=== PATIENT | female | born 1990 | race Caucasian/White ===

== ENCOUNTER 2021-12-26 12:16 | Outpatient (CLI) | payer BC, MEDICAID, SELFPAY ==
[2021-12-26] VITALS (13 sets, daily range): BP systolic 99–108; BP diastolic 59–65; PULSE 81–92; RESP 16–18; TEMP 36.8; O2SAT 97–98
[2021-12-26 13:27] LABS: Hematocrit 34.8 % (33.0-51.0); Hemoglobin* 11.2 gm/dL (12.0-16.0); Mean Corpuscular HGB Conc 32 gm/dL (32-36); Mean Corpuscular Hemoglobin 29 pg (26-34); Mean Corpuscular Volume 90 fL (80-100); Platelet Count* 263 K/uL (140-440); Red Blood Count 3.88 m/uL (4.00-5.20); Slide Review Reflex No; White Blood Count* 7.14 K/uL (4.50-11.00)
[2021-12-26 13:58] LABS: Alanine Aminotransferase* 14 U/L (4-35); Aspartate Amino Transferase* 17 U/L (12-35); Blood Urea Nitrogen* 6 mg/dL (5-24); Creatinine* 0.4 mg/dL (0.5-1.5); Estimated Glomerular Filt Rate 135.62
[2021-12-26 13:58] LABS: Total Protein Urine 12 mg/dL
[2021-12-26 13:59] LABS: Creatinine Urine 67.1 mg/dL
[2021-12-26 14:01] LABS: Clue Cells >20% Clue Cells Seen (None Seen); Trichomonas No Trichomonas Seen (None Seen); Yeast No Yeast Seen (None Seen)
[2021-12-26 14:19] LABS: Appearance Urine Cloudy (Clear); Bilirubin Urine Negative (Negative); Blood Urine Negative (Negative); Color Urine Yellow (Yellow); Glucose Urine Negative (Negative); Ketones Urine Negative (Negative); Leukocyte Esterase Urine Trace (Negative); Nitrite Urine Negative (Negative); Protein Urine Negative (Negative); Urobilinogen Urine 0.2 (0.2-1.0); pH Urine 7.5 (5.0-8.5)
[2021-12-26 14:27] LABS: RBC Urine 0-2 (0-2)
[2021-12-26 14:28] LABS: Amorphous Sediment Urine Few; Bacteria Urine Few
[2021-12-26 15:19] LABS: Fetal Fibronectin* Negative (Negative)
--- NOTE | 2021-12-26 15:28 | P.OBO_ITS ---
OB Outpatient HPI History of Present Illness Time Seen by Provider: 14:30 Date Seen: 12/26/21 History of Present Illness: Earnestine is a 31 year old at weeks gestation by LMP, STALIN 03/21/2022, presents with headache, visual changes, and abdominal cramping. Patient reports she always has some baseline cramping. She has noticed more in the last few days. She denies any recent intercourse. She did go swimming in their home pool with her kids recently and noted some changes in her discharge after. Patient also reports some intermittent dizziness and heart palpitations. Patient has known prolonged QT syndrome. Baby moving naturally: Yes Bleeding: No Contractions: Yes (Cramping) Leaking fluid: No Discharge: Yes Heartburn: No Back pain: No Meds Home Medications and Allergies Home Medications Medication Instructions Recorded Confirmed Type albuterol 90 mcg/actuation aerosol mcg INHALATION PRN 12/26/21 History inhaler shapcbskec-xivyonvvebsuw-mhzpenvs cap PRN 12/26/21 History 50 mg-325 mg-40 mg capsule lamotrigine 100 mg tablet mg PO DAILY 12/26/21 History lorazepam 0.5 mg tablet (Ativan) mg 12/26/21 History prenat.vits,kingsley,iru-yruc-qrlqw 1 tab PO DAILY 12/26/21 12/26/21 History Allergies Allergy/AdvReac Type Severity Reaction Status Date / Time latex Allergy Unknown Verified 12/13/21 14:31 omeprazole Allergy Unknown Verified 12/13/21 14:31 ranitidine Allergy Unknown Verified 12/13/21 14:31 seafood Allergy Unknown Uncoded 12/13/21 14:31 [facility] Medical History (Updated 12/26/21 @ 16:07 by Damari Orta CNM) History of depression Social History (Updated 12/19/21 @ 08:15 by Kelly Tellez) 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 ? Constitutional Constitutional: no acute distress Routine HEENT Exam Head: Present atraumatic Routine Respiratory Exam Comments: Regular Routine Cardiovascular Exam Cardiovascular: RRR Comments: EKG results: Normal rate with occasional PVC. Prolonged QT. Routine Exam External: Present normal external exam and discharge Detailed Labor and Delivery Exam Patient Gravid: yes Dilation (cm): 1 Effacement (%): 10 Cervix position: anterior Consistency: firm Tachysystole: No Contraction intensity: Mild (when palpable, not all palpate) Fetus (Single) Station: -4 Heart Rate Baseline: 135 Monitor Accelerations: Present (10x10) Monitor Decelerations: None Family Manager Variability: Moderate (11-25) (6-25 ) Routine Skin Exam Present intact Routine Neurological Exam Present alert and oriented X3 Routine Psychiatric Exam Present normal affect, cooperative and anxious Detailed Psychiatric Exam Mood and affect: Present flat Labs Labs Laboratory Tests 12/26/21 12/26/21 12/26/21 Range/Units Unknown 13:20 13:20 WBC 7.14 (4.50-11.00) K/uL RBC 3.88 L (4.00-5.20) m/uL Hgb 11.2 L (12.0-16.0) gm/dL Hct 34.8 (33.0-51.0) % MCV 90 (80-100) fL MCH 29 (26-34) pg MCHC 32 (32-36) gm/dL Plt Count 263 (140-440) K/uL BUN 6 (5-24) mg/dL Creatinine 0.4 L (0.5-1.5) mg/dL AST 17 (12-35) U/L ALT 14 (4-35) U/L Urine Color (Yellow) Urine Appearance (Clear) Urine pH (5.0-8.5) Ur Specific [place] (1.000-1.030) Urine Protein (Negative) Urine Glucose (UA) (Negative) Urine Ketones (Negative) Urine Blood (Negative) Urine Nitrite (Negative) Urine Bilirubin (Negative) Urine Urobilinogen (0.2-1.0) Ur Leukocyte Esterase (Negative) Urine RBC (0-2) Urine WBC (0-5) Ur Squamous Epith Cells (None-Few) Amorphous Sediment (None) Urine Bacteria (None) Urine Creatinine mg/dL Protein/Creatinin Ratio (0-0.19) Urine Total Protein mg/dL Vaginal Trichomonas (None Seen) Vaginal Yeast (None Seen) Vaginal Clue Cells (None Seen) Fibronectin Negative (Negative) 12/26/21 12/26/21 12/26/21 Range/Units 13:05 13:05 12:47 WBC (4.50-11.00) K/uL RBC (4.00-5.20) m/uL Hgb (12.0-16.0) gm/dL Hct (33.0-51.0) % MCV (80-100) fL MCH (26-34) pg MCHC (32-36) gm/dL Plt Count (140-440) K/uL BUN (5-24) mg/dL Creatinine (0.5-1.5) mg/dL AST (12-35) U/L ALT (4-35) U/L Urine Color Yellow (Yellow) Urine Appearance Cloudy A (Clear) Urine pH 7.5 (5.0-8.5) Ur Specific [place] 1.020 (1.000-1.030) Urine Protein Negative (Negative) Urine Glucose (UA) Negative (Negative) Urine Ketones Negative (Negative) Urine Blood Negative (Negative) Urine Nitrite Negative (Negative) Urine Bilirubin Negative (Negative) Urine Urobilinogen 0.2 (0.2-1.0) Ur Leukocyte Esterase Trace A (Negative) Urine RBC 0-2 (0-2) Urine WBC 2-5 (0-5) Ur Squamous Epith Cells None (None-Few) Amorphous Sediment Few A (None) Urine Bacteria Few A (None) Urine Creatinine 67.1 mg/dL Protein/Creatinin Ratio 0.10 (0-0.19) Urine Total Protein 12 mg/dL Vaginal Trichomonas No Trichomonas Seen (None Seen) Vaginal Yeast No Yeast Seen (None Seen) Vaginal Clue Cells >20% Clue Cells Seen (None Seen) Fibronectin (Negative) Assessment and Plan Assessment and plan (1) Bacterial vaginosis in : Status: Acute Assessment and Plan: Initially worked up for labor. Wet prep collected, >20% clue cells consi stent with BV. FFN collected, negative. UA/UC sent. CBC w/ pre-e labs Rx for Clindamycin 300 mg BID x 7 days Follow-up in clinic in 1 week, has appointment already with Dr. Terrell Reviewed warning s/sx of labor and when to return. (2) Visual changes: Status: Acute Assessment and Plan: CBC w/ pre-e labs, labs WNL. Visual changes resolved w/ rest. Declined Tylenol. Reviewed warning s/sx of pre-eclampsia. (3) Heart palpitations: Status: Acute Assessment and Plan: EKG, consistent with previous notation Has a referral to see a Clinical Cytogeneticist, has not been able to get in yet Reviewed common discomforts of the 2nd trimester. Long QT syndrome known, reviewed warning s/sx of when to seek emergency care. Plan for follow-up with symptoms at next visit and with cardiology. Plan Discharge home.
--- NOTE | 2021-12-26 16:31 | PC.OBNST ---
NST Note NST Note Start: 12/26/21 12:23 Freq: ONCE Status: Discharge Protocol: Document 12/26/21 14:30 WK (Rec: 12/26/21 16:04 WK [id number]) NST Note 5 Para (# of births) 3 EDC 03/21/22 Patient Presented with Complaint(s) of Contractions/cramping, Decreased movement, Nausea and vomiting,Headache Other Complaints Pt sent in from [facility] triage nurse for evaluation of decreased FM and r/o preeclampsia. Pt report feeling swollen and sore on wrists and ankles. States I feel like my face is more swollen. C/o headache, visual disturbances, and nausea, feeing decreased FM Only 4 times over the past 2 days. Also, C/O feeling cramping through out the day that comes and goes I don't know how often. Appropriate for Gestational Age Yes WILNER Muniz RNC Date 12/26/21 Appropriate for Gestational Age Yes RN Hannah RN Date 12/26/21 OB NST charge Yes Provider Evaluation of EFM Strip: Reactive: [] Appropriate for Gestational Age: [] Comments:
== END 2021-12-26 15:20 | disposition home or self-care (01) ==
LOC: OB OUT 12:16 → OB 12:21
PROVIDERS: Advanced Practice Midwife; Visit Provider Obstetrics & Gynecology
DX: O23.599 Infection of other part of genital tract in pregnancy, unspecified trimester (principal); O23.592 Infection of other part of genital tract in pregnancy, second trimester; B96.89 Other specified bacterial agents as the cause of diseases classified elsewhere; R00.2 Palpitations; R42 Dizziness and giddiness; R51.9 Headache, unspecified; H53.9 Unspecified visual disturbance; I45.81 Long QT syndrome; Z3A.28 28 weeks gestation of pregnancy
CPT/HCPCS: 36415; 59025; 81003; 81015; 82565; 84112; 84156; 84450; 84460; 84520; 85027; 87086; 87210; 93005; 99211; 99213

== ENCOUNTER 2021-12-28 11:17 | Outpatient (CLI) | payer BC, MEDICAID, SELFPAY ==
[2021-12-28 11:19] VITALS: PULSE 99; O2SAT 97
[2021-12-28 11:24] VITALS: BP 98/56; PULSE 103; PULSE 95; O2SAT 95
[2021-12-28 11:27] VITALS: RESP 16; TEMP 36.9
[2021-12-28 12:04] LABS: Appearance Urine Clear (Clear); Bilirubin Urine Negative (Negative); Blood Urine Negative (Negative); Color Urine Yellow (Yellow); Glucose Urine Negative (Negative); Ketones Urine 1+ (Negative); Leukocyte Esterase Urine Negative (Negative); Nitrite Urine Negative (Negative); Protein Urine 1+ (Negative); Specific Gravity Urine >= 1.030 (1.000-1.030); Urobilinogen Urine 0.2 (0.2-1.0)
[2021-12-28 12:16] LABS: Amorphous Sediment Urine Few; RBC Urine 0-2 (0-2); Squamous Epithelial Cell Urine Few (None-Few)
[2021-12-28] MEDS: LACTATED RINGERS 1000 ML IV (12:40)
[2021-12-28 13:26] VITALS: BP 109/66; PULSE 84
[2021-12-28] MEDS: NIFEdipine 10 MG CAPSULE 20 MG PO (13:39)
[2021-12-28 13:53] LABS: Fetal Fibronectin* Negative (Negative)
--- NOTE | 2021-12-28 14:15 | W.PM.OBO ---
OB Outpatient HPI History of Present Illness History of Present Illness: 31 year old woman at 28 1/7 weeks gestation by LMP consistent with 1st trimester ultrasound, STALIN 03/21/2022, presents with chief complaint of right lower quadrant pain. It is occasionally sharp and shooting. Comes and goes. Pain radiates into her right inner thigh. She was feeling no contractions upon presentation, but does report that she has had contractions in previous . No bleeding, no loss of fluid. Her is complicated by/notable for: 1. Episode of right lower quadrant pain in September. She ultimately underwent an MRI without contrast that was normal aside from a possible 6 cm fibroid. Follow-up ultrasound scheduled for next week. 2. Round ligament pain. She is followed by physical therapy. 3. Likely long QT syndrome. In the process of evaluation with [facility]. Her OB history is otherwise as documented in her problem list. She has never had a . Bleeding: No Contractions: No Meds Home Medications and Allergies Home Medications Medication Instructions Recorded Confirmed Type albuterol 90 mcg/actuation aerosol mcg INHALATION PRN 12/26/21 History inhaler ydnnehrtgx-qxkjrphwwdsgk-jouedcus cap PRN 12/26/21 History 50 mg-325 mg-40 mg capsule lamotrigine 100 mg tablet 100 mg PO DAILY 12/26/21 12/28/21 History lorazepam 0.5 mg tablet (Ativan) mg 12/26/21 History prenat.vits,kingsley,klu-ekzm-kinzx 1 tab PO DAILY 12/26/21 12/28/21 History Allergies Allergy/AdvReac Type Severity Reaction Status Date / Time latex Allergy Unknown Verified 12/13/21 14:31 omeprazole Allergy Unknown Verified 12/13/21 14:31 ranitidine Allergy Unknown Verified 12/13/21 14:31 seafood Allergy Unknown Uncoded 12/13/21 14:31 [facility] Medical History (Updated 12/28/21 @ 14:24 by Nicol Terrell MD) History of depression Social History (Updated 12/19/21 @ 08:15 by Kelly Tellez) 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: , 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, 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 Smoking Status: Never smoker Reproductive Health History : 5 Para: 3 History of multiple gestations: No History of ectopic pregnancies: No OB - H&P: Exam Physical Exam Vital signs: Temp Pulse Resp BP Pulse Ox 98.5 F 84 16 109/66 95 12/28/21 11:27 12/28/21 13:26 12/28/21 11:27 12/28/21 13:26 12/28/21 11:24 Narrative: EXAM: Vital Signs: as above Abdomen: Soft, mildly tender to deep palpation in right lower quadrant, no contractions palpated Fundal Height: Consistent with dates SVE: Per Pilar Horner RN, fingertip at internal os, long, high Nonstress test: Baseline 135, accelerations present, no decelerations, moderate variability. For short time, regular contractions are noted. These dissipate over prolonged monitoring. Labs Labs Laboratory Tests 12/28/21 12/28/21 Range/Units 12:40 11:56 Urine Color Yellow (Yellow) Urine Appearance Clear (Clear) Urine pH 6.0 (5.0-8.5) Ur Specific [place] >= 1.030 (1.000-1.030) Urine Protein 1+ A (Negative) Urine Glucose (UA) Negative (Negative) Urine Ketones 1+ A (Negative) Urine Blood Negative (Negative) Urine Nitrite Negative (Negative) Urine Bilirubin Negative (Negative) Urine Urobilinogen 0.2 (0.2-1.0) Ur Leukocyte Esterase Negative (Negative) Urine RBC 0-2 (0-2) Urine WBC 2-5 (0-5) Ur Squamous Epith Cells Few (None-Few) Amorphous Sediment Few A (None) Urine Bacteria None (None) Fibronectin Negative (Negative) Assessment and Plan Assessment and plan (1) contractions: Status: Acute Assessment and Plan: I am uncertain if this is the cause of her pain or not. She does not seem to be in labor. She was given a single dose of nifedipine 20 mg, and discomfort resolved. She will be asked to return with any recurrence of symptoms. Otherwise, she is to follow up on Friday next week. (2) Right lower quadrant abdominal pain affecting : Status: Acute Assessment and Plan: I actually suspect that the pain that she is describing is related to the psoas muscle given the location and radiation. I will send her a prescription for Flexeril to be used at home on a p.r.n. basis.
[2021-12-28 14:36] VITALS: BP 110/65; PULSE 93
--- NOTE | 2021-12-28 18:30 | PC.OBNST ---
NST Note NST Note Start: 12/28/21 11:10 Freq: ONCE Status: Active Protocol: Document 12/28/21 15:00 MMB (Rec: 12/28/21 16:18 MMB [id number]) NST Note 5 Para (# of births) 3 EDC 03/21/22 Patient Presented with Complaint(s) of Contractions/cramping Other Complaints Actively being treated for BV, pain radiating down right leg , abdominal pain after eating. Reactive No Appropriate for Gestational Age Yes WILNER Horner RN Date 12/28/21 Reactive No Appropriate for Gestational Age Yes WILNER Bronson RN Date 12/28/21 OB NST charge Yes Provider Evaluation of EFM Strip: Reactive: [] Appropriate for Gestational Age: [] Comments:
== END 2021-12-28 15:10 | disposition home or self-care (01) ==
LOC: OB OUT 11:18 → OB 14:27
PROVIDERS: Visit Provider Obstetrics & Gynecology
DX: O47.03 False labor before 37 completed weeks of gestation, third trimester (principal); Z3A.28 28 weeks gestation of pregnancy; R10.31 Right lower quadrant pain
CPT/HCPCS: 59025; 81003; 81015; 84112; 96360; 96361; 99213; A9270; J7120

== ENCOUNTER 2022-01-02 10:54 | Outpatient (RCR) | payer BC, MEDICAID, SELFPAY | END 2022-04-15 14:47 | disposition home or self-care (01) | PROVIDERS: Visit Provider Obstetrics & Gynecology | DX: R10.30 Lower abdominal pain, unspecified (principal); R27.8 Other lack of coordination; N39.3 Stress incontinence (female) (male); Z51.89 Encounter for other specified aftercare | CPT/HCPCS: 97110; 97112 ==

== ENCOUNTER 2022-01-02 12:01 | Outpatient (CLI) | payer BC, MEDICAID, SELFPAY ==
--- NOTE | 2022-01-02 12:15 | CRLHL7_ITS ---
For Patients: As a result of the Century Cures Act, medical imaging exams and procedure reports are released immediately into your electronic medical record. You may view this report before your referring provider. If you have questions, please contact your health care provider. INDICATION: Third trimester scan, evaluate growth. COMPARISON: 08/10/2021, 07/25/2021 TECHNIQUE: Real time holm scale imaging of the fetus was performed. FINDINGS: Sonographic imaging demonstrates a single living intrauterine gestation. Fetus demonstrates a regular cardiac rate of 147 beats per minute. Fetus has a vertex position. The placenta lies anteriorly. Amniotic fluid volume appears normal and there is a single deepest vertical pocket: 7.1 cm. The estimated weight is 1596gm which lies at the 92nd %. BPD 92nd percentile. HC 96th percentile. AC 86th percentile. FL 74th percentile. The HC/AC ratio measures 1.11 range (0.96-1.17). Possible fibroid located posteriorly versus uterine contraction measuring 6.3 x 6.9 x 2.5 cm. IMPRESSION: Sonographic gestational age 31 weeks 0 days and sonographic due date 03/06/2022. Sonographic age 15 days ahead of the clinical age. Estimated weight 92nd percentile. Abdominal circumference 86th percentile. Posterior fibroid versus uterine contraction. Anterior placenta. Dictated by Benji Guzmán MD @ 01/02/2022 12:51:08 PM (Electronically Signed)
== END 2022-01-02 12:02 | disposition home or self-care (01) ==
LOC: US 12:02
PROVIDERS: Visit Provider Obstetrics & Gynecology
DX: Z34.93 Encounter for supervision of normal pregnancy, unspecified, third trimester (principal); Z3A.31 31 weeks gestation of pregnancy
CPT/HCPCS: 76816

== ENCOUNTER 2022-01-06 10:32 | Emergency (ER) | payer BC, MEDICAID, SELFPAY ==
--- NOTE | 2022-01-06 11:17 | ED.NURSE ---
was told by her OB in [place] to present to [place] ED for antibodies. confirmed with Dr. Browning that the ED does not have capacity to do this
== END 2022-01-06 11:43 | disposition left against medical advice (07) ==
LOC: ED 11:28
PROVIDERS: Emergency Provider Emergency Medicine Emergency Medical Services
DX: Z53.21 Procedure and treatment not carried out due to patient leaving prior to being seen by health care provider (principal)

== ENCOUNTER 2022-01-09 13:14 | Outpatient (CLI) | payer BC, MEDICAID, SELFPAY ==
[2022-01-09 13:19] VITALS: PULSE 79; O2SAT 97
[2022-01-09 13:23] VITALS: BP 113/74; PULSE 93
[2022-01-09 13:34] VITALS: RESP 16; TEMP 37.1
--- NOTE | 2022-01-28 16:40 | PC.OBNST ---
NST Note NST Note Start: 01/09/22 13:25 Freq: ONCE Status: Discharge Protocol: Document 01/09/22 14:30 CUDDYH (Rec: 01/09/22 14:43 CUSOPHIEY [id number]) NST Note 5 Para (# of births) 3 EDC 03/21/22 Patient Presented with Complaint(s) of Decreased movement Reactive Yes Appropriate for Gestational Age Yes WILNER Corbett RN Date 01/09/22 Reactive Yes Appropriate for Gestational Age Yes WILNER Horner RNC Date 01/09/22 OB NST charge Yes The provider's electronic signature indicates the NST is reactive/appropriate for gestational age. *Note to provider: If an addendum is required, open the patient's chart and click on the note under the Nurse/Allied Health tab.
== END 2022-01-09 14:30 | disposition home or self-care (01) ==
LOC: OB OUT 13:14 → OB 13:16
PROVIDERS: Visit Provider Advanced Practice Midwife
DX: O47.03 False labor before 37 completed weeks of gestation, third trimester (principal); Z3A.29 29 weeks gestation of pregnancy
CPT/HCPCS: 59025; 99211; 99213

== ENCOUNTER 2022-01-30 17:18 | Outpatient (CLI) | payer BC, MEDICAID, SELFPAY ==
[2022-01-30 17:30] VITALS: PULSE 104; O2SAT 97
[2022-01-30 17:32] VITALS: TEMP 36.8
[2022-01-30 17:34] VITALS: BP 114/75; PULSE 102; PULSE 109; O2SAT 94
[2022-01-30 18:10] LABS: Appearance Urine Cloudy (Clear); Bilirubin Urine Negative (Negative); Blood Urine Trace-lysed (Negative); Color Urine Yellow (Yellow); Glucose Urine Negative (Negative); Ketones Urine 1+ (Negative); Leukocyte Esterase Urine 1+ (Negative); Nitrite Urine Negative (Negative); Protein Urine Negative (Negative); Specific Gravity Urine 1.015 (1.000-1.030); Urobilinogen Urine 0.2 (0.2-1.0)
[2022-01-30 18:44] LABS: Clue Cells No Clue Cells Seen (None Seen); Trichomonas No Trichomonas Seen (None Seen); Yeast No Yeast Seen (None Seen)
[2022-01-30 18:44] LABS: RBC Urine 0-2 (0-2); Squamous Epithelial Cell Urine Few (None-Few)
--- NOTE | 2022-01-30 19:13 | PC.OBNST ---
NST Note NST Note Start: 01/30/22 17:23 Freq: ONCE Status: Active Protocol: Document 01/30/22 19:05 GNOSTICIST (Rec: 01/30/22 19:12 GNOSTICIST [id number]) NST Note 5 Para (# of births) 3 EDC 03/21/22 Patient Presented with Complaint(s) of Vaginal bleeding,Decreased movement,Pain If Pain, describe location lower back, constant, achy Reactive Yes Appropriate for Gestational Age Yes WILNER Caballero Date 01/30/22 Reactive Yes Appropriate for Gestational Age Yes WILNER Horner Date 01/30/22 OB NST charge Yes Complete NST Note via Write Note Yes The provider's electronic signature indicates the NST is reactive/appropriate for gestational age. *Note to provider: If an addendum is required, open the patient's chart and click on the note under the Nurse/Allied Health tab.
== END 2022-01-30 19:00 | disposition home or self-care (01) ==
LOC: OB OUT 17:18 → OB 18:54
PROVIDERS: Visit Provider Advanced Practice Midwife
DX: Z34.93 Encounter for supervision of normal pregnancy, unspecified, third trimester (principal); Z3A.33 33 weeks gestation of pregnancy
CPT/HCPCS: 59025; 81003; 81015; 87086; 87210; 99213

== ENCOUNTER 2022-02-22 09:07 | Outpatient (CLI) | payer BC, MEDICAID, SELFPAY ==
--- NOTE | 2022-02-22 09:15 | CRLHL7_ITS ---
For Patients: As a result of the Century Cures Act, medical imaging exams and procedure reports are released immediately into your electronic medical record. You may view this report before your referring provider. If you have questions, please contact your health care provider. INDICATION: Size greater than dates, 36 week 1 day. TECHNIQUE: Ultrasound OB pelvis transabdominal. Real-time holm-scale imaging of the fetus was performed. COMPARISON: Ob ultrasound 01/02/2022. FINDINGS: Sonographic imaging demonstrates a single living intrauterine gestation. Fetus demonstrates a regular cardiac rate of 130 beats per minute. Fetus has a cephalic orientation. Amniotic fluid volume appears normal. Single deepest pocket measures 6 cm. Placenta position is anterior left wall. The following biometric measurements were obtained: Biparietal diameter: 9.7 cm, 39 week 4 day, greater than 97th percentile. Head circumference: 35.4 cm, 41 week 3 day, greater than 97th percentile. Abdominal circumference: 37.4 cm, 41 weeks 3 day, greater than 97th percentile. Femur length: 7.1 cm, 36 week 3 day, 56th percentile. FL/AC ratio 19%. HC/AC ratio 1.0. The composite ultrasound gestational age is calculated at 39 weeks 5 days with an estimated sonographic due date of 02/24/2022. The weight is estimated at 4029 grams, the greater than 97th percentile. IMPRESSION.: 1. Sonographic gestational age 39 week 5 day with sonographic due date of 02/24/2022. Sonographic age is 3 weeks 4 days ahead of clinical age. 2. Estimated weight greater than 97th percentile. Head circumference, biparietal diameter, and abdominal circumference are all greater than the 97th percentile. Dictated by Colton Warren MD @ 02/22/2022 10:12:57 AM (Electronically Signed)
== END 2022-02-22 09:08 | disposition home or self-care (01) ==
LOC: US 09:07
PROVIDERS: Visit Provider Registered Nurse
DX: O36.63X0 Maternal care for excessive fetal growth, third trimester, not applicable or unspecified (principal); Z3A.39 39 weeks gestation of pregnancy
CPT/HCPCS: 76816

== ENCOUNTER 2022-02-22 10:19 | Outpatient (CLI) | payer BC, MEDICAID, SELFPAY ==
[2022-02-23 11:58] LABS: Strep B DNA Probe NEGATIVE (Negative)
== END 2022-02-22 10:20 | disposition home or self-care (01) ==
LOC: NFLDREF 10:20
PROVIDERS: Visit Provider Obstetrics & Gynecology
DX: Z34.90 Encounter for supervision of normal pregnancy, unspecified, unspecified trimester (principal)
CPT/HCPCS: 76816; 87081; 87653

== ENCOUNTER 2022-02-25 11:35 | Outpatient (CLI) | payer BC, MEDICAID, SELFPAY ==
[2022-02-25 12:52] VITALS: BP 102/72; PULSE 104; RESP 16; TEMP 36.9
[2022-02-25 13:12] VITALS: PULSE 110; O2SAT 96
--- NOTE | 2022-02-25 17:42 | PC.OBNST ---
NST Note NST Note Start: 02/25/22 13:02 Freq: ONCE Status: Discharge Protocol: Document 02/25/22 13:25 WK (Rec: 02/25/22 14:05 WK [id number]) NST Note 5 Para (# of births) 3 EDC 03/21/22 Gestational Age In Weeks & Days 36 Weeks & 4 Days Patient Presented with Complaint(s) of Decreased movement Reactive Yes RN Cristy RNC Date 02/25/22 Reactive Yes RN Margarette RN Date 02/25/22 OB NST charge Yes Complete NST Note via Write Note Yes The provider's electronic signature indicates the NST is reactive/appropriate for gestational age. *Note to provider: If an addendum is required, open the patient's chart and click on the note under the Nurse/Allied Health tab.
== END 2022-02-25 13:50 | disposition home or self-care (01) ==
LOC: OB OUT 11:37 → OB 11:38
PROVIDERS: Visit Provider Obstetrics & Gynecology
DX: Z34.93 Encounter for supervision of normal pregnancy, unspecified, third trimester (principal); Z3A.36 36 weeks gestation of pregnancy
CPT/HCPCS: 59025; 99213

== ENCOUNTER 2022-03-06 11:56 | Outpatient (CLI) | payer BC, MEDICAID, SELFPAY ==
[2022-03-06 12:36] VITALS: BP 112/75; PULSE 107
[2022-03-06 12:39] VITALS: RESP 16; TEMP 36.6
[2022-03-06 12:57] LABS: Amnisure Rom* Negative
[2022-03-06 14:22] LABS: SARS PCR* Negative SARS-CoV-2 (Negative)
--- NOTE | 2022-03-06 15:38 | PC.OBNST ---
NST Note NST Note Start: 03/06/22 12:35 Freq: ONCE Status: Active Protocol: Document 03/06/22 14:50 WK (Rec: 03/06/22 15:36 WK [id number]) NST Note 5 Para (# of births) 3 EDC 03/21/22 Gestational Age In Weeks & Days 37 Weeks & 6 Days Patient Presented with Complaint(s) of Contractions/cramping,Leaking fluid,Other Reactive Yes RN Cristy RNC Date 03/06/22 Reactive Yes RN Catherine RN Date 03/06/22 OB NST charge Yes Complete NST Note via Write Note Yes The provider's electronic signature indicates the NST is reactive/appropriate for gestational age. *Note to provider: If an addendum is required, open the patient's chart and click on the note under the Nurse/Allied Health tab.
== END 2022-03-06 15:10 | disposition home or self-care (01) ==
LOC: OB OUT 12:01 → OB 12:03
PROVIDERS: Visit Provider Advanced Practice Midwife
DX: O47.03 False labor before 37 completed weeks of gestation, third trimester (principal); Z3A.37 37 weeks gestation of pregnancy
CPT/HCPCS: 59025; 84112; 87635; 99213

== ENCOUNTER 2022-03-11 08:10 | Inpatient (IN) | payer BC, MEDICAID, SELFPAY ==
[2022-03-11] VITALS (98 sets, daily range): BP systolic 79–135; BP diastolic 38–74; PULSE 71–130; RESP 16; TEMP 36.8–37.4; O2SAT 92–98; BMI 36.9
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
[2022-03-11] MEDS: LACTATED RINGERS 1000 ML 1,000 ML 125 ML IV (09:10)
[2022-03-11 09:16] LABS: Basophils Percent Auto 0.2 % (0.0-3.0); Eosinophils Percent Auto 0.5 % (0.0-7.0); Hemoglobin* 12.1 gm/dL (12.0-16.0); Immature Granulocytes Abs Auto 0.09 K/uL (0.00-0.30); Lymphocytes Percent Auto 10.4 % (20-44); Mean Corpuscular HGB Conc 34 gm/dL (32-36); Mean Corpuscular Hemoglobin 31 pg (26-34); Mean Corpuscular Volume 91 fL (80-100); Monocytes Percent Auto 7.2 % (0.0-11.0); Platelet Count* 209 K/uL (140-440); RDW Coefficient of Variation % 13.6 % (11.5-15.5); Red Blood Count 3.96 m/uL (4.00-5.20); White Blood Count* 12.56 K/uL (4.50-11.00)
[2022-03-11 09:21] LABS: Slide Review Reflex No
[2022-03-11 09:37] LABS: SARS PCR* Negative SARS-CoV-2 (Negative)
[2022-03-11] MEDS: LIDOCAINE 2% (PF) 5 ML VIAL EPIDURAL (10:19)
[2022-03-11] MEDS: ROPIVACAINE 0.2% 100 ml 100 ML 12 MG EPIDURAL (10:19)
--- NOTE | 2022-03-11 10:33 | PM.ANBPRC ---
[facility] Medical History (Updated 03/07/22 @ 13:14 by Nicol Terrell MD) Endometriosis History of depression IBS (irritable bowel syndrome) Mood disorder Nondependent cannabis abuse in remission Posttraumatic stress disorder Vaginal delivery Surgical History (Updated 03/07/22 @ 13:14 by Nicol Terrell MD) Abnormal colonoscopy H/O dilation and curettage H/O esophagogastroduodenoscopy S/P sinus surgery Status post laparoscopy Family History (Updated 03/07/22 @ 13:14 by Nicol Terrell MD) Uncle Long QT syndrome Other Asthma Bipolar 1 disorder Depression Generalized anxiety disorder Social History (Updated 03/05/22 @ 11:09 by Nicol Terrell MD) Narrative: Lives in [place]. 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 , 3 kids No tobacco No ETOH during No drug use. Smoking Status: Never smoker Meds Home Medications and Allergies Home Medications Medication Instructions Recorded Confirmed Type albuterol 90 mcg/actuation aerosol 1 mcg inhalation PRN PRN 12/26/21 03/06/22 History inhaler lamotrigine 100 mg tablet 100 mg PO DAILY 12/26/21 03/06/22 History docusate sodium 100 mg capsule 200 mg PO DAILY 03/06/22 03/06/22 History (Colace) Allergies Allergy/AdvReac Type Severity Reaction Status Date / Time latex Allergy Unknown Verified 03/05/22 10:15 omeprazole Allergy Unknown Verified 03/05/22 10:15 ranitidine Allergy Unknown Verified 03/05/22 10:15 seafood Allergy Unknown Uncoded 03/05/22 10:15 Results Labs Labs: Laboratory Results - last 24 hr 03/11/22 03/11/22 03/11/22 08:14 09:10 09:10 WBC 12.56 H RBC 3.96 L Hgb 12.1 Hct 36.0 MCV 91 MCH 31 MCHC 34 RDW Coeff of Keith 13.6 Plt Count 209 Neut % (Auto) 81.0 H Lymph % (Auto) 10.4 L [place] % (Auto) 7.2 Eos % (Auto) 0.5 Baso % (Auto) 0.2 Neut # (Auto) 10.20 H Lymph # (Auto) 1.30 Dare # (Auto) 0.90 Eos # (Auto) 0.10 Baso # (Auto) 0.00 Abs Immat Gran (auto) 0.09 SARS-CoV-2 (PCR) Negative SARS-CoV-2 Blood Type O Positive Antibody Screen NEGATIVE Vital Signs Vital Signs: Last Vital Signs Temp 98.2 F 03/11/22 08:29 Pulse 99 03/11/22 10:32 Resp 16 03/11/22 08:29 BP 94/53 L 03/11/22 10:32 Pulse Ox 96 03/11/22 10:28 Weight: 103.873 kg Height: 167.64 cm Anesthesia Procedures Epidural Insertion Patient Location: OB Reason for Block: primary anesthetic Patient Position: sitting Performed By: Khanh Pantoja Preanesthetic Checklist: IV checked, risks and benefits discussed, surgical consent, monitors and equipment checked, pre-op evaluation, timeout performed and anesthesia consent Prep: chlorhexidine gluconate Monitoring: blood pressure monitoring, director of cardiac rehabilitation, continuous pulse oximetry and heart rate Approach: midline Vertebral Space: lumbar (1-5) Needle Type: Tuohy needle Injection Technique: continuous catheter Needle gauge: 17 Needle Length (cm): 10 cm Needle Insertion Depth (cm): 6 Catheter Gauge: 19 Catheter Type: multi-orifice Catheter at skin depth (cm): 12 Test Dose Result: negative and lidocaine 1.5% with epinephrine 1 to 200,000 Events: other Intrathecal Patient Location: OB Start Time: : Stop Time: :30 Start Date: 03/11/22 Stop Date: 03/11/22
[2022-03-11] MEDS: LACTATED RINGERS 1000 ML 1,000 ML 925 ML IV (11:04)
[2022-03-11] MEDS: ONDANSETRON 2 MG/ML inj 4 MG IV (12:01)
[2022-03-11] MEDS: OXYTOCIN 30 unit/500 ML in NS 30 UNIT/500 ML BAG IVPB (13:44)
[2022-03-11] MEDS: fentaNYL 250 MCG/5 ML inj 100 MCG EPIDURAL (14:32)
--- NOTE | 2022-03-11 15:07 | PM.OBPNL ---
Pain Control Time Seen by Provider: 12:35 Date Seen: 03/11/22 Comments: Late entry: Subjective: Patient is comfortable w/ epidural/uncomfortable with contractions. Verbal consent obtained for AROM. Vital signs: Per electronic medical record. EFM: Baseline 130s, positive accelerations, sporadic decelerations after epidural due to hypotension, moderate variability, reactive. Category 2. [place]: Contractions every 5 minutes. SVE: 4 cm/90 %/-2. AROM: Copious amount of clear amniotic fluid. Assessment: 31-year-old 5 para 3013 at 38 weeks 4 days gestation early labor, may require augmentation. Suspected macrosomia. Plan: 1. Start Pitocin if contractions continue to be 5 or more minutes apart. 2. continue epidural 3. Copious amount amniotic fluid? Polyhydramnios. Suspected macrosomia
--- NOTE | 2022-03-11 16:55 | PM.OBPRCVD ---
Procedure Delivery date: 03/11/22 Procedure Done: Global Procedure Details: HPI: Earnestine is a 31 year-old G 5 P 3013 now 4 admitted on 03/11/2022 at approximately 9:00 a.m. at 38 Weeks, for Days gestation for spontaneous onset of labor.. AROM occurred at 12:41pm on 03/11/2022 with clear fluid. Labor Analgesia: Nitrous gas and epidural Pitocin: Yes. Labor onset: 03/11/2022 at 3:00 a.m. Complete: 03/11/2022 at 4:18 p.m.. Pushin03/11/2022 at 4:20 p.m.. heart tones during second stage were: Category 2: 130s with moderate variability. Small variable decelerations with a few contractions during pushing. At 4:29 p.m. a viable male infant delivered in vertex direct OA presentation over second-degree perineal laceration via spontaneous vaginal delivery.. The infant was placed on maternal abdomen. Cord was clamped and cut after a 60 second delay. Nose and mouth were bulb suctioned. Infant weight pending. 9 at 1 minute and 9 at 5 minutes. Shoulder dystocia: No. Nuchal cord: No Placenta delivered spontaneously and complete at 4:33 p.m. with a 3 vessel cord. Laceration(s): Second-degree perineal laceration. Repaired using 3-0 Vicryl suture in a/the usual manner. Blood loss: 297 mL. Blood loss measurement type: Quantitative Sponge and needles counts are correct. Specimen: None Mother and infant were stable after delivery. Infant's name: Sadiq The patient is planning on breast feeding. Events: Labor Augmentation and Covid Infection in Intrapartal Events: Labor Augmentation Delivery augmentation: rupture of membranes and pitocin Delivery monitor: external FHT and external uterine Route of delivery: Laceration description: Perineal - 2nd Degree Delivery repair: Vicryl Estimated blood loss (mL): 297 Anesthesia type: Local Disposition: floor Infant Gender: Male presentation: vertex Placental Delivery Description: Spontaneous Cord Description: 3 Vessels
[2022-03-11] MEDS: IBUPROFEN 600 MG TABLET PO (18:56)
[2022-03-11] MEDS: lamoTRIgine 100 MG TABLET PO (20:13)
[2022-03-11] MEDS: DOCUSATE SODIUM 100 MG CAPSULE 500 MG PO (20:52)
[2022-03-11] MEDS: ACETAMINOPHEN 500 MG TABLET 1000 MG PO (21:50)
[2022-03-12] VITALS (23 sets, daily range): BP systolic 80–116; BP diastolic 34–79; PULSE 72–97; RESP 12–20; TEMP 36.4–37.1; O2SAT 94–99
[2022-03-12] MEDS: IBUPROFEN 600 MG TABLET PO ×3 (00:37→20:59)
[2022-03-12] MEDS: CALCIUM CARBONATE 500 MG CHEW PO (00:53)
[2022-03-12] MEDS: ACETAMINOPHEN 500 MG TABLET 1000 MG PO ×3 (04:00→16:44)
[2022-03-12] MEDS: 5 % DEXTROSE/0.45% SOD CHLOR 1,000 ML 125 ML IV ×2 (04:00→12:28)
[2022-03-12 06:28] LABS: Hemoglobin* 10.5 gm/dL (12.0-16.0)
[2022-03-12] MEDS: ONDANSETRON 2 MG/ML inj 4 MG IV (07:42)
--- NOTE | 2022-03-12 09:21 | P.OBPN_ITS ---
OB - PN:Subj Subjective Time Seen by Provider: : Date Seen: 03/12/22 Interval history: Earnestine is a 31 year old G 5 P 4 at 38 4/7 weeks gestation that was admitted to the Center on 03/11/22 for active labor. She had an uncomplicated vaginal delivery. She delivered a viable male . She is breast feeding. Lochia is light with no clots per pt. Pt complaining of pain and swelling at epidural insertion location. Reports seeing stars and tightness in chest she thinks is r/t lower blood pressures. Dr. Núñez in the room to consent for tubal ligation made aware of pt's concerns which she assessed and discussed with pt. Otherwise Earnestine is doing well. Patient comments OB post-: pain well controlled status: feeding status: exclusively OB - PN: Obj Exam Physical Exam: Vital signs: Temp Pulse Resp BP Pulse Ox O2 Del Method 97.9 F 85 16 97/64 97 03/12/22 07:45 03/12/22 07:45 03/12/22 07:45 03/12/22 07:45 03/12/22 07:45 03/12/22 07:45 Constitutional: Constitutional: no acute distress Routine HEENT Exam: Head: Present normocephalic Eye: Present normal appearance Routine Neck Exam: Neck: Present full ROM Routine Respiratory Exam: Respiratory: Present CTA bilaterally Routine Cardiovascular Exam: Cardiovascular: Present RRR Routine Abdominal Exam: Abdominal: Present normal bowel sounds, soft and tenderness Routine Exam: External: Present normal external exam Comments: Deferred - pt reports no concerns only tenderness Routine Extremities Exam: Extremities: Present full ROM Routine Back/Spine/Pelvis Exam: Back/Spine: Present full ROM Routine Skin Exam: Skin: Present dry, intact, normal color and warm; Absent rash Routine Neurological Exam: Neurological: Present alert and oriented X3 Detailed Neurological Exam: Coma Scale: Eye Opening: Spontaneous (4) Verbal Response: Orientated (5) Routine Psychiatric Exam: Psychiatric: Present normal affect, normal thought process, cooperative, good insight and good judgment OB - PN: Obj Data Labs Labs: Laboratory Results - last 24 hr 03/11/22 03/11/22 03/11/22 08:14 09:10 09:10 WBC 12.56 H RBC 3.96 L Hgb 12.1 Hct 36.0 MCV 91 MCH 31 MCHC 34 RDW Coeff of Keith 13.6 Plt Count 209 Neut % (Auto) 81.0 H Lymph % (Auto) 10.4 L [place] % (Auto) 7.2 Eos % (Auto) 0.5 Baso % (Auto) 0.2 Neut # (Auto) 10.20 H Lymph # (Auto) 1.30 [place] # (Auto) 0.90 Eos # (Auto) 0.10 Baso # (Auto) 0.00 Abs Immat Gran (auto) 0.09 SARS-CoV-2 (PCR) Negative SARS-CoV-2 Blood Type O Positive Antibody Screen NEGATIVE 03/12/22 06:19 WBC RBC Hgb 10.5 L Hct MCV MCH MCHC RDW Coeff of Keith Plt Count Neut % (Auto) Lymph % (Auto) [place] % (Auto) Eos % (Auto) Baso % (Auto) Neut # (Auto) Lymph # (Auto) [place] # (Auto) Eos # (Auto) Baso # (Auto) Abs Immat Gran (auto) SARS-CoV-2 (PCR) Blood Type Antibody Screen OB - PN: A/P Vaginal Delivery Assessment and Plan (1) state: Status: Acute (2) Lactating mother: Status: Acute (3) Second degree perineal laceration during delivery: Status: Acute Plan 31 yo G5 now P4 post- day 1 Tubal Ligation planned for today Routine Care Plan to discharge home tomorrow Plan day: 1 Plan: routine care
--- NOTE | 2022-03-12 13:12 | P.PCN_ITS ---
Procedure Note Time Seen by Provider: 14:48 Date Seen: 03/12/22 Will [facility] bill your pro fee for this procedure?: Yes Procedure Description: Preoperative diagnosis: 31 year-old 5 para 4014 with undesired fertility. Postoperative diagnosis: Same Procedure: bilateral salpingectomy. Anesthesia: Spinal, local and MAC Surgeon: Diana Núñez MD Debug Technician: Elaina Ren MD IV fluid: 400 mL Estimated blood loss: 10 mL Urine output: 50 mL clear urine at the end of procedure Specimen: Bilateral fallopian tubes sent to pathology Findings: On exam under anesthesia the fundus was noted to be approximately 2 cm below the umbilicus. The uterus fallopian tubes and ovaries all appeared normal. Other findings: No abnormalities Procedure: Earnestine was taken was taken to the operating room where spinal and MAC anesthesia were found to be adequate. Mendoza catheter was then placed. She was placed in the dorsal supine position and prepped and draped in a normal sterile manner. 0.5% Marcaine was instilled in a horizontal manner, inferior to the umbilicus, 5 mL was used. The skin was then incised in a horizontal manner and the inferior aspect of the umbilicus. Approximately [] cm length incision was made. This incision was carried sharply to the underlying layer of fascia. The fascia was grasped with 2 Allis clamps and incised in the midline with a scalpel. This incision was carried laterally with Justin scissors. The peritoneum was identified and entered bluntly. No evidence of adhesions was identified. A small Kaleb-O self-retaining retractor was then placed. The left fallopian tube was brought to the incision, grasped with a Asmita clamp, and followed to the fimbriated end of the fallopian tube. The hand-held LigaSure dissecting instrument was used to perform serial pedicles putting at the fimbriated end of the tube. The tube was then removed from the cornea. The pedicles were inspected and bipolar cautery used to obtain hemostasis. The right fallopian tube was then brought to the incision and removed in a similar manner. Again excellent hemostasis noted. The Kaleb-O retractor was then removed. The fascia was reapproximated using 0 Vicryl in a running manner. The subcutaneous tissue was irrigated with a small amount of saline. The skin was reapproximated using 4 0 Monocryl in a running subcuticular manner. The patient tolerated this procedure well. Sponge, lap and instrument counts were correct x2 at the end of the procedure and the patient was taken to the recovery area in stable condition. The patient received 30 mg IV Toradol at the end of the procedure. Surgeon: Diana Núñez MD
[2022-03-12] MEDS: BUPIVACAINE 0.5% 30 ML INJECTION (14:40)
--- NOTE | 2022-03-12 14:56 | W.ANESCHARGE ---
Anesthesia Charges Start Date/Time Anesthesia Start Date: 03/12/22 Anesthesia Start Time: 13:50 Stop Date/Time Anesthesia Stop Date: 03/12/22 Anesthesia Stop Time: 14:55 Summary Emergency: No
--- NOTE | 2022-03-12 15:02 | W.ANESCHARGE ---
Anesthesia Charges Start Date/Time Anesthesia Start Date: 03/12/22 Anesthesia Start Time: 13:50 Stop Date/Time Anesthesia Stop Date: 03/12/22 Anesthesia Stop Time: 14:55 Summary Emergency: No
[2022-03-12] MEDS: ONDANSETRON 2 MG/ML inj 4 MG IVP (15:10)
[2022-03-12] MEDS: fentaNYL 100 MCG/2 ML inj 50 MCG IVP ×2 (15:22→15:30)
[2022-03-12] MEDS: LACTATED RINGERS 1000 ML 1,000 ML 35 ML IV (16:00)
[2022-03-12] MEDS: OXYCODONE 5 MG TABLET PO (16:44)
[2022-03-12] MEDS: DOCUSATE SODIUM 100 MG CAPSULE 500 MG PO (20:59)
[2022-03-12] MEDS: lamoTRIgine 100 MG TABLET PO (21:00)
[2022-03-13] MEDS: ACETAMINOPHEN 500 MG TABLET 1000 MG PO ×2 (04:46→10:41)
[2022-03-13 04:50] VITALS: BP 103/65; PULSE 81; RESP 16; TEMP 36.5; O2SAT 99
[2022-03-13] MEDS: IBUPROFEN 600 MG TABLET PO (06:19)
--- NOTE | 2022-03-13 08:11 | P.DS_ITS ---
DS: Providers Provider Date Seen: 03/13/22 Date of admission: 03/11/22 08:10 Primary care physician: Not a Local Provider Admitting Clinician: June Bunch CNM Attending Physician on discharge: Damari Orta CNM DS: Diagnosis Discharge Diagnosis (1) state: Status: Acute (2) Status post tubal ligation: Status: Acute (3) Lactating mother: Status: Acute (4) (normal spontaneous vaginal delivery): Status: Acute (5) Bipolar disorder: Status: Acute (6) Moderate anxiety: Status: Acute Exam Const: Vital Signs, click to edit/add: Vital Signs - 24 hr 03/12/22 12:00 03/12/22 15:47 03/12/22 14:51 Temperature 98.7 F 97.5 F L 97.9 F Pulse Rate 96 Pulse Rate [Pulse Oximeter] 85 74 Respiratory Rate 16 14 14 Blood Pressure 80/34 L Blood Pressure [Le ft Arm] 114/79 Blood Pressure [Ri ght Arm] 116/73 Pulse Oximetry 97 97 95 Oxygen Delivery Me thod Room Air 03/12/22 14:53 03/12/22 14:55 03/12/22 15:00 Temperature 97.9 F 97.9 F 97.9 F Pulse Rate 90 90 92 Pulse Rate [Pulse Oximeter] Respiratory Rate 13 15 14 Blood Pressure 87/45 L 94/56 L 96/57 L Blood Pressure [Le ft Arm] Blood Pressure [Ri ght Arm] Pulse Oximetry 97 96 96 Oxygen Delivery Me thod 03/12/22 15:05 03/12/22 15:10 03/12/22 15:15 Temperature 97.9 F 97.9 F 97.9 F Pulse Rate 89 84 72 Pulse Rate [Pulse Oximeter] Respiratory Rate 16 13 14 Blood Pressure 98/66 100/69 100/69 Blood Pressure [Le ft Arm] Blood Pressure [Ri ght Arm] Pulse Oximetry 97 97 97 Oxygen Delivery Me thod 03/12/22 15:20 03/12/22 15:35 03/12/22 15:25 Temperature 98.1 F Pulse Rate 97 74 76 Pulse Rate [Pulse Oximeter] Respiratory Rate 14 12 12 Blood Pressure 113/77 107/71 97/56 L Blood Pressure [Le ft Arm] Blood Pressure [Ri ght Arm] Pulse Oximetry 98 98 98 Oxygen Delivery Me thod Room Air Room Air Room Air 03/12/22 15:30 03/12/22 16:02 03/12/22 16:17 Temperature Pulse Rate 78 Pulse Rate [Pulse Oximeter] 76 84 Respiratory Rate 12 14 16 Blood Pressure 96/66 Blood Pressure [Le ft Arm] 111/72 Blood Pressure [Ri ght Arm] 103/70 Pulse Oximetry 99 94 95 Oxygen Delivery Me thod Room Air 03/12/22 16:32 03/12/22 17:02 03/12/22 17:32 Temperature 98 F Pulse Rate Pulse Rate [Pulse Oximeter] 84 89 88 Respiratory Rate 14 16 14 Blood Pressure Blood Pressure [Le ft Arm] 105/72 Blood Pressure [Ri ght Arm] 113/69 110/66 Pulse Oximetry 94 96 95 Oxygen Delivery Me thod 03/12/22 21:15 03/12/22 23:20 03/13/22 04:50 Temperature 97.9 F 98.3 F 97.7 F Pulse Rate Pulse Rate [Pulse Oximeter] 80 79 81 Respiratory Rate 16 16 16 Blood Pressure Blood Pressure [Le ft Arm] Blood Pressure [Ri ght Arm] 106/69 98/65 103/65 Pulse Oximetry 97 97 99 Oxygen Delivery Me thod Room Air Room Air Documenting provider has reviewed patient's vital signs: yes Common normals: no apparent distress, oriented x3, healthy appearing and alert HENMT: Common normals: normocephalic Head and scalp: normocephalic Eye: Common normals: PERRL Pupil: PERRL Neck & C-Spine: Common normals: full ROM and supple Chest: Common normals: inspection of chest normal Resp: Common normals: normal respiratory effort and clear to auscultation bilaterally Auscultation: clear to auscultation bilaterally Cardio: Common normals: regular rate and regular rhythm Rate: regular rate Rhythm: regular rhythm GI: Common normals: soft to palpation Inspection: incision (clean, dry, well approximated. Glue intact. At umbilicus) Palpation: soft : OB/external & speculum: Yes external exam normal and Yes perineal/vaginal laceration Laceration: 2nd (well approximated) Uterus: U/1 Lochia: scant Back & Pelvis: Common normals: thoracic and lumbar spine normal to inspection Extremity: Common normals: normal to inspection and full ROM Neuro: Common normals: oriented x3 Sensorium/orientation: alert Speech: speech normal Psych: Common normals: mental status grossly normal, thought process normal, speech normal and activity/motor behavior normal Speech: normal speech Thought process: normal thought process Skin: Common normals: no rashes or lesions noted Narrative: Umbilical incision. General skin exam: no rashes or lesions noted OB - DS: Summary Hospital Course Hospital Course: The patient is a 31 year old G [] P [] at [] weeks gestation that was admitted to the Center on 03/11/22 for []. She had an [uncomplicate d/complicated] [vaginal/] delivery. She delivered a viable [male/female] infant. She is [breast/bottle] feeding. the patient has done well. Peripartum Data delivery method: Vaginal Laceration description: Perineal - 2nd Degree Procedures: Procedures Operation Date: 03/12/22 12:25 Actual Procedure Side Surgeon p Post Tubal Ligation Diana Núñez MD Procedures: tubal ligation/salpingectomy complications: none Infant Gender: Male Discharge Plan: Home Status at Discharge Functional status at discharge: independent ambulation Overall status at discharge: patient is progressing back to baseline Time Spent with Patient Time attestation: Total time spent providing and/or coordinating discharge services: Discharge Plan Discharge Disposition: Home, Self-Care Date of Admission: 03/11/22 08:10 Attending Provider on Discharge: Damari Orta Primary Care Provider: Provider,Not a Local Condition: Stable Anticipated Discharge Date/Time: 03/13/22 12:00 Discharge Medications: New docusate sodium 100 mg Capsule 100 mg PO BID PRN (Reason: constipation) 30 Days Qty: 100 0RF ibuprofen 600 mg Tablet 600 mg PO Q6H PRNQty: 30 0RF oxycodone 5 mg Tablet 5 mg PO 3XD PRN7 Days Qty: 20 0RF Continued cyclobenzaprine 5 mg tablet 5 mg PO TID PRN (Reason: muscle spasm) Qty: 20 0RF albuterol 90 mcg/actuation aerosol 1 mcg INHALATION PRN PRN lamotrigine 100 mg tablet 100 mg PO DAILY docusate sodium [Colace] 100 mg capsule 200 mg PO DAILY Discharge Orders: Discharge Order (Routine); Ordered 03/13/22 Ordered By: Damari Orta Patient Education: Salpingectomy (DC), OB Vaginal/Breast Feeding Activity Restrictions/Additional Instructions: Discharge instructions were reviewed with the patient including signs and symptoms of infection and home going medications. Lifting Restrictions: 20 pounds for [address] while taking narcotic pain medication: Approximately 1 week. Off Work or School for 6 weeks. Nothing vaginally for 6 weeks Symptoms to report to doctor: -Bleeding that saturates more than one pad per hour ?-Passing clots larger than the size of a golf ball ?-Pain not relieved by prescribed medication ?-Fever above 100.4 degrees Fahrenheit ?-A foul vaginal odor ?-Difficulty in emotions, mood and functions ?-Thoughts of hurting yourself and/or ?-Painful, reddened area in your breast ?-Any drainage, redness or tenderness in your IV/epidural site ?-Severe headache that doesn't improve after taking medications ?-Changes in vision, including temporary loss of vision, blurred vision, and/or light sensitivity ?-Upper abdominal pain (usually under ribs on the right side) ?-Decrease in urination or painful, frequent urinating ?-Chest pain ?-Shortness of breath ?-Tenderness or pain with redness and/swelling in the calf(s) of your leg Follow [facility] a [facility]: * 1 week with mental health provider * 2 week visit: Answer concerns for care, screen for anxiety/depression. * 6 week visit: Annual exam. consultation services are available to all mothers and babies for the first year after delivery.? To make an appointment, please call [phone]. Activity Level: Activity as Tolerated Discharge Diet: Regular Follow Up Appointments: [facility] [Provider Group] Kathie Mcelroy APRN, FRESH WORK INSPECTOR [Nurse Practitioner] - (1 week) Forms: [employer] Info Instructions
[2022-03-13 09:09] VITALS: BP 109/72; PULSE 84; RESP 16; TEMP 36.6; O2SAT 99
[2022-03-13] MEDS: SIMETHICONE 80 MG TAB.CHEW PO (10:05)
[2022-03-13] MEDS: OXYCODONE 5 MG TABLET PO (10:41)
== END 2022-03-13 12:00 | disposition home or self-care (01) | DRG 541 ==
LOC: OB 08:10 → OB OUT 10:05 → OB 10:05
PROVIDERS: Obstetrics & Gynecology; Admitting Provider Advanced Practice Midwife; Visit Provider Advanced Practice Midwife
PROC: 0UT70ZZ Resection of Bilateral Fallopian Tubes, Open Approach (ICD-10-PCS; CPT 58605; principal; 2022-03-12 12:10)
DX: O99.344 Other mental disorders complicating childbirth (principal); O70.1 Second degree perineal laceration during delivery; F41.9 Anxiety disorder, unspecified; F31.9 Bipolar disorder, unspecified; O99.02 Anemia complicating childbirth; D64.9 Anemia, unspecified; Z30.2 Encounter for sterilization; Z86.16 Personal history of COVID-19; Z3A.38 38 weeks gestation of pregnancy; Z37.0 Single live birth
CPT/HCPCS: 00851; 01967; 36415; 85018; 85025; 86850; 86900; 86901; 87635; 88302; A9270; J1100; J2250; J2400; J2405; J2704; J2795; J3010; J3490; J7120; S5010

== ENCOUNTER 2023-05-09 11:21 | Outpatient (CLI) | payer BC, MEDICAID, SELFPAY ==
[2023-05-09 21:05] LABS: Chlamydia DNA Amplified* NOT DETECTED (No Detected); GC DNA Amplified* NOT DETECTED (No Detected)
== END 2023-05-09 11:22 | disposition home or self-care (01) ==
PROVIDERS: Visit Provider Obstetrics & Gynecology
DX: R10.2 Pelvic and perineal pain (principal); N92.0 Excessive and frequent menstruation with regular cycle; R68.82 Decreased libido; N80.9 Endometriosis, unspecified; D25.9 Leiomyoma of uterus, unspecified
CPT/HCPCS: 83001; 84443; 87491; 87591

== ENCOUNTER 2023-05-26 12:11 | Outpatient (CLI) | payer BC, MEDICAID, SELFPAY ==
--- NOTE | 2023-05-26 12:15 | CRLHL7_ITS ---
For Patients: As a result of the Century Cures Act, medical imaging exams and procedure reports are released immediately into your electronic medical record. You may view this report before your referring provider. If you have questions, please contact your health care provider. CLINICAL HISTORY: pelvic and perineal pain TECHNIQUE: 2D holm scale ultrasound. In addition color Doppler and spectral Doppler analysis was performed of the pelvis using a transabdominal and transvaginal approach. FINDINGS: The uterus measures 8.2 x 5.3 x 7.6 cm. No uterine fibroid. The endometrial lining measures 2.1 cm in thickness and is heterogeneous in echotexture. The right ovary measures 3.1 x 2.1 x 2.5 cm in size and the left ovary measures 3.0 x 2.2 x 1.6 cm. Left ovarian cyst is present measuring 1.6 x 1.3 x 0.9 cm. Right ovarian cyst is present measuring 9 x 11 x 14 millimeters. The ovaries demonstrate normal arterial and venous blood flow on color Doppler and spectral Doppler analysis. There are no suspicious fluid collections within the cul-de-sac. IMPRESSION: Small bilateral ovarian cysts. No ovarian torsion or excess pelvic free fluid. No adnexal mass. Heterogeneous endometrium measuring 2.1 cm. Dictated by Benji Guzmán MD @ 05/29/2023 12:06:29 PM (Electronically Signed)
== END 2023-05-26 12:12 | disposition home or self-care (01) ==
LOC: US 12:11
PROVIDERS: Visit Provider Obstetrics & Gynecology
DX: R10.2 Pelvic and perineal pain (principal); N83.201 Unspecified ovarian cyst, right side; N83.202 Unspecified ovarian cyst, left side; R93.89 Abnormal findings on diagnostic imaging of other specified body structures
CPT/HCPCS: 76830; 76856; 93976

== ENCOUNTER 2023-06-03 11:58 | Outpatient (CLI) | payer BC, OTHER, SELFPAY | END 2023-06-03 11:59 | disposition home or self-care (01) | LOC: NFLDREF 11:59 | PROVIDERS: Visit Provider Obstetrics & Gynecology | DX: N92.0 Excessive and frequent menstruation with regular cycle (principal) | CPT/HCPCS: 81513; 87481; 87661 ==

== ENCOUNTER 2023-07-10 09:18 | Day surgery (SDC) | payer BC, OTHER, SELFPAY ==
--- OUTSIDE RECORDS SUMMARY | 2023-07-10 09:26 | XMS_ITS | Clinical Summary ---
Author Name Unknown Organization [facility] Address [address] [place] [address] Care Team Providers Care Video Game Designer Name Role Phone Seema Reina P.A.-C. Primary Care Provider [phone] Source Comments Patient records contain information from all sites at [facility]. For routine questions regarding patient records, call [phone] during business hours, M-F 8:00 AM - 5:00 PM Central Time. Record requests for emergency care only can be directed to [phone] at any time.[facility] Allergies Active Allergy Reactions Criticality Noted Date Comments Magnesium Sulfate (Bulk) Other (see comments) 07/31/2020 Numb/weak feeling, couldn't walk Iodinated Contrast Media Palpitations 11/24/2017 Latex Itching 04/28/2017 Omeprazole Itching 04/28/2017 Shellfish Derived Anaphylaxis 04/28/2017 Ranitidine Hcl Itching 04/28/2017 Medications Medication Sig Dispensed Refills Start Date End Date Status docusate sodium (DOK) 100 mg capsule Take 1 capsule (100 mg total) by mouth 2 (two) times a day. 180 capsule 3 09/09/2017 Active Additional Information Patient taking differently: 250 mgoralDaily, 2 tablets daily, Informant: Self, Reported on 06/25/2023 albuterol (ACCUNEB) 2.5 mg /3 mL nebulizer solution Take 3 mL (2.5 mg total) by nebulization 4 (four) times a day as needed for wheezing or shortness of breath. 120 mL 1 05/08/2019 5 Active UNABLE TO FIND Take by mouth 2 (two) times a day. Med Name: Orilissa 200 mg 0 Active phentermine (ADIPEX-P) 37.5 mg tabletIndication s:Body Mass Index 32.0 To 32.9 Adult Take 1 tablet (37.5 mg total) by mouth every morning before breakfast. 30 tablet 0 02/27/2023 4 Discontinue d(Therapy completed) Active Problems Problem Noted Date Diagnosed Date Anemia 11/14/2021 Anemia Posthemorrhagic Acute (Blood Loss Anemia) 08/09/2020 Body Mass Index 32.0 To 32.9 Adult 07/31/2020 Anxiety 05/24/2019 Myalgia 08/01/2018 Stone Kidney Personal History 07/28/2018 Overview: 06/2018 Depression Anxiety 11/03/2017 Anemia Microcytic 04/03/2017 Irritable Bowel Syndrome Without Diarrhea 2016 Keratosis Pilaris 08/20/2016 Acne Cystic 02/21/2016 Migraine Headache 01/11/2016 Pain Back Lumbar 01/01/2014 Asthma Mild Intermittent 12/10/2013 Bleeding Perimenopausal 06/12/2011 Pelvic And Perineal Pain 06/10/2011 Resolved Problems Problem Noted Date Diagnosed Date Resolved Date Overweight Body Mass Index 25-29.9 Adult 06/20/2017 07/31/2020 Hemorrhage Gastrointestinal 11/21/2016 07/31/2020 Encounters Date Type Department Care Team Description 06/25/2023 12:00 PM CODING CLERKS SUPERVISOR Office Visit Department of Family Medicine, [facility], in [place], [place] [address] [phone] Seema Reina, P.A.-C. Preoperative Exam (Primary Dx); Asthma Mild Intermittent (HCC) 06/12/2023 Nurse Triage Department of Family Medicine, [facility], in [place], [place] [address] [phone] Kellee Obrien, R.N. Testing For Upper Respiratory Virus Symptoms 05/16/2023 Nurse Triage Department of Family Medicine, [facility], in [place], [place] [address] [phone] Lynn Mckeon R.N. Abdominal Pain 04/21/2023 Clinical Communication Department of Family Medicine, [facility], in [place], [place] [address] [address] Seema Reina P.A.-C. from Last 3 Months Immunizations Name Administration Dates Next Due DTP 10/27/1995, 2,03/15/1991,1990,1990 H1N1 All Forms 04/28/2009 Influenza, Unspecified 03/28/2017,04/07/2015 MMR 12/27/1991 OPV 10/27/1995, 2,01/19/1991,1990 Tdap 02/01/2022, 5,06/25/2013,2009 influenza vaccine quad (FLUZONE/FLUARIX) (6 months and older)(PF) 04/28/2009 Family History Medical History Relation Name Comments ADD Daughter Avri Asthma Daughter Avri Asthma Father Garrett Psychiatric Maternal Grandmother Clemencia arroyo Parkinson disease Paternal Grandmother joyce Parkinsonism Paternal Grandmother joyce Anxiety disorder Sister Anna Marie Asthma Sister Anna Marie Depression Sister Anna Marie Psychiatric Sister Anna Marie Relation Name Status Comments Daughter Avri Father Garrett Maternal Grandmother Clemencia arroyo Paternal Grandmother joyce Sister Anna Marie Social History Tobacco Use Types Packs/Day Years Used Date Smoking Tobacco: Never Passive Smoke Exposure: Never Smokeless Tobacco: Never Tobacco Cessation:Counseling Given: Not Answered Alcohol Use Standard Drinks/Week Comments No 0 (1 standard drink = 0.6 oz pur e alcohol) Humiliation, Afraid, Rape, and Kick questionnair e Answer Date Recorded Within the last year, have y ou been afraid of your partner or ex-partner? Patient declined 01/01/2023 Within the last year, have y ou been humiliated or emotionally abused in other ways by your partner or ex-partner? Patient declined 01/01/2023 Within the last year, have y ou been kicked, hit, slapped, or otherwise physically hurt by your partner or ex-partner? Patient declined 01/01/2023 Within the last year, have y ou been raped or forced to have any kind of sexual activity by your partner or ex-partner? Patient declined 01/01/2023 Social Connection and Isolation Panel [NHANES] A nswer Date Recorded In a typical week, how many times do you talk on the phone with family, friends, or neighbors? Patient declined 09/11/2022 How often do you get togethe r with friends or relatives? Patient declined 09/11/2022 How often do you attend pentecostalism or sikh serv ices? Patient declined 09/11/2022 Do you belong to any clubs o r organizations such as pentecostalism groups, unions, fraternal or athletic groups, or school groups? Patient declined 09/11/2022 How often do you attend meet ings of the clubs or organizations you belong to? Patient declined 09/11/2022 Are you , , di vorced, , never , or living with a partner? 09/11/2022 AUDIT-C Answer Date Recorded Q1: How often do you have a drink containing alc ohol? Never 09/11/2022 Average Number of Drinks Not on file 023 Frequency of Binge Drinking Not on file 08/22 Overall Financial Resource Strain (CARDIA) Answe r Date Recorded How hard is it for you to pa y for the very basics like food, housing, medical care, and heating? Patient declined 01/01/2023 PHQ-2 Answer Date Recorded PHQ-2 Score 0 06/25/2023 [facility] - Occupational Stress Questionnaire Answer Date Recorded Do you feel stress - tense, restless, nervous, or anxious, or unable to sleep at night because your mind is troubled all the time - these days? To some extent 09/11/2022 Exercise Vital Sign Answer Date Recorde d On average, how many days pe r week do you engage in moderate to strenuous exercise (like a brisk walk)? 0 days 09/11/2022 On average, how many minutes do you engage in exercise at this level? 0 min 09/11/2022 Hunger Vital Sign Answer Date Recorded Within the past 12 months, y ou worried that your food would run out before you got the money to buy more. Patient declined Within the past 12 months, t he food you bought just didn't last and you didn't have money to get more. Patient declined 05/2023 PRAPARE - Transportation Answer Date Re corded In the past 12 months, has l ack of transportation kept you from medical appointments or from getting medications? No 12/21 In the past 12 months, has l ack of transportation kept you from meetings, work, or from getting things needed for daily living? No 01/01/2023 Depression Answer Date Recor ded PHQ-9 Total Score (max 27) 7 08/20 Nutrition Answer Date Recorded Nutrition: EVOO Fat Source Unknown 08/11 Nutrition: Servings of Fruits/Vegetables per Day Not on file 08/11/2020 Dental Answer Date Recorded Dental: Regular Dentist Unknown 08/11/19 Employment Answer Date Recorded Employment status N/A 10/04/2021 Housing Stability Answer Date Recorded What is your living situation today? I have a [facility] place to live 01/01/2023 Education Answer Date Recorded What is the highest level of school you have completed or the highest degree you have received? Associate degree: occupational, technical, or vocational program 03/12/2019 Sex and Gender Information Value Date Recorded Sex Assigned at Female 09/11/2022 8:42 PM CDT Gender Identity Female 05/06/2017 10:05 AM CODING CLERKS SUPERVISOR Sexual Orientation Choose not to disclose 2022 8:42 PM CDT Last Filed Vital Signs Vital Sign Reading Time Taken Comments Blood Pressure 106/74 06/25/2023 11:52 AM CODING CLERKS SUPERVISOR Pulse 85 06/25/2023 11:52 AM CODING CLERKS SUPERVISOR Temperature 35.7 ??C (96.2 ??F) 10/09/2022 9:19 AM CD T Respiratory Rate 18 11/12/2021 6:00 PM CDT Oxygen Saturation 98% 09/16/2022 12:44 PM CDT Inhaled Oxygen Concentration - - Weight 92 kg (202 lb 13.2 oz) 06/25/2023 11:52 A M CODING CLERKS SUPERVISOR Height 172.8 cm (5' 8.03) 06/25/2023 11:[address] Body Mass Index 30.81 06/25/2023 11:52 AM CODING CLERKS SUPERVISOR Plan of Treatment Health Maintenance Due Date Last Done Comments CT Colonography 1990 Cologuard 1990 Hepatitis B Vaccines (1 of 3 - 3-dose series) 1990 Hepatitis C Screening 1990 COVID-19 Vaccine (#1) 03/11/1991 Pneumococcal vaccine (0-64 years) (1 of 2 - PCV) 1996 Asthma Action Plan 05/27/2017 Colonoscopy 08/29/2020 08/30/2015 Influenza Vaccine (#1) 2023 7, 04/07/2015, 04/28/2009 Asthma Control Test Questionnaire 10/03/2023 10/02/2022, 10/02/2022 Cervical Cancer Screening 08/10/20242021, 10/23/2017 (Performed elsewhere), 01/22/2013 DTaP,Tdap,and Td Vaccines (10 - Td or Tdap) 02/02/2032 02/01/2022, 01/30/2015, 06/25/2013, Additional history exists HIV Screening Completed 01/19/2013 Glucose Test for Med Monitoring Discontinued 11/12/2021, 11/06/2021, 10/23/2021, Additional history exists Depression Screening (Annual PHQ-2) Completed 06/25/2023, 06/25/2023 Colorectal Cancer Surveillance Discontinued HPV Vaccines Aged Out No longer eligi ble based on patient's age to complete this topic Care Teams Video Game Designer Relationship Specialty Start Date End Date Seema Reina P.A.-C. [address] [place] [phone] PCP - General 09/07/20
--- OUTSIDE RECORDS SUMMARY | 2023-07-10 09:26 | XMS_ITS | Encounter Summary ---
Author Name Unknown Organization [facility] Address [address] [place] [address] Care Team Providers Care Booky Name Role Phone Seema Reina P.A.-C. Primary Care Provider [phone]- [phone] Reason for Visit * Reason Onset Date Comments Testing For Upper Respiratory Virus Symptoms Encounter Details Date Type Department Care Team (Late st Contact Info) Description 06/12/2023 Nurse Triage Department of Family Medicine, [facility], in [place], [place] [address] [place] [address] Kellee Obrien, RRileyN. Testing For Upper Respiratory Virus Symptoms Social History Tobacco Use Types Packs/Day Years Used Date Smoking Tobacco: Never Passive Smoke Exposure: Never Smokeless Tobacco: Never Alcohol Use Standard Drinks/Week Comments No 0 [...] declined 09/11/2022 How often do you attend mandaen or cheondoism serv ices? Patient declined 09/11/2022 Do you belong to any clubs o r organizations such as mandaen groups, unions, fraternal or athletic groups, or [...] PHQ-2 Answer Date Recorded PHQ-2 Score 0 10/09/2022 [facility] - Occupational Stress Questionnaire Answer Date Recorded [...] your living situation today? [facility] 01/01/2023 Education Answer Date Recorded What is the highest level of school you have completed or the highest degree you have received? Associate degree: occupational, technical, or vocational program 03/12/2019 Sex and Gender Information Value Date Recorded Sex Assigned at Female 09/11/2022 8:42 PM CDT Gender Identity Female 05/06/2017 10:05 AM TREE PULLER Sexual Orientation Choose not to disclose 2022 8:42 PM CDT documented as of this encounter Miscellaneous Notes * Telephone Encounter - Soledad John L.PRileyN. - 06/13/2023 2:13 PM TREE PULLER Given to DOS staff to get scheduled PULLER * Telephone Encounter - Kellee Obrien R.N. - 06/12/2023 2:55 PM TREE PULLER Chief Complaint / Reason for Call Patient is a 32 y.o. female calling regarding Testing For Upper Respiratory Virus Symptoms. Assessment Concern: nausea, cold chills, light-headed, weakness, extreme fatigue, not able to measure her temperature. Her sister and their entire family have been diagnosed with influenza and caller has been in close contact with them. Present for: 2 days Home cares tried: rest Calling to request: Testing for influenza A so she knows if she has it or not. She does not want totake Tamiflu. Caller understands that testing for influenza A will not alter her course of treatment. The recommended disposition is Home Care. She requests a message be sent to her PCP asking for a laboratory test for influenza. She cannot currently access her portal account. Her phone number is [phone] and it is fine to leave a detailed message. Reason for Disposition [1] Probable influenza (fever) with no complications AND [2] NOT HIGH RISK Protocols used: Influenza (Flu) - Zizmoagg-KDMBN-RG Care Advice Patient/Caregiver understands and will follow care advice?: Yes, able to teach back REASSURANCE AND EDUCATION - INFLUENZA: * Influenza is commonly known as the 'flu'. * There are things that you can do to feel better and decrease your symptoms. * Here is some care advice that should help. INFLUENZA - GENERAL CARE ADVICE: * Cough: Use cough drops. * Feeling dehydrated: Drink extra liquids. If the air in your home is dry, use a humidifier. * Fever: For fever over 101 F (38.3 C), take acetaminophen every 4 to 6 hours (Adults 650 mg) OR ibuprofen every 6 to 8 hours (Adults 400 mg). * Muscle aches, headache, and other pains: Often this comes and goes with the fever. Take acetaminophen every 4 to 6 hours (Adults 650 mg) OR ibuprofen every 6 to 8 hours (Adults 400 mg). * Sore throat: Try throat lozenges, hard candy or warm chicken broth. INFLUENZA - ISOLATION IS NEEDED UNTIL AFTER FEVER IS GONE: * If you have flu-like symptoms, please stay home until the fever is gone for at least 24 hours offfever-reducing medicines. A temperature of 100 F (37.8C) or higher is a fever. * Do NOT go to work or school. * Do NOT go to mandaen, child life assistant centers, shopping, or other public places. * Do NOT shake hands. * Avoid close contact with others (hugging, kissing). FOR A RUNNY NOSE - BLOW YOUR NOSE: * Nasal mucus and discharge help wash viruses and bacteria out of the nose and sinuses. * Blowing your nose helps clean out your nose. Use a handkerchief or a paper tissue. * If the skin around your nostrils gets irritated, apply a tiny amount of petroleum ointment to thenasal openings once or twice a day. NASAL WASHES FOR A STUFFY NOSE: * Introduction: Saline (salt water) nasal irrigation (nasal wash) is an effective and simple home remedy for treating stuffy nose and sinus congestion. The nose can be irrigated by pouring, spraying,or squirting salt water into the nose and then letting it run back out. * How it Helps: The salt water rinses out excess mucus and washes out any irritants (dust, allergens) that might be present. It also moistens the nasal cavity. * You can use a saline nasal spray bottle (available mpcu-azr-dyyrbgz). NASAL WASHES - BUCK-HL-LQDG INSTRUCTIONS: * STEP 1: Lean over a sink. * STEP 2: Gently squirt or spray warm salt water into one of your nostrils. * STEP 3: Some of the water may run into the back of your throat. Spit this out. If you swallow thesalt water it will not hurt you. * STEP 4: Blow your nose to clean out the water and mucus. * STEP 5: Repeat steps 1 through 4 for the other nostril. You can do this a couple times a day if it seems to help you. MEDICINES FOR STUFFY OR RUNNY NOSE: * Most cold medicines that are available kgrt-eyq-ohekumn (OTC) are not helpful. NASAL DECONGESTANTS FOR A VERY STUFFY NOSE: * MOST PEOPLE DO NOT NEED TO USE THESE MEDICINES. * If your nose feels blocked, you should try using nasal washes first. NASAL DECONGESTANTS - EXTRA NOTES AND WARNINGS: * Do not use these medicines for more than 3 days. Reason: Rebound nasal congestion when you stop taking them. * Before using any medicine, read all the instructions on the package. COUGH DROPS FOR COUGH: * Cough drops can help a lot, especially for mild coughs. They reduce coughing by soothing your irritated throat and removing that tickle sensation in the back of the throat. * Cough drops also have the advantage of portability - you can carry them with you. * Cough drops are available qngh-vpa-mbxtwzb (OTC). * HOME REMEDY - HARD CANDY: Hard candy works just as well as a medicine-flavored OTC cough drops. COUGH MEDICINES: * COUGH DROPS: Pqjr-caq-qzqytde cough drops can help a lot, especially for mild coughs. They soothean irritated throat and remove the tickle sensation in the back of the throat. Cough drops are easyto carry with you. * HOME REMEDY - HARD CANDY: Hard candy works just as well as usoj-hlm-ycvpryr cough drops. People who have diabetes should use sugar-free candy. * HOME REMEDY - HONEY: This old home remedy has been shown to help decrease coughing at night. The adult dosage is 2 teaspoons (10 ml) at bedtime. AVOID TOBACCO SMOKE: * Avoid smoke from tobacco and e-cigarettes. * Smoking or being exposed to smoke makes coughs much worse. COUGHING SPELLS: * Drink warm fluids. Inhale warm mist. This can help relax the airway and also loosen up phlegm. * Suck on cough drops or hard candy to coat the irritated throat. PAIN AND FEVER MEDICINES: * For pain or fever relief, take either acetaminophen or ibuprofen. * They are zvxw-ank-aibvjlg (OTC) drugs that help treat both fever and pain. You can buy them at the drugstore. * Treat fevers above 101 F (38.3 C). PAIN AND FEVER MEDICINES - EXTRA NOTES AND WARNINGS: * Before taking any medicine, read all the instructions on the package. NO ASPIRIN: * Do not use aspirin for treatment of fever or pain. * Reason: there is an association between influenza and Jl' Syndrome. EXPECTED COURSE: * Fever 2 to 3 days * Nasal discharge 7 to 14 days * Cough 2 to 3 weeks CALL BACK IF: * Fever lasts over 3 days * Runny nose lasts over 10 days * Cough lasts over 3 weeks * Difficulty breathing occurs * You become worse PULLER documented in this encounter Plan of Treatment Not on file documented as of this encounter Visit Diagnoses Not on filedocumented in this encounter Additional Health Concerns Assessment Noted Time PHQ-9 Depression Total Score: 7 08/20/19 20 11:28 AM TREE PULLER documented as of this encounter Care Teams Booky Relationship Specialty Start Date End Date Seema Reina P.A.-C. [address] [place] [phone] PCP - General 09/07/20 documented as of this encounter
--- OUTSIDE RECORDS SUMMARY | 2023-07-10 09:26 | XMS_ITS | Referral Summary ---
Author Name Unknown Organization [facility] Address [address] [place] [address] Care Team Providers Care Avionics Technician Name Role Phone Seema Reina P.A.-C. Primary Care Provider [phone]- [phone] Source Comments Patient records contain information from all sites at [facility]. For routine questions regarding patient records, call [phone] during business hours, M-F 8:00 AM - 5:00 PM Central Time. Record requests for emergency care only can be directed to [phone] at any time.[facility] Encounters Date Type Department Care Team Description 06/25/2023 12:00 PM PERCH MACHINE INSPECTOR Office Visit Department of Family Medicine, [facility], in [place], [place] [address] [place] [address] Seema Reina P.ARiley-CRiley Preoperative Exam (Primary Dx); Asthma Mild Intermittent (HCC) 06/12/2023 Nurse Triage Department of Family Medicine, [facility], in [place], [place] [address], [place] [address] Kellee Obrien RYvette Testing For Upper Respiratory Virus Symptoms 05/16/2023 Nurse Triage Department of Family Medicine, [facility], in [place], [place] [address] [place] [address] Lynn Mckeon R.N. Abdominal Pain 04/21/2023 Clinical Communication Department of Family Medicine, [facility], in [place], [place] [address], [place] [address] Seema Reina P.A.-C. from Last 3 Months Allergies Active Allergy Reactions Criticality Noted Date [...] Adult 06/20/2017 07/31/2020 Hemorrhage Gastrointestinal 11/21/2016 07/31/2020 Immunizations Name Administration Dates Next Due DTP 10/27/1995, 2,03/15/1991,1990,1990 H1N1 All Forms 04/28/2009 Influenza, Unspecified 03/28/2017,04/07/2015 MMR 12/27/1991 OPV 10/27/1995, 2,01/19/1991,1990 Tdap 02/01/2022, 5,06/25/2013,2009 influenza vaccine quad (FLUZONE/FLUARIX) (6 months and older)(PF) 04/28/2009 Social History Tobacco Use Types Packs/Day Years [...] declined 09/11/2022 How often do you attend hindu or jew serv ices? Patient declined 09/11/2022 Do you belong to any clubs o r organizations such as hindu groups, unions, fraternal or athletic groups, or [...] Answer Date Recorded PHQ-2 Score 0 06/25/2023 [facility] Health - Occupational [...] your living situation today? I have a [facility] place to live 01/01/2023 Education Answer Date Recorded What is the highest level of school you have completed or the highest degree you have received? Associate degree: occupational, technical, or vocational program 03/12/2019 Sex and Gender Information Value Date Recorded Sex Assigned at Female 09/11/2022 8:42 PM CDT Gender Identity Female 05/06/2017 10:05 AM PERCH MACHINE INSPECTOR Sexual Orientation Choose not to disclose 2022 8:42 PM CDT Last Filed Vital Signs Vital Sign Reading Time Taken Comments Blood Pressure 106/74 06/25/2023 11:52 AM PERCH MACHINE INSPECTOR Pulse 85 06/25/2023 11:52 AM PERCH MACHINE INSPECTOR Temperature 35.7 ??C (96.2 ??F) 10/09/2022 9:19 AM CD T Respiratory Rate 18 11/12/2021 6:00 PM CDT Oxygen Saturation 98% 09/16/2022 12:44 PM CDT Inhaled Oxygen Concentration - - Weight 92 kg (202 lb 13.2 oz) 06/25/2023 11:52 A M PERCH MACHINE INSPECTOR Height 172.8 cm (5' 8.03) 06/25/2023 11:[address] Body Mass Index 30.81 06/25/2023 11:52 AM PERCH MACHINE INSPECTOR Plan of Treatment Not on file Care Teams Avionics Technician Relationship Specialty Start Date End Date Seema Reina P.A.-C. [address] [place] [phone] PCP - General 09/07/20
--- OUTSIDE RECORDS SUMMARY | 2023-07-10 09:26 | XMS_ITS | Encounter Summary ---
Author Name Unknown Organization [facility] Address [address] [place] [address] Care Team Providers Care Label Coder Name Role Phone Seema ReianARiley-Zelalem Primary Care Provider [phone]- [phone] Reason for Visit * Reason Comments Pre-op Exam Endometriosis with Roxy Terrell on 07/10/23 * Appointment Request (Routine) - Closed Specialty Diagnoses / Procedures Referred By Heriberto jewell Referred To Contact Family Medicine Referral ID Status Reason Start Date Expiration Date Visits Re quested Visits Authorized [id number] Closed 06/05/2023 06/04/2024 1 1 Encounter Details Date Type Department Care Team (Late st Contact Info) Description 06/25/2023 12:00 PM CHANGE ADVISOR Office Visit Department of Family Medicine, [facility], in [place], [place] [address] [place] [address] Seema Reina P.A.-Zelalem [address] [place] [address] Preoperative Exam (Primary Dx); Asthma Mild Intermittent (HCC) Social History Tobacco Use Types Packs/Day Years [...] declined 09/11/2022 How often do you attend baptism or anabaptism serv ices? Patient declined 09/11/2022 Do you belong to any clubs o r organizations such as baptism groups, unions, fraternal or athletic groups, or [...] Answer Date Recorded PHQ-2 Score 0 06/25/2023 [facility] Occupat ional Health - Occupational [...] your living situation today? I have a [facility] place to live 01/01/2023 Education Answer Date Recorded What is the highest level of school you have completed or the highest degree you have received? Associate degree: occupational, technical, or vocational program 03/12/2019 Sex and Gender Information Value Date Recorded Sex Assigned at Female 09/11/2022 8:42 PM CDT Gender Identity Female 05/06/2017 10:05 AM CHANGE ADVISOR Sexual Orientation Choose not to disclose 2022 8:42 PM CDT documented as of this encounter Last Filed Vital Signs Vital Sign Reading Time Taken Comments Blood Pressure 106/74 06/25/2023 11:52 AM CHANGE ADVISOR Pulse 85 06/25/2023 11:52 AM CHANGE ADVISOR Temperature - - Respiratory Rate - - Oxygen Saturation - - Inhaled Oxygen Concentration - - Weight 92 kg (202 lb 13.2 oz) 06/25/2023 11:52 A M CHANGE ADVISOR Height 172.8 cm (5' 8.03) 06/25/2023 11:52 AM Nichelle Body Mass Index 30.81 06/25/2023 11:52 AM CHANGE ADVISOR documented in this encounter Patient Instructions * Patient Instructions* Seema Reina P.A.-C. - 06/25/2023 12:00 PM CHANGE ADVISOR No aspirin-containing products or over the counter vitamins/ supplements 7 days prior to procedure or ibuprofen 24 hours before surgery. GE ADVISOR documented in this encounter Progress Notes * Seema Reina P.A.-C. - 06/25/2023 12:00 PM CST FAMILY MEDICINE PREOPERATIVE EXAM: PROPOSED SURGERY DATE: 07/10/2023. SURGEON: Dr. Terrell. PROPOSED SURGERY: Lap ovarian cystectomy, D&C and ablation. LOCATION: [facility] SUBJECTIVE HISTORY OF PRESENT ILLNESS Earnestine Ulloa is a pleasant 32 y.o. female who presents to the clinic today for preoperativeanesthetic medical exam for the above-mentioned procedure. She states she is feeling well and has no complaints at this time. REVIEW OF SYSTEMS Constitutional: - Negative for fever and night sweats. Eyes: - Negative for visual problems. ENT: - Negative for difficulty hearing. Respiratory: - Negative for shortness of breath and wheezing. Cardiovascular: - Negative for chest pain, pressure or tightness and rapid or fluttering heart beat. Gastrointestinal: - Negative for constipation, diarrhea and heartburn. Genitourinary: - Negative for difficulty urinating and pain with urination. Hematologic: - Negative for bruises or bleeds easily. Psychiatric/Behavioral: - Negative for loud snoring and stopping breathing, choking, or gasping while asleep. The following portions of the patient's history were reviewed and updated as appropriate: allergies, current medications, family history, medical history, social history, surgical history, and problem list. Allergies Allergen Reactions Epsom Salt [Magnesium Sulfate (Bulk)] Other (see comments) Numb/weak feeling, couldn't walk Iodinated Contrast Media Palpitations Latex Itching Prilosec [Omeprazole] Itching Shellfish Derived Anaphylaxis Zantac [Ranitidine Hcl] Itching Current Outpatient Medications: albuterol (ACCUNEB) 2.5 mg /3 mL nebulizer solution, Take 3 mL (2.5 mg total) by nebulization 4 (four) times a day as needed for wheezing or shortness of breath., Disp: 120 mL, Rfl: 1 docusate sodium (DOK) 100 mg capsule, Take 1 capsule (100 mg total) by mouth 2 (two) times a day. (Patient taking differently: Take 250 mg by mouth daily. 2 tablets daily), Disp: 180 capsule, Rfl: 3 UNABLE TO FIND, Take by mouth 2 (two) times a day. Med Name: Orilissa 200 mg, Disp: , Rfl: OBJECTIVE VITAL SIGNS BP 106/74 (BP Location: Right arm, Patient Position: Sitting, Cuff Size: Large) Pulse 85 Ht 172.8 cm Wt 92 kg LMP 06/09/2023 (Approximate) BMI 30.81 kg/m?? PHYSICAL EXAMINATION General: Well-nourished, well-developed 32 y.o. in no apparent distress. Awake, alert, age appropriate. HEENT: Head is normocephalic, atraumatic. Pupils round and reactive bilaterally. EOM's intact. Conjunctiva and sclera are clear. TM's are normal bilaterally. Oropharynx pink and moist without exudateor erythema. Mallampati I. Neck: Neck is supple without lymphadenopathy. Cardiovascular: Regular rate and rhythm without murmurs. Lungs: Clear to auscultation bilaterally with no adventitious sounds Abdomen: Bowel sounds present in all quadrants. Soft, non-tender with no palpable organomegaly. Skin: Warm, pink, and dry. No rashes or lesions Extremities: No peripheral edema. Neurologic: Alert and oriented x3. Bilateral patellar tendon DTRs 2+/4+. SURGICAL RISK FACTORS: 1. Cardiac: None. 2. Pulmonary: History of asthma come well-controlled not on inhaler therapy. 3. History Bacterial Endocarditis: None. 3. Diabetes: None. 4. Obstructive sleep apnea: None. Stop Bang Total Score: 1 5. Anesthesia reactions: None. 6. Bleeding or clotting disorders: None. 7.Anticoagulation: None. 8. Infection/Immunosuppression: None. 9. GERD: None. 10. History of MRSA skin infections: None. 11. Mallampati Class: I. 12. ASA Class: II. ASSESSMENT / PLAN IMPRESSION/REPORT/PLAN: #1 Preoperative Exam - This patient is medically optimized for the above-mentioned procedure. - She is capable of achieving greater than 4 METS without cardiopulmonary symptoms. - Advised no aspirin-containing products 7 days prior to procedure. - Medication instructions include: none. - No labs indicated at this time. - Follow-up as needed. #2 Asthma Mild Intermittent (HCC) -Symptoms are currently well controlled. Patient does not use any inhalers on a regular basis. All questions have been answered and those present are in agreement with this plan. Seema Reina P.A.-C. GE ADVISOR documented in this encounter Plan of Treatment Not on file documented as of this encounter Visit Diagnoses Diagnosis Preoperative Exam- Primary Asthma Mild Intermittent (HCC) documented in this encounter Additional Health Concerns Assessment Noted Time PHQ-9 Depression Total Score: 7 08/20/19 20 11:28 AM CHANGE ADVISOR documented as of this encounter Care Teams Label Coder Relationship Specialty Start Date End Date Seema Reina P.A.-C. [address] [phone] PCP - General 09/07/20 documented as of this encounter
--- OUTSIDE RECORDS SUMMARY | 2023-07-10 09:26 | XMS_ITS ---
Author Name Unknown Organization [facility] Address [address] [place] [address] Care Team Providers Care Other Sales Support Worker Name Role Phone Unavailable Unavailable Unavailable Surgery Details Not on file Complications Check Surgery Details section. Procedure Estimated Blood Loss Check Surgery Details section. Procedure Findings Check Surgery Details section. Procedure Specimens Taken Check Surgery Details section.
--- OUTSIDE RECORDS SUMMARY | 2023-07-10 09:27 | XMS_ITS | Encounter Summary ---
Author Name Unknown Organization [facility] Address [address] [place] [address] Care Team Providers Care Bus Mechanic Name Role Phone Seema Reina P.A.-C. Primary Care Provider +1- [phone] Reason for Visit * Reason Onset Date Comments Medical Information 12/03/2022 Encounter Details Date Type Department Care Team (Late st Contact Info) Description 12/03/2022 Nurse Triage Department of Family Medicine, [facility], in [place], [place] [address] [place] [address] Concha Wilkins RYvette [address] [place] [address] Medical Information Social History Tobacco Use Types Packs/Day Years Used Date Smoking Tobacco: Never Passive Smoke Exposure: Never Smokeless Tobacco: Never Alcohol Use Standard Drinks/Week Comments No 0 (1 standard drink = 0.6 oz pur e alcohol) Humiliation, Afraid, Rape, and Kick questionnair e Answer Date Recorded Within the last year, have y ou been afraid of your partner or ex-partner? No 09/11/2022 Within the last year, have y ou been humiliated or emotionally abused in other ways by your partner or ex-partner? No Within the last year, have y ou been kicked, hit, slapped, or otherwise physically hurt by your partner or ex-partner? No 09/11/2022 Within the last year, have y ou been raped or forced to have any kind of sexual activity by your partner or ex-partner? No 09/11/2022 Social Connection and Isolation Panel [NHANES] A nswer Date Recorded In a typical week, how many times do you talk on the phone with family, friends, or neighbors? Patient declined 09/11/2022 How often do you get togethe r with friends or relatives? Patient declined 09/11/2022 How often do you attend rastafarian or methodist serv ices? Patient declined 09/11/2022 Do you belong to any clubs o r organizations such as rastafarian groups, unions, fraternal or athletic groups, or [...] housing, medical care, and heating? Patient declined 09/11/2022 PHQ-2 Answer Date Recorded PHQ-2 Score 0 10/09/2022 [facility] - Occupational Stress Questionnaire Answer Date Recorded [...] have money to get more. Patient declined PRAPARE - Transportation Answer Date Re corded In the past 12 months, has l ack of transportation kept you from medical appointments or from getting medications? Patient declined 10/04/2021 In the past 12 months, has l ack of transportation kept you from meetings, work, or from getting things needed for daily living? Patient declined 10/04/2021 Housing Stability Vital Sign Answer Alonzo e Recorded In the last 12 months, was t here a time when you were not able to pay the mortgage or rent on time? Patient refused 09/12/19 23 Number of Places Lived in the Last Year Not on f ile 09/11/2022 In the last 12 months, was t here a time when you did not have a steady place to sleep or slept in a retirement (including now)? Patient refused 09/11/2022 Depression Answer Date Recor ded PHQ-9 Total Score (max 27) 7 08/20 Nutrition Answer Date Recorded Nutrition: EVOO Fat Source Unknown 08/11 Nutrition: Servings of Fruits/Vegetables per Day Not on file 08/11/2020 Dental Answer Date Recorded Dental: Regular Dentist Unknown 08/11/19 21 Employment Answer Date Recorded Employment status N/A 10/04/2021 Education Answer Date Recorded What is the highest level of school you have completed or the highest degree you have received? Associate degree: occupational, technical, or vocational program 03/12/2019 Sex and Gender Information Value Date Recorded Sex Assigned at Female 09/11/2022 8:42 PM CDT Gender Identity Female 05/06/2017 10:05 AM SOCIAL PROBLEMS SPECIALIST Sexual Orientation Choose not to disclose 2022 8:42 PM CDT documented as of this encounter Miscellaneous Notes * Telephone Encounter - Concha Wilkins R.N. - 12/03/2022 4:52 PM CDT Patient checking on prescription refill for Ozempic. Patient was warm transferred toElyssa Patient Appointment Inclusion Teacher at the clinic for further assistance. documented in this encounter Plan of Treatment Not on file documented as of this encounter Visit Diagnoses Not on filedocumented in this encounter Additional Health Concerns Assessment Noted Time PHQ-9 Depression Total Score: 7 08/20/19 20 11:28 AM SOCIAL PROBLEMS SPECIALIST documented as of this encounter Care Teams Bus Mechanic Relationship Specialty Start Date End Date Seema Reina P.A.-C. [address] [place] [address] PCP - General 09/07/20 documented as of this encounter
--- OUTSIDE RECORDS SUMMARY | 2023-07-10 09:27 | XMS_ITS | Encounter Summary ---
Author Name Unknown Organization [facility] Address [address] [place] [address] Care Team Providers Care Veterinary Manager Name Role Phone Seema Reina P.A.-C. Primary Care Provider +1- [phone] Reason for Visit * Reason Comments Blood Pressure Check Weight Check * Outpatient (Routine) - Authorized Specialty Diagnoses / Procedures Referred By Heriberto t Referred To Contact Seema Reina P.A.-C. [address] [place] [address] [facility] Region Referral ID Status Reason Start Date Expiration Date V isits Requested Visits Authorized [id number] Authorized 12/25/2022 12/24/2025 1 1 Encounter Details Date Type Department Care Team (Late st Contact Info) Description 01/24/2023 1:00 PM CDT Nurse Only Department of Family Medicine, [facility], in [place], [place] [address] [place] [address] Seema Reina P.A.-C. [address] [place] [address] Katherine Jones, L.P.N. Blood Pressure Check; Weight Check Social History Tobacco Use Types Packs/Day Years [...] declined 09/11/2022 How often do you attend mormonism or hinduism serv ices? Patient declined 09/11/2022 Do you belong to any clubs o r organizations such as mormonism groups, unions, fraternal or athletic groups, or [...] Answer Date Recorded PHQ-2 Score 0 10/09/2022 Citizen Of [place] - Occupational Stress Questionnaire Answer Date Recorded [...] your living situation today? I [facility] a [facility] place to live 01/01/2023 Education Answer Date Recorded What is the highest level of school you have completed or the highest degree you have received? Associate degree: occupational, technical, or vocational program 03/12/2019 Sex and Gender Information Value Date Recorded Sex Assigned at Female 09/11/2022 8:42 PM CDT Gender Identity Female 05/06/2017 10:05 AM EMPLOYMENT LAW ATTORNEY Sexual Orientation Choose not to disclose 2022 8:42 PM CDT documented as of this encounter Last Filed Vital Signs Vital Sign Reading Time Taken Comments Blood Pressure 104/73 01/24/2023 12:58 PM CDT Pulse 103 01/24/2023 12:58 PM CDT Temperature - - Respiratory Rate - - Oxygen Saturation - - Inhaled Oxygen Concentration - - Weight 88.2 kg (194 lb 7.1 oz) 01/24/2023 12:58 PM CDT Height - - Body Mass Index 29.99 10/09/2022 9:19 AM CDT documented in this encounter Progress Notes * Katherine Jones L.P.N. - 01/24/2023 1:00 PM CDT Earnestine is seen today for a blood pressure visit as ordered by Seema Reina. Visit was conducted in clinic. Today's blood pressure reading and prior two readings: BP Readings from Last 3 Encounters: 01/24/23 104/73 10/09/22 100/71 09/16/22 111/73 Wt Readings from Last 3 Encounters: 01/24/23 88.2 kg 10/09/22 96 kg 09/16/22 95 kg Patient has stopped taking Vraylar as she thought it was making her gain weight. Medication list was reconciled, and patient is not taking a medication to alter their blood pressure. The patient reports no acute symptoms of hypertension Based on today's readings: The provider will be notified of today's visit and the patient was dismissed documented in this encounter Plan of Treatment Not on file documented as of this encounter Visit Diagnoses Diagnosis Body Mass Index 32.0 To 32.9 Adult- Primary documented in this encounter Additional Health Concerns Assessment Noted Time PHQ-9 Depression Total Score: 7 08/20/19 20 11:28 AM EMPLOYMENT LAW ATTORNEY documented as of this encounter Care Teams Veterinary Manager Relationship Specialty Start Date End Date Seema Reina P.A.-C. [address] [place] [address] PCP - General 09/07/20 documented as of this encounter
--- OUTSIDE RECORDS SUMMARY | 2023-07-10 09:27 | XMS_ITS | Encounter Summary ---
Author Name Unknown Organization [facility] Address [address] [place] [address] Care Team Providers Care Patient Companion Name Role Phone Seema Reina P.A.-C. Primary Care Provider +1- [phone] Encounter Details Date Type Department Care Team (Late st Contact Info) Description 12/09/2022 Clinical Communication Department of Family Medicine, [facility], in [place], [place] [address] [place] [address] Seema Reina P.A.-C. [address] [place] [address] Social History Tobacco Use Types Packs/Day Years [...] How often do you attend baptism or sikhism serv ices? Patient declined 09/11/2022 Do you [...] Answer Date Recorded PHQ-2 Score 0 10/09/2022 [facility] - Occupational Stress [...] your living situation today? I have a [facility] place to live 01/01/2023 Education Answer Date Recorded What is the highest level of school you have completed or the highest degree you have received? Associate degree: occupational, technical, or vocational program 03/12/2019 Sex and Gender Information Value Date Recorded Sex Assigned at Female 09/11/2022 8:42 PM CDT Gender Identity Female 05/06/2017 10:05 AM STRINGED INSTRUMENT REPAIRER Sexual Orientation Choose not to disclose 2022 8:42 PM CDT documented as of this encounter Miscellaneous Notes * Telephone Encounter - Ida Jones, L.P.N. - 12/11/2022 1:35 PM CDT SUBJECTIVE CHIEF COMPLAINT / REASON FOR CALL No chief complaint on file. Information Discussed Spoke with patient and informed her that her insurance will not authorize Ozempic. She will have tocall them to see what they will cover for weight loss. PLAN Disposition/Recommendation: NA Information/Education: patient/caller able to teach back Caller agreeable to plan of care: yes The following references were used: provider Semea Reina PA-C * Telephone Encounter - Seema Reina P.A.-C. - 12/11/2022 10:22 AM CDT Unfortunately, Ozempic is only FDA approved for treatment of diabetes type 2 and is not FDA approved for weight loss. Company is requesting that this medication not be prescribed off-label which has led to insurance companies not covering medication when prescribed for weight loss. documented in this encounter Plan of Treatment Not on file documented as of this encounter Visit Diagnoses Not on filedocumented in this encounter Additional Health Concerns Assessment Noted Time PHQ-9 Depression Total Score: 7 08/20/19 20 11:28 AM STRINGED INSTRUMENT REPAIRER documented as of this encounter Care Teams Patient Companion Relationship Specialty Start Date End Date Seema Reina P.A.-C. [address] [place] [address] PCP - General 09/07/20 documented as of this encounter
--- OUTSIDE RECORDS SUMMARY | 2023-07-10 09:27 | XMS_ITS | Encounter Summary ---
Author Name Unknown Organization [facility] Address [address] [place] [address] Care Team Providers Care Audiometrist Name Role Phone Seema Reina P.A.-C. Primary Care Provider +1- [phone] Encounter Details Date Type Department Care Team (Late st Contact Info) Description 04/21/2023 Clinical Communication Department of Family Medicine, [facility], in [place], [place] [address] [address] Seema Reina P.A.-C. [address] [place] [address] Social History Tobacco Use Types [...] declined 09/11/2022 How often do you attend orthodoxy or islam serv ices? Patient declined 09/11/2022 Do you belong to any clubs o r organizations such as orthodoxy groups, unions, fraternal or athletic groups, or [...] Answer Date Recorded PHQ-2 Score 0 10/09/2022 [facility] - Occupational Stress [...] your living situation today? I have a [facility] place to live 01/01/2023 Education Answer Date Recorded What is the highest level of school you have completed or the highest degree you have received? Associate degree: occupational, technical, or vocational program 03/12/2019 Sex and Gender Information Value Date Recorded Sex Assigned at Female 09/11/2022 8:42 PM CDT Gender Identity Female 05/06/2017 10:05 AM SHANK INSPECTOR Sexual Orientation Choose not to disclose 2022 8:42 PM CDT documented as of this encounter Miscellaneous Notes * Telephone Encounter - Princess Manisha Jenkins - 04/24/2023 11:27 AM CDT Message sent to patients portal documented in this encounter Plan of Treatment Not on file documented as of this encounter Visit Diagnoses Not on filedocumented in this encounter Additional Health Concerns Assessment Noted Time PHQ-9 Depression Total Score: 7 08/20/19 20 11:28 AM SHANK INSPECTOR documented as of this encounter Care Teams Audiometrist Relationship Specialty Start Date End Date Seema Reina P.A.-C. [address] [facility] [place] [phone] PCP - General 09/07/20 documented as of this encounter
--- OUTSIDE RECORDS SUMMARY | 2023-07-10 09:27 | XMS_ITS | Encounter Summary ---
Author Name Unknown Organization [facility] Address [address] [place] [address] Care Team Providers Care Patrol Police Lieutenant Name Role Phone Seema Reina P.A.-C. Primary Care Provider +1- [phone] Encounter Details Date Type Department Care Team (Late st Contact Info) Description 11/27/2022 Clinical Communication Pharmacy Prior Auth [facility] [phone] Brett Magana Social History Tobacco Use Types Packs/Day Years [...] declined 09/11/2022 How often do you attend anabaptism or cheondoism serv ices? Patient declined 09/11/2022 Do you belong to any clubs o r organizations such as anabaptism groups, unions, fraternal or athletic groups, or [...] Answer Date Recorded PHQ-2 Score 0 10/09/2022 [facility] - [...] place to sleep or slept in a half-way (including now)? Patient refused 09/11/2022 Depression Answer [...] CDT Gender Identity Female 05/06/2017 10:05 AM DIE LAY OUT WORKER Sexual Orientation Choose not to disclose 2022 8:42 PM CDT documented as of this encounter Plan of Treatment Not on file documented as of this encounter Visit Diagnoses Not on filedocumented in this encounter Additional Health Concerns Assessment Noted Time PHQ-9 Depression Total Score: 7 08/20/19 20 11:28 AM DIE LAY OUT WORKER documented as of this encounter Care Teams Patrol Police Lieutenant Relationship Specialty Start Date End Date Seema Reina P.A.-C. [address] [place] [phone] PCP - General 09/07/20 documented as of this encounter
--- OUTSIDE RECORDS SUMMARY | 2023-07-10 09:27 | XMS_ITS | Encounter Summary ---
Author Name Unknown Organization [facility] Address [address] [place] [address] Care Team Providers Care Supply Chain Tech Name Role Phone Bishop Carrillo P.A.-C. Primary Care Provider +1- [phone] Reason for Referral * Outpatient (Routine) - Closed Specialty Diagnoses / Procedures Referred By Heriberto t Referred To Contact Family Medicine Bishop Carrillo P.A.-C. [address] [place] [address] [facility] Referral ID Status Reason Start Date Expiration Date Visits Re quested Visits Authorized [id number] Closed 10/09/2022 10/08/2025 1 1 Reason for Visit * Reason Comments Weight Loss * Appointment Request (Routine) - Closed Specialty Diagnoses / Procedures Referred By Heriberto jewell Referred To Contact Family Medicine Referral ID Status Reason Start Date Expiration Date Visits Re quested Visits Authorized [id number] Closed 09/26/2022 09/26/2023 1 1 Encounter Details Date Type Department Care Team (Late st Contact Info) Description 10/09/2022 9:30 AM CDT Office Visit Department of Family Medicine, [facility], in [place], [place] [address] [place] [address] Bishop Carrillo P.A.-C. [address] [place] [address] Counseling Diet (Primary Dx); Body Mass Index 32.0 To 32.9 Adult Social History Tobacco Use Types Packs/Day Years [...] declined 09/11/2022 How often do you attend restorationist or jew serv ices? Patient declined 09/11/2022 Do you belong to any clubs o r organizations such as restorationist groups, unions, fraternal or athletic groups, or [...] Answer Date Recorded PHQ-2 Score 0 10/09/2022 [facility] - Occupational Stress Questionnaire Answer Date [...] declined 10/04/2021 Housing Stability Vital Sign Answer Aolnzo e Recorded In the last 12 months, [...] place to sleep or slept in a skilled nursing (including now)? Patient refused 09/11/2022 Depression Answer [...] CDT Gender Identity Female 05/06/2017 10:05 AM RESPITE COORDINATOR Sexual Orientation Choose not to disclose 2022 8:42 PM CDT documented as of this encounter Last Filed Vital Signs Vital Sign Reading Time Taken Comments Blood Pressure 100/71 10/09/2022 9:19 AM CDT Pulse 90 10/09/2022 9:19 AM CDT Temperature 35.7 ??C (96.2 ??F) 10/09/2022 9 :19 AM CDT Respiratory Rate - - Oxygen Saturation - - Inhaled Oxygen Concentration - - Weight 96 kg (211 lb 10.3 oz) 9:19 AM CDT without shoes Height 171.5 cm (5' 7.52) 10/09/2022 9 :19 AM CDT per EMR Body Mass Index 32.64 10/09/2022 9:19 AM CDT documented in this encounter Patient Instructions * Patient Instructions* Bishop Carrillo P.A.-C. - 10/09/2022 9:30 AM CDT RUFINA1 (injectable medication for weight loss) Donovan Qiu documented in this encounter Progress Notes * Bishop Carrillo P.A.-C. - 10/09/2022 9:30 AM CDT SUBJECTIVE CHIEF COMPLAINT/REASON FOR VISIT Chief Complaint Patient presents with Weight Loss HISTORY OF PRESENT ILLNESS Cortez Mccann is a pleasant 32 y.o. female who presents to the clinic today to discuss weight loss medication. Patient reports difficulty losing weight after the of her last child. She is here today to discuss weight loss medication. Patient has been tracking her diet with My Fitness Pal. She has also met with our dietitian. Patient has been walking for 45 minutes 7 days weekly for exercise. Patient has been prescribed phentermine with Topamax in the past, however had worsening mood symptoms. Her does not want her to take this medication again. REVIEW OF SYSTEMS Pertinent positive ROS are listed above in HPI. Patient Active Problem List Diagnosis Acne Cystic Anemia Microcytic Keratosis Pilaris Migraine Headache Pelvic And Perineal Pain Bleeding Perimenopausal Irritable Bowel Syndrome Without Diarrhea Asthma Mild Intermittent (HCC) Pain Back Lumbar Depression Anxiety Stone Kidney Myalgia Anxiety Body Mass Index 32.0 To 32.9 Adult Anemia Posthemorrhagic Acute (Blood Loss Anemia) Anemia (HCC) ALLERGIES/CONTRAINDICATIONS Allergies Allergen Reactions Epsom Salt [Magnesium Sulfate (Bulk)] Other (see comments) Numb/weak feeling, couldn't walk Iodinated Contrast Media Palpitations Latex Itching Prilosec [Omeprazole] Itching Shellfish Derived Anaphylaxis Zantac [Ranitidine Hcl] Itching CURRENT MEDICATIONS Current Outpatient Medications: albuterol (ACCUNEB) 2.5 mg /3 mL nebulizer solution, Take 3 mL (2.5 mg total) by nebulization 4 (four) times a day as needed for wheezing or shortness of breath., Disp: 120 mL, Rfl: 1 cariprazine (VRAYLAR) 1.5 mg capsule, Take 1.5 mg by mouth daily., Disp: , Rfl: docusate sodium (DOK) 100 mg capsule, Take 1 capsule (100 mg total) by mouth 2 (two) times a day. (Patient taking differently: Take 100 mg by mouth daily.), Disp: 180 capsule, Rfl: 3 lamoTRIgine (LaMICtaL) 100 mg tablet, Take 50 mg by mouth daily. Patient currently on taper off of medication, Disp: , Rfl: OBJECTIVE VITAL SIGNS Vitals: 10/09/22 0919 BP: 100/71 Pulse: 90 Temp: (!) 35.7 ??C PHYSICAL EXAMINATION General: Well-nourished, well-developed 32 y.o. in no apparent distress. Awake, alert, age appropriate. ASSESSMENT / PLAN IMPRESSION/REPORT/PLAN: #1 Counseling Diet #2 Body Mass Index 32.0 To 32.9 Adult -Encouraged diet low in carbs/sugar and high in protein. Recommend patient make lifestyle changes one thing at a time so that they can be maintained long-term. Encouraged increased water consumption goal of 100 oz daily. Encouraged patient to continue tracking her food. Encouraged regular aerobic exercise and at least 2 days a week of strength training. -unfortunately, it does not look like any of the GLP1 approved for weight loss will be covered by patient's insurance. She is previously tried combination of phentermine and Topamax and did lose weight, however she had worsening moods. Could consider use of phentermine alone. Patient will check with her insurance on coverage of GLP1's. All questions have been answered. Patient demonstrated understanding and verbalized agreement with the plan. Total time spent is 25 minutes. Bishop Carrillo P.A.-C. ADDENDUM: Patient's spoke with her insurance company it sounds like Ozempic, Trulicity, Victoza Rybelsus mustbe tried in order for there to be coverage of Mounjaro. Have not previously had good luck with coverage of above medications for patients without diabetes, however will try sending prescription for Ozempic. Recommend following titration: Week 1 through week 4 : 0.25 mg once weekly. Week 5 through week 8: 0.5 mg once weekly. Week 9 through week 12: 1 mg once weekly. Patient should follow-up with me in 3 months for weight check. documented in this encounter Miscellaneous Notes * Addendum Note - Bishop Carrillo P.A.-C. - 10/09/2022 9:30 AM CDTAddended by: BISHOP CARRILLO on: 10/09/2022 06:03 PM Modules accepted: Orders documented in this encounter Plan of Treatment Scheduled Referrals Name Type Priority Associated Diagnoses Orde r Schedule Family Medicine office visit (clinic) Outpatient Referral Routine Expected: 01/08/2023 (Approximate), Expires: 01/09/2024 documented as of this encounter Visit Diagnoses Diagnosis Counseling Diet- Primary Body Mass Index 32.0 To 32.9 Adult documented in this encounter Additional Health Concerns Assessment Noted Time PHQ-9 Depression Total Score: 7 08/20/19 20 11:28 AM RESPITE COORDINATOR documented as of this encounter Care Teams Supply Chain Tech Relationship Specialty Start Date End Date Bishop Carrillo P.A.-C. [address] [phone] PCP - General 09/07/20 documented as of this encounter
--- OUTSIDE RECORDS SUMMARY | 2023-07-10 09:27 | XMS_ITS | Encounter Summary ---
Author Name Unknown Organization [facility] Address [address] [place] [address] Care Team Providers Care Special Education Administrator Name Role Phone Seema Reina P.A.-C. Primary Care Provider [phone]- [phone] Reason for Referral * Outpatient (Routine) - Closed Specialty Diagnoses / Procedures Referred By Contac t Referred To Contact Diagnoses Prolonged QT Interval Procedures Echo Transthoracic (TTE) Seema Reina P.A.-C. [address] [place] [address] [facility] Referral ID Status Reason Start Date Expiration Date Visits Re quested Visits Authorized [id number] Closed 09/10/2022 11/14/2023 1 1 Reason for Visit * Outpatient (Routine) - Closed Specialty Diagnoses / Procedures Referred By Heriberto jewell Referred To Contact Diagnoses Prolonged QT Interval Procedures Echo Transthoracic (TTE) Seema Reina P.A.-C. [address] [place] [phone] [facility] Referral ID Status Reason Start Date Expiration Date Visits Re quested Visits Authorized [id number] Closed 09/10/2022 11/14/2023 1 1 Encounter Details Date Type Department Care Team (Latest Contact Info) Description 09/16/2022 8:22 AM CDT - 09/16/2022 1:26 PM CDT Hospital Encounter Department of Cardiovascular Diseases in [place], [place] [address] [place] [address] Seema Reina P.A.-C. [address] [place] [phone] Prolonged QT Interval Discharge Disposition: Home or Self Care Social History Tobacco Use Types Packs/Day Years Used Date Smoking Tobacco: Never Smokeless Tobacco: Never Alcohol Use Standard [...] declined 09/11/2022 How often do you attend baptist or lutheran serv ices? Patient declined 09/11/2022 Do you belong to any clubs o r organizations such as baptist groups, unions, fraternal or athletic groups, or [...] 09/11/2022 PHQ-2 Answer Date Recorded PHQ-2 Score 1 08/20/2019 [facility] - Occupational [...] place to sleep or slept in a snf (including now)? 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 120 mL 1 05/08/2019 06/25/2024 docusate sodium (DOK) 100 mg capsule Take 1 capsule (100 mg total) by mouth 2 (two) times a day. 180 capsule 3 09/09/2017 cariprazine (VRAYLAR) 1.5 mg capsule Take 1.5 mg by mouth daily. 0 01/24/2023 lamoTRIgine (LaMICtaL) 100 mg tablet Take 50 mg by mouth daily. Patient currently on taper off of medication 0 09/27/2021 01/08/2023 documented as of this encounter Plan of Treatment Not on file documented as of this encounter Procedures Procedure Name Priority Date/Time Associated Diagnosis Comments (TTE) 2D ECHO DOPPLER COLOR Routine 09/16/2022 9:45 AM CDT Prolonged QT Interval documented in this encounter Results * (TTE) 2D ECHO DOPPLER COLOR (09/16/2022 9:45 AM CDT) Ejection Fraction 64 MC CV EIMS Mid-Ascending Aorta 27 MC CV EIMS LV Mass Index 81 MC CV EIMS LV End-Diastolic Diameter 52 MC CV EIMS LV End-Systolic Diameter 33 MC CV EIMS MV E Velocity 0.7 MC CV EIMS MV A Velocity 0.6 MC CV EIMS MV E/A 1.17 MC CV EIMS MV e' Velocity Medial 0.08 MC CV EIMS MV e' Velocity Lateral 0.09 MC CV EIMS MV E/e' Medial 8.8 MC CV EIMS MV E/e' Lateral 7.8 MC CV EIMS LV Interventricular Septal Wall Thickness 9 MC CV EIMS LV Posterior Wall Thickness 9 MC CV EIMS LV Relative Wall Thickness 35 MC CV EIMS TR Vmax 2.2 MC CV EIMS RA Pressure 5 MC CV EIMS RV Systolic Pressure 24 MC CV EIMS LA Volume Index 19 MC CV EIMS Anatomical Region Laterality Modality Echocardiography 09/16/2022 8:50 AM CDT Impressions 09/16/2022 9:47 AM CDT LEFT VENTRICLE:Normal left ventricular chamber size. Normal left ventricular wall thickness. Calculated 2-D linear left ventricular ejection fraction 64%. No regional wall motion abnormalities. Normal left ventricular filling pressure. RIGHT VENTRICLE:Normal right ventricular chamber size. Normal right ventricular systolic function. Estimated right ventricular systolic pressure 24 mmHg (systolic blood pressure 124 mmHg). ATRIA:Normal left atrial size. Left atrial volume index 19 ml/m2. Normal right atrial size. CARDIAC VALVES:Trileaflet aortic valve. Normal aortic valve. No aortic valve regurgitation. Normal mitral valve. Trivial mitral valve regurgitation. Normal pulmonary valve. No pulmonary valve regurgitation. Normal tricuspid valve. Mild tricuspid valve regurgitation. OTHER ECHO FINDINGS:Normal inferior vena cava size with normal inspiratory collapse (>50%). Normal mid ascending aorta diameter of 27 mm. Upper limit of normal of the mid ascending aorta, for age, sex and BSA is 34 mm. No abdominal aortic aneurysm. Normal abdominal aorta Doppler flow pattern. Imaging inadequate for detection of atrial level shunt by color flow imaging. No intracardiac mass or thrombus, but the left atrial appendage cannot be visualized adequately with transthoracic echo to exclude thrombus in this location. No ??pericardial effusion. For the complete report, see the Order-Level Documents. Narrative 09/16/2022 9:47 AM CDT For the complete report, see the Order-Level Documents. Hemodynamics Blood Pressure: 124 / 82 mmHg Final Impressions 1. Normal left ventricular chamber size. Calculated ejection fraction 64%. No regional wall motion abnormalities. 2. Normal left ventricular filling pressure. 3. Normal right ventricular chamber size and systolic function. 4. Estimated right ventricular systolic pressure 24 mmHg (systolic blood pressure 124 mmHg). 5. Normal sized atria. 6. Normal cardiac valves. 7. Normal inferior vena cava size with normal inspiratory collapse (>50%). 8. No ??pericardial effusion. Procedure Note Angie Andres M.D. - 09/16/2022 For the complete report, see the Order-Level Documents. Hemodynamics Blood Pressure: 124 / 82 mmHg Final Impressions 1. Normal left ventricular chamber size. Calculated ejection fraction 64%.No regional wall motion abnormalities. 2. Normal left ventricular filling pressure. 3. Normal right ventricular chamber size and systolic function. 4. Estimated right ventricular systolic pressure 24 mmHg (systolic bloodpressure 124 mmHg). 5. Normal sized atria. 6. Normal cardiac valves. 7. Normal inferior vena cava size with normal inspiratory collapse(>50%). 8. No pericardial effusion. Findings LEFT VENTRICLE:Normal left ventricular chamber size. Normal leftventricular wall thickness. Calculated 2-D linear left ventricularejection fraction 64%. No regional wall motion abnormalities. Normal leftventricular filling pressure. RIGHT VENTRICLE:Normal right ventricular chamber size. Normal rightventricular systolic function. Estimated right ventricular systolicpressure 24 mmHg (systolic blood pressure 124 mmHg). ATRIA:Normal left atrial size. Left atrial volume index 19 ml/m2. Normalright atrial size. CARDIAC VALVES:Trileaflet aortic valve. Normal aortic valve. No aorticvalve regurgitation. Normal mitral valve. Trivial mitral valveregurgitation. Normal pulmonary valve. No pulmonary valve regurgitation.Normal tricuspid valve. Mild tricuspid valve regurgitation. OTHER ECHO FINDINGS:Normal inferior vena cava size with normal inspiratorycollapse (>50%). Normal mid ascending aorta diameter of 27 mm. Upper limitof normal of the mid ascending aorta, for age, sex and BSA is 34 mm. Noabdominal aortic aneurysm. Normal abdominal aorta Doppler flow pattern.Imaging inadequate for detection of atrial level shunt by color flowimaging. No intracardiac mass or thrombus, but the left atrial appendagecannot be visualized adequately with transthoracic echo to excludethrombus in this location. No pericardial effusion. For the complete report, see the Order-Level Documents. Seema Reina P.A.-C. CV ECHO PROCEDURES documented in this encounter Visit Diagnoses Diagnosis Prolonged QT Interval documented in this encounter Additional Health Concerns Assessment Noted Time PHQ-9 Depression Total Score: 7 08/20/19 20 11:28 AM VENDOR SPECIALIST documented as of this encounter Care Teams Special Education Administrator Relationship Specialty Start Date End Date Seema Reina P.A.-C. [address] [phone] PCP - General 09/07/20 documented as of this encounter
--- OUTSIDE RECORDS SUMMARY | 2023-07-10 09:27 | XMS_ITS | Encounter Summary ---
Author Name Unknown Organization [facility] Address [address] [place] [address] Care Team Providers Care Transitional Living Specialist Name Role Phone Seema Reina P.A.-C. Primary Care Provider [phone]- [phone] Encounter Details Date Type Department Care Team (Late st Contact Info) Description 12/08/2022 Orders Only Department of Family Medicine, [facility], in [place], [place] [address] [address] Joel Duque M.D. [address] [place] [address] Social History Tobacco Use Types [...] declined 09/11/2022 How often do you attend caodaism or jainism serv ices? Patient declined 09/11/2022 Do you belong to any clubs o r organizations such as caodaism groups, unions, fraternal or athletic groups, or [...] Answer Date Recorded PHQ-2 Score 0 10/09/2022 [facility] of [...] place to sleep or slept in a long-term (including now)? 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 [address], [place] [address] PCP - General 09/07/20 documented as of this encounter
--- OUTSIDE RECORDS SUMMARY | 2023-07-10 09:27 | XMS_ITS | Encounter Summary ---
Author Name Unknown Organization [facility] Address [address] [place] [address] Care Team Providers Care Emergency Department Technician Name Role Phone Seema Reina P.A.-C. Primary Care Provider +1- [phone] Reason for Visit * Reason Onset Date Comments Abdominal Pain 05/16/2023 Encounter Details Date Type Department Care Team (Late st Contact Info) Description 05/16/2023 Nurse Triage Department of Family Medicine, [facility], in [place], [place] [address] [place] [address] Lynn Mckeon RYvette [address] [place] [address] Abdominal Pain Social History Tobacco Use Types Packs/Day Years [...] declined 09/11/2022 How often do you attend cheondoism or taoism serv ices? Patient declined 09/11/2022 Do you belong to any clubs o r organizations such as cheondoism groups, unions, fraternal or athletic groups, or [...] Answer Date Recorded PHQ-2 Score 0 10/09/2022 [facility] - Occupational [...] your living situation today? I have a [facility] place to live 01/01/2023 Education Answer Date Recorded What is the highest level of school you have completed or the highest degree you have received? 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 female calling regarding Abdominal Pain. Assessment Concern: Patient reports she left lower abdominal pain becomes worse when she urinates. She is currently rating her pain an 8/10. Patient has had kidney stones in the past and this is the same pain. Present for: 24 hours Calling to request: An appointment The recommended disposition is Go to ED Now. Reason for Disposition [1] SEVERE pain (e.g., excruciating) AND [2] present > 1 hour Protocols used: Abdominal Pain - [id number] Care Advice Patient/Caregiver understands and will follow care advice?: Yes, able to teach back GO TO ED NOW: * You need to be seen in the Emergency Department. * Go to the ED at nearest Hospital. * Leave now. Drive carefully. LINING SUPERVISOR documented in this encounter Plan of Treatment Not on file documented as of this encounter Visit Diagnoses Not on filedocumented in this encounter Additional Health Concerns Assessment Noted Time PHQ-9 Depression Total Score: 7 08/20/19 20 11:28 AM POT LINING SUPERVISOR documented as of this encounter Care Teams Emergency Department Technician Relationship Specialty Start Date End Date Seema Reina P.A.-C. [address] [place] [phone] PCP - General 09/07/20 documented as of this encounter
--- OUTSIDE RECORDS SUMMARY | 2023-07-10 09:27 | XMS_ITS | Encounter Summary ---
Author Name Unknown Organization [facility] Address [address] [place] [address] Care Team Providers Care Fire Manager Name Role Phone Seema Reina P.A.-C. Primary Care Provider [phone]- [phone] Reason for Referral * Outpatient (Routine) - Closed Specialty Diagnoses / Procedures Referred By Contac t Referred To Contact Diagnoses Prolonged QT Interval Procedures Long QT Syndrome Gene Panel NC MOPATH PROCEDURE LEVEL 4 NC MOPATH PROCEDURE LEVEL 7 NC MOPATH PROCEDURE LEVEL 7 NC MOPATH PROCEDURE LEVEL 8 NC UNLISTED PROC Derrick Mckenzie M.D., Ph.D. [address] [place] [address] [facility] Referral ID Status Reason Start Date Expiration Date Visits Re quested Visits Authorized [id number] Closed 09/16/2022 10/17/2022 1 1 Reason for Visit * Outpatient (Routine) - Closed Specialty Diagnoses / Procedures Referred By Contac t Referred To Contact Diagnoses Prolonged QT Interval Procedures Long QT Syndrome Gene Panel NC MOPATH PROCEDURE LEVEL 4 NC MOPATH PROCEDURE LEVEL 7 NC MOPATH PROCEDURE LEVEL 7 NC MOPATH PROCEDURE LEVEL 8 NC UNLISTED PROC Derrick Mckenzie M.D., Ph.D. [address] [place] [address] [facility] Referral ID Status Reason Start Date Expiration Date Visits Re quested Visits Authorized [id number] Closed 09/16/2022 10/17/2022 1 1 Encounter Details Date Type Department Care Team (Latest Contact Info) Description 09/16/2022 1:27 PM CDT - 09/16/2022 11:59 PM CDT Hospital Encounter Department of Laboratory Medicine and Pathology, [facility] in [place], [place] [address] [place] [phone] Derrick Ríos M.D., Ph.D. [address] [place] [phone] Prolonged QT Interval Discharge Disposition: Home or [...] declined 09/11/2022 How often do you attend sabianism or scientologist serv ices? Patient declined 09/11/2022 Do you belong to any clubs o r organizations such as sabianism groups, unions, fraternal or athletic groups, or [...] Answer Date Recorded PHQ-2 Score 1 08/20/2019 [facility] - Occupational [...] place to sleep or slept in a jail (including now)? 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 Sexual Orientation Choose not to disclose 2022 [...] Procedure Name Priority Date/Time Associated Diagnosis Comments LONG QT SYNDROME GENE PANEL Routine 09/16/2022 1:34 PM CDT Prolonged QT Interval documented in this encounter Results * Long QT Syndrome Gene Panel (09/16/2022 1:34 PM CDT) Test Description Evaluation of 10 genes associated with long QT syndrome (LQTS) 10/15/2022 7:35 PM CDT DTL Specimen WB Whole Blood 10/15/2022 7:35 PM CDT DTL Genes Analyzed PRGXU9P, CALM1, CALM2, CALM3, KCNE1, KCNH2, KCNJ2, KCNQ1, SCN5A and TRDN 10/15/2022 7:35 PM CDT DTL Disclaimer Clinical Correlations An online research opportunity called [employer] ([employer]) , a project of [employer], is available for the recipient of this genetic test. This patient registry collects de-identified genetic and health information to advance the knowledge of genetic variants. [facility] is a collaborator of [employer]. This may not be applicable for all tests. If testing was performed because of a clinically significant family history it is often useful to first test an affected family member. Detection of a reportable variant(s) in an affected family member would allow for more informative testing of at risk individuals. To discuss the availability of further testing options or for assistance in the interpretation of these results, [facility] genetic counselors can be contacted at . Technical Limitations Next generation sequencing may not detect all types of genomic variants. In rare cases, false negative or false positive results may occur. The depth of coverage may be variable for some target regions, but assay performance below the minimum acceptable criteria or for failed regions will be noted. Given these limitations, negative results do not rule out the diagnosis of a genetic disorder. If a specific clinical disorder is suspected, evaluation by alternative methods can be considered. There may be regions of genes that cannot be effectively evaluated for sequencing or deletion and duplication analysis as a result of technical limitations of the assay, including regions of homology, high GC content, and repetitive sequences. Confirmation of select reportable variants was performed by alternate methodologies based on internal laboratory criteria. Additionally, low level mosaic variants may not be detected. This test is not designed to differentiate between somatic and germline variants. If there is a possibility that any detected variant is somatic, additional testing may be necessary to clarify the significance of results. Genes may be added or removed based on updated clinical relevance. Please refer to the Targeted Genes and Methodology Details for the Long QT Syndrome Gene Panel in the Special Instructions section of the Test Catalog for the most up to date list of genes included in this test. Reclassification of Variants Policy See www.[employer] (TEST ID LQTSG) for information regarding the laboratory's policy for reclassification of variants. Variant Evaluation Variant curation is performed using published ACMG-AMP recommendations as a guideline. Other gene-specific guidelines may also be considered. Variants classified as benign or likely benign are not reported. Results from in silico evaluation tools may twisting frame changer time and should be interpreted with caution and professional clinical judgment. TEST CLASSIFICATION This test was developed and its performance characteristics determined by [facility] in a manner consistent with CLIA requirements. This test has not been cleared or approved by the U.S. Food and Drug Administration. 10/15/2022 7:35 PM CDT DTL Released By Skyler Hudson M.D. 10/15/2022 7:35 PM CDT DTL Result Summary Negative 10/15/2022 7:35 PM CDT DTL Result No reportable variants were detected. 10/15/2022 7:35 PM CDT DTL Method Next generation sequencing (NGS) and/or Syeda sequencing was performed to test for the presence of variants in coding regions and intron/exon boundaries of the genes analyzed, as well as some other regions that have known pathogenic variants. NGS and/or a polymerase chain reaction (PCR)-based quantitative method was performed to test for the presence of deletions and duplications in the genes analyzed. The human genome reference GRCh37/hg19 build was used for sequence read alignment. At least 99% of the bases are covered at a read depth over 30X. Sensitivity is estimated at above 99% for single nucleotide variants, above 94% for indels less than 40 base pairs (bp), above 95% for deletions up to 75 bp and insertions up to 47 bp. See the Genes Analyzed field for a list of genes tested. There may be regions of genes that cannot be effectively evaluated for sequencing or deletion and duplication analysis as a result of technical limitations of the assay, including regions of homology, high GC content, and repetitive sequences. Confirmation of select reportable variants was performed by alternate methodologies based on internal laboratory criteria. See www.[employer] (TEST ID LQTSG) for details regarding genes with regions not routinely covered. 10/15/2022 7:35 PM CDT DTL Interpretation This result decreases the likelihood but does not rule out the involvement of the genes evaluated in this panel. Individuals may have a pathogenic variant in one of the interrogated genes that is not detectable by the methods utilized. Additionally, the clinical phenotype that is observed in this individual and/or family may be due to a pathogenic variant or variants in another gene not targeted by this test. This result should be interpreted in the context of clinical findings, family history, and other laboratory testing. A genetic consultation may be of benefit. 10/15/2022 7:35 PM CDT DTL Blood (Blood, Peripheral Draw) 09/16/2022 1:34 PM CDT 09/16/2022 2:54 PM CDT Derrick Ríos M.D., Ph.D. LAB GENETI C TESTING [facility] [address] [place] [address], [facility] DTL [address] [place] [address] documented in this encounter Visit Diagnoses Diagnosis Prolonged QT Interval documented in this encounter Additional Health Concerns Assessment Noted Time PHQ-9 Depression Total Score: 7 08/20/19 20 11:28 AM WINCH STRIPPER documented as of this encounter Care Teams Fire Manager Relationship Specialty Start Date End Date Seema Reina P.A.-C. [address] [phone] PCP - General 09/07/20 documented as of this encounter
--- OUTSIDE RECORDS SUMMARY | 2023-07-10 09:27 | XMS_ITS | Encounter Summary ---
Author Name Unknown Organization [facility] Address [address] [place] [address] Care Team Providers Care Instrument Repairer Helper Name Role Phone Seema Reian P.A.-C. Primary Care Provider +1- [phone] Reason for Referral * Outpatient (Routine) - Authorized Specialty Diagnoses / Procedures Referred By Heriberto t Referred To Contact Diagnoses Postural Orthostatic Tachycardia Syndrome Procedures Autonomic reflex Screen Seema Reina P.A.-C. [address] [place] [address] [facility] Referral ID Status Reason Start Date Expiration Date V isits Requested Visits Authorized [id number] Authorized 01/08/2023 01/08/2024 1 1 Reason for Visit * Reason Comments Follow-up F/u POTS * Outpatient (Routine) - Closed Specialty Diagnoses / Procedures Referred By Contashish jewell Referred To Contact Family Medicine Seema Reina P.A.-C. [address] [place] [address] [facility] Referral ID Status Reason Start Date Expiration Date Visits Re quested Visits Authorized [id number] Closed 10/09/2022 10/08/2025 1 1 Encounter Details Date Type Department Care Team (Late st Contact Info) Description 01/08/2023 12:00 PM CDT Telemedicine Department of Family Medicine, [facility], in [place], [place] [address] [address] Seema Reina P.A.-C. [address] [place] [address] Postural Orthostatic Tachycardia Syndrome (Primary Dx) Social History Tobacco Use Types Packs/Day Years [...] declined 09/11/2022 How often do you attend roman catholic or sikh serv ices? Patient declined 09/11/2022 Do you belong to any clubs o r organizations such as roman catholic groups, unions, fraternal or athletic groups, or [...] Answer Date Recorded PHQ-2 Score 0 10/09/2022 [facility] - Occupational [...] your living situation today? I have a [facility] place to live 01/01/2023 Education Answer Date Recorded What is the highest level of school you have completed or the highest degree you have received? 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 - 01/08/2023 12:00 PM CDT SUBJECTIVE VIDEO VISIT DATE OF ENCOUNTER: 01/08/2023 CHIEF COMPLAINT / REASON FOR VIDEO VISIT Follow-up (F/u POTS) HISTORY OF PRESENT ILLNESS Earnestine Ulloa is a 32 y.o. female who was contacted today via video discuss treatment POTS. Patient identity was verified by myself. Patient was given diagnosis of POTS by Cardiology given spikes in heart rate seen on Holter monitor. It was recommended that she follow-up with PCP to discuss treatment. She states that she has been trying to exercise and eat better. She has been struggling with lightheadedness and dizziness as well as symptoms of heart racing which tend to be most bothersome when she stands upright for prolongedperiods of time. She states most recently she was out fishing with her children and had to sit downmany times. The following portions of the patient's history were reviewed and updated as appropriate: allergies, current medications, family history, medical history, social history, surgical history and problemlist. MEDICATIONS Reviewed and updated. Outpatient Medications Prior to Visit Medication Sig Dispense Refill cariprazine (VRAYLAR) 1.5 mg capsule Take 1.5 mg by mouth daily. docusate sodium (DOK) 100 mg capsule Take 1 capsule (100 mg total) by mouth 2 (two) times a day. (Patient taking differently: Take 100 mg by mouth daily.) 180 capsule 3 phentermine (ADIPEX-P) 37.5 mg tablet Take 1 tablet (37.5 mg total) by mouth every morning before breakfast. 30 tablet 0 albuterol (ACCUNEB) 2.5 mg /3 mL nebulizer solution Take 3 mL (2.5 mg total) by nebulization 4 (four) times a day as needed for wheezing or shortness of breath. 120 mL 1 lamoTRIgine (LaMICtaL) 100 mg tablet Take 50 mg by mouth daily. Patient currently on taper off of medication No facility-administered medications prior to visit. OBJECTIVE VITAL SIGNS There were no vitals taken for this visit. PHYSICAL EXAMINATION LIMITED GIVEN THAT THIS IS A VIDEO ENCOUNTER Pertinent findings able to be determined with the technological tools available are listed below Constitutional Appearance: Normal appearance. She is normal weight. HENT Head: Normocephalic and atraumatic. Pulmonary Effort: Pulmonary effort is normal. No respiratory distress. Neurological General: No focal deficit present. Mental Status: She is alert. Psychiatric Behavior: Behavior normal. DIAGNOSTICS Reviewed in the EHR. ASSESSMENT/PLAN #1 Postural Orthostatic Tachycardia Syndrome -Will further evaluate with autonomic reflex screen. Discussed lifestyle modifications for treatment of POTS. Recommend consumption of at least 3 L of water daily. Two 8 oz glasses of cold water should be consumed prior to prolonged standing or other circumstances that produce symptoms. Recommend daily salt intake of 10-20 g. Patient may consider supplementation with salt tablets 0.5 g to 1 g each. Patient should participate in regular aerobic exercise. Patient should aim to remain upright as much as possible. Postural counter maneuvers discussed. If symptoms fail to improve or worsen despitelifestyle modifications consider follow-up with P[facility]S Clinic in [place]. Consult conducted via real-time audio/video technology by Seema Reina PA-C in [facility] to thepatient in home. Total time spent is 20 minutes. documented in this encounter Plan of Treatment Scheduled Orders Name Type Priority Associated Diagnoses Orde r Schedule Autonomic reflex Screen Neurology Routine Postural Orthostatic Tachycardia Syndrome Expected: 01/08/2023 (Approximate), Expires: 04/10/2024 documented as of this encounter Visit Diagnoses Diagnosis Postural Orthostatic Tachycardia Syndrome- Primary documented in this encounter Additional Health Concerns Assessment Noted Time PHQ-9 Depression Total Score: 7 08/20/19 20 11:28 AM CHRISTMAS TREE FARM WORKER documented as of this encounter Care Teams Instrument Repairer Helper Relationship Specialty Start Date End Date Seema Reina P.A.-C. [address] [place] [phone] PCP - General 09/07/20 documented as of this encounter
--- OUTSIDE RECORDS SUMMARY | 2023-07-10 09:27 | XMS_ITS | Encounter Summary ---
Author Name Unknown Organization [facility] Address [address] [place] [address] Care Team Providers Care Counter Supply Worker Name Role Phone Seema Reina.A.-CRiley Primary Care Provider +1- [phone] Reason for Visit * Reason Comments Med Change Request Encounter Details Date Type Department Care Team (Late st Contact Info) Description 10/09/2022 Refill Department of Family Medicine, [facility], in [place], [place] [address], [place] [address] Seema Reina P.A.-CRiley [address] [address] Med Change Request Social History Tobacco Use Types Packs/Day Years [...] declined 09/11/2022 How often do you attend bahai or sabianist serv ices? Patient declined 09/11/2022 Do you belong to any clubs o r organizations such as bahai groups, unions, fraternal or athletic groups, or [...] Answer Date Recorded PHQ-2 Score 0 10/09/2022 [facility] - Occupational [...] place to sleep or slept in a fdc (including now)? 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 - 10/10/2022 2:49 PM CDT Your requested refill has been sent to your pharmacy. documented in this encounter Plan of Treatment Not on file documented as of this encounter Visit Diagnoses Not on filedocumented in this encounter Additional Health Concerns Assessment Noted Time PHQ-9 Depression Total Score: 7 08/20/19 20 11:28 AM DIVERSIFIED CROPS FARMER documented as of this encounter Care Teams Counter Supply Worker Relationship Specialty Start Date End Date Seema Reina P.A.-C. [address] [place] [address] PCP - General 09/07/20 documented as of this encounter
--- OUTSIDE RECORDS SUMMARY | 2023-07-10 09:27 | XMS_ITS | Encounter Summary ---
Author Name Unknown Organization [facility] Address [address] [place] [address] Care Team Providers Care Hemp Fiber Taker Off Name Role Phone Seema Reina P.A.-C. Primary Care Provider +1- [phone] Reason for Referral * Outpatient (Routine) - Authorized Specialty Diagnoses / Procedures Referred By Contashish t Referred To Contact Seema Reina P.A.-C. [address] [place] [address] [facility] Referral ID Status Reason Start Date Expiration Date V isits Requested Visits Authorized [id number] Authorized 02/27/2023 02/26/2026 1 1 Reason for Visit * Reason Onset Date Comments Med Refill 02/27/2023 Encounter Details Date Type Department Care Team (Late st Contact Info) Description 02/27/2023 Clinical Communication Department of Family Medicine, [facility], in [place], [place] [address], [place] [address] Seema Reina P.A.-C. [address], [place] [address] Med Refill Social History Tobacco Use Types Packs/Day Years [...] declined 09/11/2022 How often do you attend shinto or latter-day serv ices? Patient declined 09/11/2022 Do you belong to any clubs o r organizations such as shinto groups, unions, fraternal or athletic groups, or [...] Answer Date Recorded PHQ-2 Score 0 10/09/2022 [facility] - Occupational Stress Questionnaire Answer Date Recorded [...] your living situation today? I have a [facility] place to live 01/01/2023 Education Answer Date Recorded What is the highest level of school you have completed or the highest degree you have received? 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 - 02/27/2023 10:19 AM CDT Patient presents to [facility] to have their BP and weight checked today for refill of phentermine. Today's readings: 88.2 kg and 104/73 Previous BP 104/73 and wt 88.2 kg on 01/24/23. Patient would like their refill sent to [facility] pharmacy in [place]. documented in this encounter Plan of Treatment Scheduled Referrals Name Type Priority Associated Diagnoses Orde r Schedule Primary Care nurse visit (clinic) - [facility] Region; BP check, Weight check (adult); BP check only (AMMONIUM HYDROXIDE OPERATOR) Outpatient Referral Routine Expected: 03/29/2023 (Approximate), Expires: 05/29/2024 documented as of this encounter Visit Diagnoses Diagnosis Body Mass Index 32.0 To 32.9 Adult documented in this encounter Additional Health Concerns Assessment Noted Time PHQ-9 Depression Total Score: 7 08/20/19 20 11:28 AM HOSPITAL SALES REPRESENTATIVE documented as of this encounter Care Teams Hemp Fiber Taker Off Relationship Specialty Start Date End Date Seema Reina P.A.-C. [address] [place] [address] PCP - General 09/07/20 documented as of this encounter
--- OUTSIDE RECORDS SUMMARY | 2023-07-10 09:27 | XMS_ITS | Encounter Summary ---
Author Name Unknown Organization [facility] Address [address] [place] [address] Care Team Providers Care Fabricator Foam Rubber Name Role Phone Seema Reina P.A.-C. Primary Care Provider +1- [phone] Reason for Visit * Reason Comments Nurse Visit BP & weight check fo r phentermine refill * Outpatient (Routine) - Authorized Specialty Diagnoses / Procedures Referred By Heriberto t Referred To Contact Seema Reina P.A.-C. [address] [place] [address] [facility] Region Referral ID Status Reason Start Date Expiration Date V isits Requested Visits Authorized [id number] Authorized 01/27/2023 01/26/2026 1 1 Encounter Details Date Type Department Care Team (Late st Contact Info) Description 02/27/2023 10:00 AM CDT Nurse Only Department of Family Medicine, [facility], in [place], [place] [address] [place] [address] Tomasa Mijares L.P.NRiley [address] [place] [phone] Nurse Visit (BP & weight check for phentermine refill) Social History Tobacco Use Types Packs/Day Years [...] declined 09/11/2022 How often do you attend christianity or yazidi serv ices? Patient declined 09/11/2022 Do you belong to any clubs o r organizations such as christianity groups, unions, fraternal or athletic groups, or [...] Date Recorded PHQ-2 Score 0 10/09/2022 [facility] [...] your living situation today? I have a [facility] place to live 01/01/2023 Education Answer Date Recorded What is the highest level of school you have completed or the highest degree you have received? 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 - 02/27/2023 10:00 AM CDT Patient presents to [facility] to have their BP and weight checked today for refill of phentermine. Today's readings: 88.2 kg and 104/73 Previous BP 104/73 and wt 88.2 kg on 01/24/23. Patient would like their refill sent to [facility] pharmacy in [place]. documented in this encounter Plan of Treatment Not on file documented as of this encounter Visit Diagnoses Diagnosis Body Mass Index 32.0 To 32.9 Adult- Primary documented in this encounter Additional Health Concerns Assessment Noted Time PHQ-9 Depression Total Score: 7 08/20/19 20 11:28 AM UNIT TRUST MANAGER documented as of this encounter Care Teams Fabricator Foam Rubber Relationship Specialty Start Date End Date Seema Reina P.A.-C. [address] [phone] PCP - General 09/07/20 documented as of this encounter
--- OUTSIDE RECORDS SUMMARY | 2023-07-10 09:27 | XMS_ITS | Encounter Summary ---
Author Name Unknown Organization [facility] Address [address] [place] [address] Care Team Providers Care Interline Clerk Name Role Phone Seema Reina P.A.-C. Primary Care Provider +1- [phone] Reason for Referral * Outpatient (Routine) - Authorized Specialty Diagnoses / Procedures Referred By Contashish t Referred To Contact Seema eRina P.A.-C. [address] [place] [address] [facility] Region Referral ID Status Reason Start Date Expiration Date V isits Requested Visits Authorized [id number] Authorized 01/27/2023 01/26/2026 1 1 Reason for Visit * Reason Onset Date Comments Blood Pressure Check 01/24/2023 Weight Check 01/24/2023 Encounter Details Date Type Department Care Team (Latest Contact Info) Description 01/24/2023 Clinical Communication Department of Family Medicine, [facility], in [place], [place] [address] [place] [address] Seema Reina P.A.-C. [address] [place] [address] Blood Pressure Check; Weight Check Social History [...] declined 09/11/2022 How often do you attend buddhist or yarsani serv ices? Patient declined 09/11/2022 Do you belong to any clubs o r organizations such as buddhist groups, unions, fraternal or athletic groups, or [...] Answer Date Recorded PHQ-2 Score 0 10/09/2022 [facility] - Occupational Stress Questionnaire Answer [...] your living situation today? I have a [facility] place to live 01/01/2023 Education Answer Date Recorded What is the highest level of school you have completed or the highest degree you have received? 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 - 01/24/2023 1:01 PM CDT Earnestine is seen today for a blood pressure visit as ordered by eSema Reina. Visit was conducted in clinic. Today's [...] Schedule Primary Care nurse visit (clinic) - [facility] Region; BP check, Weight check (adult); BP check only (LICENSED DISPENSING OPTICIAN) Outpatient Referral Routine Expected: 02/27/2023 (Approximate), Expires: 04/29/2024 documented as of this encounter Visit Diagnoses Diagnosis Body Mass Index 32.0 To 32.9 Adult- Primary documented in this encounter Additional Health Concerns Assessment Noted Time PHQ-9 Depression Total Score: 7 08/20/19 20 11:28 AM TURFGRASS TECHNICIAN documented as of this encounter Care Teams Interline Clerk Relationship Specialty Start Date End Date Seema Reina P.A.-C. [address] [place] [phone] PCP - General 09/07/20 documented as of this encounter
--- OUTSIDE RECORDS SUMMARY | 2023-07-10 09:28 | XMS_ITS | Encounter Summary ---
Author Name Unknown Organization [facility] Address [address] [place] [address] Care Team Providers Care Receiving Associate Name Role Phone Seema Reina.A.-CRiley Primary Care Provider [phone] Reason for Referral * Outpatient (Routine) - Closed Specialty Diagnoses / Procedures Referred By Contac t Referred To Contact Diagnoses Prolonged QT Interval Procedures Long QT Syndrome Gene Panel PA MOPATH PROCEDURE LEVEL 4 PA MOPATH PROCEDURE LEVEL 7 PA MOPATH PROCEDURE LEVEL 7 PA MOPATH PROCEDURE LEVEL 8 PA UNLISTED PROC MOPATH Derrick Ríos M.D., Ph.D. [address] [place] [address] [facility] Referral ID Status Reason Start Date Expiration Date Visits Re quested Visits Authorized [id number] Closed 09/16/2022 10/17/2022 1 1 Reason for Visit * Outpatient (Routine) - Closed Specialty Diagnoses / Procedures Referred By Contact Referred To Contact Cardiovascular Diseases / Cardiovascular Disease Diagnoses Prolonged QT Interval Seema Reina, P.A.-C. [address] [place] [address] [facility] Referral ID Status Reason Start Date Expiration Date Visits Re quested Visits Authorized [id number] Closed 11/14/2021 11/14/2022 1 1 Encounter Details Date Type Department Care Team (Latest Contact Info) Description 09/16/2022 1:00 PM CDT Comprehensive Visit Department of Cardiovascular Medicine in [place], [place] [address] [place] [address] Derrick Ríos M.D., Ph.D. [address] [place] [address] Prolonged QT Interval Social History Tobacco Use Types Packs/Day Years [...] declined 09/11/2022 How often do you attend tenriism or yazdanism serv ices? Patient declined 09/11/2022 Do you belong to any clubs o r organizations such as tenriism groups, unions, fraternal or athletic groups, or [...] Answer Date Recorded PHQ-2 Score 1 08/20/2019 [facility] [...] place to sleep or slept in a halfway (including now)? 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 - 09/16/2022 1:00 PM CDT SUBJECTIVE Referring Provider: Seema Reina P.A.-C. Reason for Consultation: 1. QTc prolongation 2. Family history of sudden unexplained /possible long QT syndrome CHIEF COMPLAINT/REASON FOR CONSULT Initial evaluation, risk-stratification and management of QTc prolongation in the history of a extended family history of sudden unexplained /possible long QT syndrome. HISTORY OF PRESENT ILLNESS Ms. Earnestine Ulloa is a very pleasant 32 y.o. female with a previous medical history significant forbipolar disorder, asthma and a remote history of hair- grooming syncope who presents to the [facility] due to concern for possible congenital long QT syndrome. Briefly, aside from several syncopal episodes in high school that all occurred while her sister wasbraiding her hair and have been clearly attributed to so- called hair-grooming syncope, Mrs. Ulloa has yet to experience a true syncopal or seizure disorder. She does endorse a raising heart sensation that frequently occurs with position changes, but no clear cardiac symptoms. Concern for long QT syndrome has been raised based on echocardiograms while in sinus tachycardia displaying computer QTc values in the 470 range in the setting of a family history of sudden unexplained involving her maternal uncle. As far as Mrs. Ulloa is aware, her maternal uncle was in excellent shape and simply collapsed following a routine run. She is unaware of whether an autopsy was performed, if a pre-mortem diagnosis of long QT syndrome was tested or if any pre-mortem or post-mortem genetic testing was performed. Nevertheless, her maternal grandfather did clearly communicate toher that her uncle's was attributed to long QT syndrome. FAMILY HISTORY A multigenerational family history was obtained. Aside from the sudden of her maternal uncle at age 19 that has been attributed to long QT syndrome (not clear if this diagnosis was rendered clinically, via post-mortem genetic testing or simply assumed based on a negative autopsy), there is noother history of sudden or inadequately explained on either Mrs. Ulloa's maternal or paternal sides. Her mother, who would be an obligate carrier linking Mrs. Ulloa to her uncle, does not have much contact with the medical system and if she was symptomatic (ie syncope or seizures) Mrs. Ulloa suspects it is highly unlikely that she would tell her or her other siblings. She has 1 maternal 1/2 sister and 2 full biological sisters who have no cardiac issues. She has 4 children (ages 13, 9,7 and 6 months). He 7-year-old son has an EEG-diagnosed/confirmed seizure disorder attributed to a pathogenic/likely pathogenic variant in GRIM2A per report. There is also concern that her six month old may have a similar seizure disorder and genetic testing was recently sent from a Neurology/epilepsy perspective. No dedicated cardiac work-up has been performed, but Mrs. Ulloa believes the epilepsy diagnoses are firmly supported and the Neurology teams have not raised concerns about a potential cardiac cause. REVIEW OF SYSTEMS 10-point review systems is negative except for per HPI. OBJECTIVE There were no vitals filed for this visit. BP Readings from Last 3 Encounters: 05/21/22 102/71 12/10/21 108/65 11/16/21 118/64 PHYSICAL EXAMINATION General: Well-appearing appropriately interactive. Eyes: Anicteric sclera without conjunctiva pallor. Vessels: No jugular venous distention. Heart: Regular rate and rhythm with audible S1 and S2 no murmurs rubs or gallops. Lungs: Clear to auscultation bilaterally no wheezes rales or rhonchi. Extremities: No lower extremity edema. DIAGNOSTICS Labs: No recent. Prior potassium levels have been in the 3.9 to 4.2 range. ECGs: 11/14/2021: Normal sinus. Computer QTc of 464 ms. Manual lead II QTcB of 441 ms. 11/12/2021: Sinus tachycardia. Computer QTc of 475 ms. Manual lead II QTc of 458 ms. 02/02/2015: Sinus tachycardia. Computer QTc of 452 ms. Manual lead II QTcB of 452 ms. 12/17/2014: Normal sinus rhythm. ComputerQTc of 454 ms. Manual lead II QTcB of 433 ms. Collectively, no flat, broad or notched/bifid T-wavesare noted on these studies. Holter (12/05/2021): The basic rhythm was sinus with sinus arrhythmia. Average heart rate of 89 beats per minute. Three thousand two hundred two PVCs accounting for a total burden of 3%. Twenty-five PACs accounting for less than 1% of total beats. Three symptomatic events were noted including chestpain, lightheadedness, fatigue and dyspnea corresponding to sinus or sinus tachycardia 80-130 beatsper minute. CPET: Negative for ischemia. Low peak VO2 without clear cardiac or pulmonary impairment to exercise. Reasons for low peak VO2 include deconditioning. Pre-test (sitting) manual lead II QTcB: 439 ms Pre-test (supine) manual lead II QTcB: 405 ms Pre-test (standing) manual lead II QTcB: 437 ms Peak exercise manual lead II QTcB: 394 ms 1 min recovery manual lead II QTcB: 418 ms 3 min recovery manual lead II QTcB: 426 ms 5 min recovery manual lead II QTcB: 462 ms TTE: Normal LV chamber size with a calculated ejection fraction 64%. Normal LV filling pressure. Normal right ventricular chamber size and systolic function. Estimated right ventricular systolic pressure of 24 mm Hg. Normal inferior vena cava size and inspiratory collapse. ASSESSMENT / PLAN #1 Borderline QTc prolongation (manual lead II QTcB values in the 440 to 460 ms range), in the setting of #2 #2 Extended family history of sudden unexplained (materna uncle at age 19) currently attributed to long QT syndrome #3 Remote history of hair-grooming syncope #4 Possible mild cardiac dysautonomia in the POTS/IAST spectrum ASSESSMENT: It was a pleasure to meet Mrs. Ulloa in the [facility] this afternoon. She is referred by Ms. Seema Reina for assessment of QTc values at the upper limit of normal in the setting of a extended family history of sudden unexplained attributed tolong QT syndrome. I independently reviewed Mrs. Ulloa's available electrocardiographic, imaging and laboratory data.Collectively, manual lead II QTc values run in the 440-460 ms range (I suspect the 475 ms on her 10/2021 ECGs are a bit of an over- estimate) which is on the upper side of normal, but do not exceed the 99th percentile values for otherwise healthy post-pubertal females at 480 ms. Furthermore, there is no LQT1-like maladaptive QT response with exercise as the QTc appropriately shortens to the 400 msrange during peak exercise and early recovery. Lastly, the look of cardiac repolarization at restis normal with no flattened, broad, or notched T-wave morphologies appreciated on ECGs spanning a 7-8 year period. As discussed with Mrs. Ulloa, in the absence of her family history my suspicious for underlying congenital long QT syndrome would be relatively low based on the length and look of her cardiac repolarization. In regards to further work-up, given the maternal family history of MEJIA attributed to long QT syndrome, seizure disorder history in her children and inability to clinically or genetically test her mother, I did offer to send a LQTS-directed genetic testing panel to remove any possibility of an underlying, but relatively concealed genetic substrate in Mrs. Ulloa. If this returns negative, we can essentially dismiss her as normal from a LQTS perspective with the understanding that she likely hasa modestly deficit cardiac repolarization reserve and therefore some degree of mindfulness in regards to use of QTc prolonging medications is needed. RECOMMENDATIONS: - I have requested a long QT syndrome-specific genetic testing panel to rule out any sort of possibility of congenital long QT syndrome in the setting of a maternal history of MEJIA attributed to LQTS and seizure disorder diagnoses (likely attributed to GRIM2A) in her children. - Although I suspect the likelihood of unearthing a pathogenic/likely pathogenic variant in one of the strong/definitive evidence LQTS-susceptibility genes is low, Mrs. Ulloa could very well have a repolarization reserved deficit genetic background that is driven by a polygenic cocktail. Therefore, to the fullest extent possible I advised her to avoid QTc prolonging medications (www.crediblemeds.org) if alternatives exist. Medications on this list can likely be safely utilized, but I recommenda pre-initiation ECG as well as one within a week of initiating any QTc prolonging medication to assure there is not an exaggerated QTc response (ie QTc delta >60 ms between pre- and post- ECGs). - It appears that Mrs. Ulloa's 7-year-old's seizure disorder is well explained molecularly. If there is any doubt, I would high encourage both to undergo clinical screening for LQTS given concerns within the family with 12-lead ECGs obtained 24 hours apart. At this point, I do not think screening for CPVT (exercise stress test) or other SCD-predisposing disorders is merited. - No specific follow-up in the [facility] has been arranged. Krishan reach out via the patient portal when the results of her genetic testing are available and arrange a NFTF or FTF return visit if necessary to discussed the implications. This plan was discussed in detail with Mrs. Ulloa who is in agreement with the plan as detailed above. All questions answered to the best of my ability. documented in this encounter Plan of Treatment Not on file documented as of this encounter Results * Long QT Syndrome Gene Panel (09/16/2022 1:34 PM CDT) [facility] Signature Test Description Evaluation of 10 genes associated with long QT syndrome (LQTS) 10/15/2022 7:35 PM CDT DTL Specimen WB Whole Blood 10/15/2022 7:35 PM CDT DTL Genes Analyzed BDDFJ4C, CALM1, CALM2, CALM3, KCNE1, KCNH2, KCNJ2, KCNQ1, SCN5A and TRDN 10/15/2022 7:35 PM CDT DTL Disclaimer Clinical Correlations An online research opportunity called [employer] ([employer]) , a project of [employer], is available for the recipient of this genetic test. This patient registry collects de-identified genetic and health information to advance the knowledge of genetic variants. [facility] is a collaborator of [employer]. This may not be applicable for all [...] assistance in the interpretation of these results, [facility] Laboratory genetic counselors can be contacted at [...] this test. Reclassification of Variants Policy See www.[employer]. com (TEST ID LQTSG) for information regarding the laboratory's policy for reclassification of variants. Variant Evaluation Variant curation is performed using published ACMG-AMP recommendations as a guideline. Other gene-specific guidelines may also be considered. Variants classified as benign or likely benign are not reported. Results from in silico evaluation tools may private branch exchange installer time and should be interpreted with caution and professional clinical judgment. TEST CLASSIFICATION This test was developed and its performance characteristics determined by [facility] in a manner consistent with CLIA requirements. This test has not been cleared or approved by the U.S. Food and Drug Administration. 10/15/2022 7:35 PM CDT DTL Released By Skyler Hudson M.D. 10/15/2022 7:35 PM CDT DTL Result Summary Negative 10/15/2022 7:35 PM CDT DTL Result No reportable variants were detected. 10/15/2022 7:35 PM CDT DTL Method Next generation sequencing (NGS) and/or [place] sequencing was performed to test for the [...] methodologies based on internal laboratory criteria. See www.myrtle creekGetYou. [employer] (TEST ID LQTSG) for details regarding genes [...] Ríos M.D., Ph.D. 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 [address] [place] [phone] PCP - General 09/07/20 documented as of this encounter
--- OUTSIDE RECORDS SUMMARY | 2023-07-10 09:28 | XMS_ITS | Clinical Summary ---
Author Name Unknown Organization [facility] [employer] [facility] Address [place], [place] [address] Care Team Providers Care Water Resource Engineering Specialist Name Role Phone Pcp, No Primary Care Provider Unavailabl e Allergies Active Allergy Reactions Criticality Noted Date Comments Iodinated Contrast Media Palpitations 8 Latex *Unknown 05/30/2011 Omeprazole *Unknown 05/30/2011 Prilosec Ranitidine Itching 02/26/2017 Shellfish Containing Products Anaphylaxis,Shortness Of Breath High 06/11/2011 Medications Medication Sig Dispensed Refills Start Date End Date Status venlafaxine (EFFEXOR XR) 150 mg Extended-Release capsuleIndications: anxiety with depression,Previous provider- Jayde Grande Take 150 mg by mouth at bedtime. Indications: Anxiety with Depression, Previous provider- Jayde Grande 0 Active venlafaxine (EFFEXOR XR) 75 mg cp24 Extended-Release capsuleIndications: anxiety with depression,Previous provider- Jayde Grande Take 75 mg by mouth at bedtime. Indications: Anxiety with Depression, Previous provider- Jayde Grande 0 Active traZODone (DESYREL) 50 mg tablet Take 50-100 mg by mouth at bedtime if needed for Sleep. 0 Active SUMAtriptan (IMITREX) 50 mg tablet Take 50 mg by mouth. Give at minimum 2hrs apart. Max Dose: 200mg per 24hrs. 0 Active albuterol (PROVENTIL) 0.083 % neb solution Inhale 2.5 mg via a nebulizer every 6 hours if needed. 0 Active levonorgestrel intrauterine device (MIRENA) 20 mcg/24 hr (5 years) IUD Inject 1 Device intrauterine one time. 0 Active docusate (COLACE) 100 mg capsuleIndications: Chronic constipation Take 1 capsule by mouth 2 times daily. 60 capsule 3 02/28/2017 Active busPIRone (BUSPAR) 10 mg tablet Take 10 mg by mouth once daily. 0 Active LORazepam (ATIVAN) 0.5 mg tabIndications:Vert igo Place 1 tablet under the tongue every 8 hours if needed for Other (Specify) (vertigo) for up to 3 doses. 3 tablet 0 05/11/2017 Active Phentermine HCl 37.5 mg capsule Take 37.5 mg by mouth once daily. 0 08/19/2018 Active topiramate (TOPAMAX) 50 mg tablet Take 50 mg by mouth 2 times daily. 0 06/12/2018 Active cyclobenzaprine (FLEXERIL) 10 mg tabletIndications:N elizabeth pain, acute Take 1 tablet by mouth 3 times daily if needed for Muscle Spasm. 15 tablet 0 08/23/2018 Active Active Problems Problem Noted Date Diagnosed Date GI bleed 11/21/2016 URTI (acute upper respiratory infection) 014 Cough 12/10/2013 Fever 12/10/2013 h/o Migraine 12/10/2013 h/o Asthma 12/10/2013 Premenopausal menorrhagia 06/12/2011 Pelvic pain in female 06/10/2011 Estimated Date of Delivery Comme nts Yes 03/21/2022 Encounters Date Type Department Care Team Description 06/04/2023 Lab Requisition [facility] [phone] Nicol Terrell MD from Last 3 Months Family History Medical History Relation Name Comments Asthma Daughter 1 The patient's jc reagan has a home nebulizer machine. Good Health Daughter 2 Good Health Father Good Health Mother Good Health Son Relation Name Status Comments Daughter 1 Daughter 2 Father Alive Maternal Grandfather Alive Maternal Grandmother Alive Mother Alive Paternal Grandfather 1 Alive Paternal Grandfather 2 Paternal Grandmother Alive Sister 1 Alive Sister 2 Alive Son Social History Tobacco Use Types Packs/Day Years Used Date Smoking Tobacco: Never Smokeless Tobacco: Never Tobacco Cessation:Counseling Given: Yes Alcohol Use Standard Drinks/Week Comments No 0 (1 standard drink = 0.6 oz pur e alcohol) Estimated Date of Delivery Comme nts Yes 03/21/2022 Sex and Gender Information Value Date Recorded Sex Assigned at Not on file Gender Identity Not on file Sexual Orientation Not on file Obstetrics History Para Term AB IAB SAB Ectopic Multiple Livin g Live Births 3 1 1 1 Date Outcome GA Total Labor Labor/2nd/3rd Weight Sex Delivery Anes PTL Xuan A1 A5 Name Cl in Comments:System Genera opal. Please review and update details. 07/12 10 Para F Vag Epidu ral Susana ng Current Last Filed Vital Signs Vital Sign Reading Time Taken Comments Blood Pressure 112/70 11/06/2021 4:09 PM CDT Pulse 86 11/06/2021 4:09 PM CDT Temperature 36.8 ??C (98.2 ??F) 11/06/2021 2:47 PM CD T Respiratory Rate 16 11/06/2021 4:09 PM CDT Oxygen Saturation 100% 11/06/2021 4:09 PM CDT Inhaled Oxygen Concentration - - Weight 65.8 kg (145 lb) 11/06/2021 5:03 PM CDT Height 167.6 cm (5' 6) 11/06/2021 5:03 PM CDT Body Mass Index 23.4 11/06/2021 5:03 PM CDT Plan of Treatment Health Maintenance Due Date Last Done Comments COVID-19 vaccine series (#1) 03/11/1991 Tdap 2001 Depression screening for age 12+ 2002 HIV for age 15-65 2005 Hepatitis C screening for age 18-79 2008 Tetanus booster 2010 BMI (ht and wt on same day) for age 18+ 02/21/2018 02/21/2017, 11/20/2016, 03/15/2016, Additional history exists Influenza for age 9-49 02/21/2023 Pap test for age 21-65 08/10/2024 08/10/2021, 2021 Pneumococcal series for age 6-64 Aged Out No longer eligible based on patient's age to complete this topic Procedures Procedure Name Priority Date/Time Associated Diagnosis Comments LAB TRACKING EVENT Routine 06/03/2023 12 :00 PM DEPARTMENT COORDINATOR PATH TISSUE EXAM Routine 06/03/2023 12:0 0 PM DEPARTMENT COORDINATOR from Last 3 Months Results * LAB TRACKING EVENT (06/03/2023 12:00 PM DEPARTMENT COORDINATOR) Other (Other) Client Collect / Unknown 06/03/2023 12:00 PM DEPARTMENT COORDINATOR 06/04/2023 5:57 PM DEPARTMENT COORDINATOR Nicol Terrell MD LAB BILL ONLY [facility] [address] [place] [address], * PATH TISSUE EXAM (06/03/2023 12:00 PM DEPARTMENT COORDINATOR) Case Report Pathology Report ?Case: [id number] ? Authorizing Provider: ??Nicol Terrell MD ?? Collected: ? 06/03/2023 1200 ? Ordering Location: ? [facility] ?Received: ?06/04/2023 1824 ? Pathologist: ? Jose Smith MD ? Specimen: ?Endometrial ? 06/06/2023 8:57 AM DEPARTMENT COORDINATOR [facility] Final Diagnosis A) ENDOMETRIUM, BIOPSY: 1. Secretory endometrium 2. Negative for chronic endometritis 3. Negative for hyperplasia, atypia, and malignancy 06/06/2023 8:57 AM DEPARTMENT COORDINATOR [facility] [employer] LABORATORY-C ENTRAL LABORATORY Clinical Information Abnormal uterine bleeding 06/06/2023 8:57 AM DEPARTMENT COORDINATOR [facility]TRAL LABORATORY Gross Description A) Received in formalin, labeled with the patient's name and date of , is a 2.2 x 1.0 x 0.3 cm aggregate of calabrese mucosa. ??The specimen is entirely submitted in 1 cassette. EKW 06/04/2023 06/06/2023 8:57 AM DEPARTMENT COORDINATOR [facility] LAB[facility]-C [facility]TRAL LABORATORY Microscopic Description The final diagnosis is based on microscopic examination of appropriate sections of all specimens. 06/06/2023 8:57 AM DEPARTMENT COORDINATOR [facility] [employer] LABORATORY-C ENTRAL LABORATORY Additional Information Interpreted at [facility], Central Laboratory - [address] [place] [id number] 06/06/2023 8:57 AM DEPARTMENT COORDINATOR [facility] [employer] [facility] Other SPECIMEN FROM ENDOMETRIUM / Unknown 06/03/2023 12:00 PM DEPARTMENT COORDINATOR 06/04/2023 6:24 PM DEPARTMENT COORDINATOR Nicol Terrell MD PATHOLOGY/CYTOLOG Y [facility] [address] [place] [address], from Last 3 Months Advance Directives Latest Code Status on File Code Status Date Activated Date Inactivated Comments Full Code 11/21/2016 12:28 AM 11/22/2016 8:38 PM Code Status History Code Status Date Activated Date Inactivated Comments Full Code 08/29/2015 11:04 AM 08/30/2015 7:02 PM Full Code 12/10/2013 11:06 PM 12/12/2013 2:31 PM Full Code 08/13/2013 8:00 AM 08/13/2013 12:57 PM Full Code 05/09/2013 9:05 PM 05/10/2013 12:36 AM Care Teams Water Resource Engineering Specialist Relationship Specialty Start Date End Date Pcp, No . PCP - General 11/06/21
--- OUTSIDE RECORDS SUMMARY | 2023-07-10 09:28 | XMS_ITS | Encounter Summary ---
Author Name Unknown Organization [facility] Address [address] [place] [address] Care Team Providers Care Rehabilitation Construction Specialist Name Role Phone Seema Reina P.A.-C. Primary Care Provider +1- [phone] Reason for Referral * Outpatient (Routine) - Closed Specialty Diagnoses / Procedures Referred By Contac t Referred To Contact Cardiovascular Disease Diagnoses Prolonged QT Interval Procedures Cardiopulmonary (VO2) Exercise Test Seema Reina P.A.-C. [address] [place] [address] [facility] Region Referral ID Status Reason Start Date Expiration Date Visits Re quested Visits Authorized [id number] Closed 11/14/2021 11/14/2022 1 1 Reason for Visit * Outpatient (Routine) - Closed Specialty Diagnoses / Procedures Referred By Contac t Referred To Contact Cardiovascular Disease Diagnoses Prolonged QT Interval Procedures Cardiopulmonary (VO2) Exercise Test Seema Reina P.A.-C. [address] [place] [address] [facility] Region Referral ID Status Reason Start Date Expiration Date Visits Re quested Visits Authorized [id number] Closed 11/14/2021 11/14/2022 1 1 Encounter Details Date Type Department Care Team (Latest Contact Info) Description 09/16/2022 7:30 AM CDT - 09/16/2022 8:21 AM CDT Hospital Encounter Department of Cardiovascular Diseases in [place], [place] [address] [place] [address] Seema Reina P.A.-C. [address] [place] [address] Prolonged QT Interval Discharge Disposition: Home or [...] declined 09/11/2022 How often do you attend yazidism or mu-ism serv ices? Patient declined 09/11/2022 Do you belong to any clubs o r organizations such as yazidism groups, unions, fraternal or athletic groups, or [...] Answer Date Recorded PHQ-2 Score 1 08/20/2019 [facility] of Occupat ional Health - Occupational Stress [...] place to sleep or slept in a [place] health care facility (including now)? Patient refused 09/11/2022 Depression Answer [...] CDT Gender Identity Female 05/06/2017 10:05 AM ASSET PROTECTION REPRESENTATIVE Sexual Orientation Choose not to disclose [...] times a day. 180 capsule 3 09/09/2017 lamoTRIgine (LaMICtaL) 100 mg tablet Take 50 mg by mouth daily. Patient currently on taper off of medication 0 09/27/2021 01/08/2023 documented as of this encounter Plan of Treatment Not on file documented as of this encounter Procedures Procedure Name Priority Date/Time Associated Diagnosis Comments CARDIOPULMONARY (VO2) EXERCISE TEST Routine 09/16/2022 8:27 AM CDT Prolonged QT Interval documented in this encounter Results * CARDIOPULMONARY (VO2) EXERCISE TEST (09/16/2022 8:27 AM CDT) 09/16/2022 7:30 AM CDT Narrative [facility] CV MERGE - 09/16/2022 1:56 PM CDT See PDF For Result Procedure Note Den Mitchell M.D., M.B.A. - 09/16/2022 See PDF For Result Seema Reina P.A.-C. CV STRESS PROCEDUR ES CV MERGE NA documented in this encounter Visit Diagnoses Diagnosis Prolonged QT Interval documented in this encounter Additional Health Concerns Assessment Noted Time PHQ-9 Depression Total Score: 7 08/20/19 20 11:28 AM ASSET PROTECTION REPRESENTATIVE documented as of this encounter Care Teams Rehabilitation Construction Specialist Relationship Specialty Start Date End Date Seema Reina P.A.-C. [address] [address] PCP - General 09/07/20 documented as of this encounter
[2023-07-10 09:56] LABS: Hemoglobin* 10.9 gm/dL (12.0-16.0)
[2023-07-10 09:57] LABS: Ur HCG Qualitative* Negative (Negative)
[2023-07-10 10:00] VITALS: BP 118/76; PULSE 71; RESP 16; TEMP 36.9; O2SAT 99; BMI 30.8
[2023-07-10] MEDS: LACTATED RINGERS 1000 ML 1,000 ML 100 ML IV (10:00)
[2023-07-10] MEDS: SODIUM CHLORIDE 0.9 % (FLUSH) 10 ML SYRINGE IVF (10:00)
--- NOTE | 2023-07-10 10:20 | SUR.PREOP ---
1000: Patient states she tested positive for COVID 06/21/23. She tested due to her children testing positive for COVID. Patient denies having symptoms of COVID. Patient sounds congested and patient states that's her normal. Dr. Rodriguez with Anesthesia is notified.
--- NOTE | 2023-07-10 10:29 | SUR.PREOP ---
Dr. Rodriguez in to see patient. Patient agreeable to surgery rescheduled to Sunday 07/16.
== END 2023-07-10 10:52 | disposition home or self-care (01) ==
PROVIDERS: Visit Provider Obstetrics & Gynecology
PROC: (CPT 58662; principal; 2023-07-10 10:30)
PROC: 0UF98ZZ Fragmentation in Uterus, Via Natural or Artificial Opening Endoscopic (ICD-10-PCS; 2023-07-10 10:30)
DX: Z53.09 Procedure and treatment not carried out because of other contraindication (principal); U07.1 COVID-19
CPT/HCPCS: 36415; 81025; 85018; 86850; 86900; 86901; J2250; J3010; J7120

== ENCOUNTER 2023-07-16 06:00 | Day surgery (SDC) | payer BC, OTHER, SELFPAY ==
[2023-07-16] VITALS (13 sets, daily range): BP systolic 115–134; BP diastolic 64–80; PULSE 57–80; RESP 12–20; TEMP 36.3–36.9; O2SAT 98–100; BMI 30.7
--- OUTSIDE RECORDS SUMMARY | 2023-07-16 06:04 | XMS_ITS | Referral Summary ---
Author Name Unknown Organization [facility] Address [address] [place] [address] Care Team Providers Care Refrigeration Repair Supervisor Name Role Phone Seema Reina P.A.-C. Primary Care Provider +1- [phone] Source Comments Patient records contain information from all sites at [facility]. For routine questions regarding patient records, call [phone] during business hours, M-F 8:00 AM - 5:00 PM Central Time. Record requests for emergency care only can be directed to [phone] at any time.[facility] Encounters Date Type Department Care Team Description 06/25/2023 12:00 PM MEASURER MACHINE Office Visit Department of Family Medicine, [facility], in [place], [place] [address] [place] [address] Seema Reina P.ARiley-CRiley Preoperative Exam (Primary Dx); Asthma Mild Intermittent (HCC) 06/12/2023 Nurse Triage Department of Family Medicine, [facility], in [place], [place] [address] [address] Kellee Obrien RYvette Testing For Upper Respiratory Virus Symptoms 05/16/2023 Nurse Triage Department of Family Medicine, [facility], in [place], [place] [address] [place] [address] Lynn Mckeon R.N. Abdominal Pain 04/21/2023 Clinical Communication Department of Family Medicine, [facility], in [place], [place] [address] [address] Seema Reina P.A.-C. from Last 3 Months [...] declined 09/11/2022 How often do you attend mandaeism or moravian serv ices? Patient declined 09/11/2022 Do you belong to any clubs o r organizations such as mandaeism groups, unions, fraternal or athletic groups, or [...] Answer Date Recorded PHQ-2 Score 0 06/25/2023 [facility] of Occupat ional Health - Occupational [...] your living situation today? I have a [facility] place to live 01/01/2023 Education Answer Date Recorded What is the highest level of school you have completed or the highest degree you have received? Associate degree: occupational, technical, or vocational program 03/12/2019 Sex and Gender Information Value Date Recorded Sex Assigned at Female 09/11/2022 8:42 PM CDT Gender Identity Female 05/06/2017 10:05 AM MEASURER MACHINE Sexual Orientation Choose not to disclose 2022 8:42 PM CDT Last Filed Vital Signs Vital Sign Reading Time Taken Comments Blood Pressure 106/74 06/25/2023 11:52 AM MEASURER MACHINE Pulse 85 06/25/2023 11:52 AM MEASURER MACHINE Temperature 35.7 ??C (96.2 ??F) 10/09/2022 9:19 AM CD T Respiratory Rate 18 11/12/2021 6:00 PM CDT Oxygen Saturation 98% 09/16/2022 12:44 PM CDT Inhaled Oxygen Concentration - - Weight 92 kg (202 lb 13.2 oz) 06/25/2023 11:52 A M MEASURER MACHINE Height 172.8 cm (5' 8.03) 06/25/2023 11:[address] Body Mass Index 30.81 06/25/2023 11:52 AM MEASURER MACHINE Plan of Treatment Not on file Care Teams Refrigeration Repair Supervisor Relationship Specialty Start Date End Date Seema Reina P.A.-C. [address] [place] [address] PCP - General 09/07/20
--- OUTSIDE RECORDS SUMMARY | 2023-07-16 06:04 | XMS_ITS | Clinical Summary ---
Author Name Unknown Organization [facility] Address [address] [place] [address] Care Team Providers Care Tax Collection Coordinator Name Role Phone Seema Reina P.A.-C. Primary Care Provider +1- [phone] Source Comments Patient records contain information from all sites at [facility]. For routine questions regarding patient records, call [phone] during business hours, M-F 8:00 AM - 5:00 PM Central Time. Record requests for emergency care only can be directed to [phone] at any time.[facility] Allergies Active Allergy Reactions Criticality Noted Date [...] Department Care Team Description 06/25/2023 12:00 PM CASHIER TUBE ROOM Office Visit Department of Family Medicine, [facility], in [place], [place] [address] [phone] Seema Reina, P.A.-C. Preoperative Exam (Primary Dx); Asthma Mild Intermittent (HCC) 06/12/2023 Nurse Triage Department of Family Medicine, [facility], in [place], [place] [address] [address] Kellee Obrien, R.N. Testing For Upper Respiratory Virus Symptoms 05/16/2023 Nurse Triage Department of Family Medicine, [facility], in [place], [place] [address] [address] Lynn Mckeon R.N. Abdominal Pain 04/21/2023 Clinical Communication Department of Family Medicine, [facility], in [place], [place] [address] [address] Seema Reina P.A.-C. from Last 3 Months [...] declined 09/11/2022 How often do you attend jainism or lutheran serv ices? Patient declined 09/11/2022 Do you belong to any clubs o r organizations such as jainism groups, unions, fraternal or athletic groups, or [...] Answer Date Recorded PHQ-2 Score 0 06/25/2023 [facility] of Occupat ional Health - Occupational Stress [...] your living situation today? I have a [facility] place to live 01/01/2023 Education Answer Date Recorded What is the highest level of school you have completed or the highest degree you have received? Associate degree: occupational, technical, or vocational program 03/12/2019 Sex and Gender Information Value Date Recorded Sex Assigned at Female 09/11/2022 8:42 PM CDT Gender Identity Female 05/06/2017 10:05 AM CASHIER TUBE ROOM Sexual Orientation Choose not to disclose 2022 8:42 PM CDT Last Filed Vital Signs Vital Sign Reading Time Taken Comments Blood Pressure 106/74 06/25/2023 11:52 AM CASHIER TUBE ROOM Pulse 85 06/25/2023 11:52 AM CASHIER TUBE ROOM Temperature 35.7 ??C (96.2 ??F) 10/09/2022 9:19 AM CD T Respiratory Rate 18 11/12/2021 6:00 PM CDT Oxygen Saturation 98% 09/16/2022 12:44 PM CDT Inhaled Oxygen Concentration - - Weight 92 kg (202 lb 13.2 oz) 06/25/2023 11:52 A M CASHIER TUBE ROOM Height 172.8 cm (5' 8.03) 06/25/2023 11:[address] Body Mass Index 30.81 06/25/2023 11:52 AM CASHIER TUBE ROOM Plan of Treatment Health Maintenance Due Date [...] age to complete this topic Care Teams Tax Collection Coordinator Relationship Specialty Start Date End Date Seema Reina P.A.-C. [address] [place] [address] PCP - General 09/07/20
--- OUTSIDE RECORDS SUMMARY | 2023-07-16 06:05 | XMS_ITS | Encounter Summary ---
Author Name Unknown Organization [facility] Address [address] [place] [address] Care Team Providers Care Scruff Worker Name Role Phone Seema Reina P.A.-C. Primary Care Provider +1- [phone] Encounter Details Date Type Department Care Team (Late st Contact Info) Description 12/08/2022 Orders Only Department of Family Medicine, [facility], in [place], [place] [address] [address] Joel Duque M.D. [address] [place] [address] Social History Tobacco Use Types [...] How often do you attend sabianism or methodist serv ices? Patient declined 09/11/2022 [...] place to sleep or slept in a nursing home (including now)? Patient refused 09/11/2022 Depression Answer [...] CDT Gender Identity Female 05/06/2017 10:05 AM FOSTER CARE WORKER Sexual Orientation Choose not to disclose 2022 8:42 PM CDT documented as of this encounter Plan of Treatment Not on file documented as of this encounter Visit Diagnoses Not on filedocumented in this encounter Additional Health Concerns Assessment Noted Time PHQ-9 Depression Total Score: 7 08/20/19 20 11:28 AM FOSTER CARE WORKER documented as of this encounter Care Teams Scruff Worker Relationship Specialty Start Date End Date Seema Reina P.A.-C. [address], [place] [address] PCP - General 09/07/20 documented as of this encounter
--- OUTSIDE RECORDS SUMMARY | 2023-07-16 06:05 | XMS_ITS | Encounter Summary ---
Author Name Unknown Organization [facility] Address [address] [place] [address] Care Team Providers Care Associate Professor Of Archaeology Name Role Phone Seema Reina P.A.-C. Primary Care Provider +1- [phone] Reason for Referral * Outpatient (Routine) - Authorized Specialty Diagnoses / Procedures Referred By Heriberto t Referred To Contact Diagnoses Postural Orthostatic Tachycardia Syndrome Procedures Autonomic reflex Screen Seema Reina P.A.-C. [address] [place] [address] [facility] Referral ID Status Reason Start Date Expiration Date V isits Requested Visits Authorized [id number] Authorized 01/08/2023 01/08/2024 1 1 Reason for Visit * Reason Comments Follow-up F/u POTS * Outpatient (Routine) - Closed Specialty Diagnoses / Procedures Referred By Contashish jewell Referred To Contact Family Medicine Seema Reina P.A.-C. [address] [place] [address] [facility] Referral ID Status Reason Start Date Expiration Date Visits Re quested Visits Authorized [id number] Closed 10/09/2022 10/08/2025 1 1 Encounter Details Date Type Department Care Team (Late st Contact Info) Description 01/08/2023 12:00 PM CDT Telemedicine Department of Family Medicine, [facility], in [place], [place] [address] [address] Seema Reina P.A.-C. [address] [place] [address] Postural Orthostatic Tachycardia Syndrome (Primary [...] How often do you attend baptist or restoration serv ices? Patient declined 09/11/2022 Do you [...] Answer Date Recorded PHQ-2 Score 0 10/09/2022 [facility] of Occupat ional Health - Occupational Stress [...] CDT Gender Identity Female 05/06/2017 10:05 AM FINANCIAL SYSTEMS DIRECTOR Sexual Orientation Choose not to disclose 2022 [...] modifications consider follow-up with [facility] in [place]. Consult conducted via real-time audio/video technology by Seema Reina PA-C in [facility] to thepatient in home. Total time spent [...] Total Score: 7 08/20/19 20 11:28 AM FINANCIAL SYSTEMS DIRECTOR documented as of this encounter Care Teams Associate Professor Of Archaeology Relationship Specialty Start Date End Date Seema Reina P.A.-C. [address] [place] [phone] PCP - General 09/07/20 documented as of this encounter
--- OUTSIDE RECORDS SUMMARY | 2023-07-16 06:05 | XMS_ITS | Encounter Summary ---
Author Name Unknown Organization [facility] Address [address] [place] [address] Care Team Providers Care Spindle Plumber Name Role Phone Seema Reina P.A.-C. Primary Care Provider +1- [phone] Reason for Visit * Reason Comments Blood Pressure Check Weight Check * Outpatient (Routine) - Authorized Specialty Diagnoses / Procedures Referred By Heriberto t Referred To Contact Seema Reina P.A.-C. [address] [place] [address] [facility] Region Referral ID Status Reason Start Date Expiration Date V isits Requested Visits Authorized [id number] Authorized 12/25/2022 12/24/2025 1 1 Encounter Details Date Type Department Care Team (Late st Contact Info) Description 01/24/2023 1:00 PM CDT Nurse Only Department of Family Medicine, [facility], in [place], [place] [address] [place] [address] Seema Reina P.A.-C. [address] [place] [address] Katherine Jones, L.P.N. Blood Pressure [...] How often do you attend tenriism or catholic serv ices? Patient declined 09/11/2022 Do you [...] Answer Date Recorded PHQ-2 Score 0 10/09/2022 [facility] of Occupat ional [facility] - Occupational Stress Questionnaire Answer Date [...] your living situation today? I have a [facility] place to live 01/01/2023 Education Answer Date Recorded What is the highest level of school you have completed or the highest degree you have received? Associate degree: occupational, technical, or vocational program 03/12/2019 Sex and Gender Information Value Date Recorded Sex Assigned at Female 09/11/2022 8:42 PM CDT Gender Identity Female 05/06/2017 10:05 AM CHIP PERSON Sexual Orientation Choose not to disclose 2022 [...] Total Score: 7 08/20/19 20 11:28 AM CHIP PERSON documented as of this encounter Care Teams Spindle Plumber Relationship Specialty Start Date End Date Seema Reina P.A.-C. [address] [place] [address] PCP - General 09/07/20 documented as of this encounter
--- OUTSIDE RECORDS SUMMARY | 2023-07-16 06:05 | XMS_ITS | Encounter Summary ---
Author Name Unknown Organization [facility] Address [address] [place] [address] Care Team Providers Care Draw Hand Name Role Phone Seema Reina P.A.-C. Primary Care Provider +1- [phone] Reason for Visit * Reason Onset Date Comments Medical Information 12/03/2022 Encounter Details Date Type Department Care Team (Late st Contact Info) Description 12/03/2022 Nurse Triage Department of Family Medicine, [facility], in [place], [place] [address] [place] [address] Concha Wilkins RYvette [address] [place] [address] Medical Information Social History Tobacco Use Types [...] declined 09/11/2022 How often do you attend taoism or lutheran serv ices? Patient declined 09/11/2022 Do you belong to any clubs o r organizations such as taoism groups, unions, fraternal or athletic groups, or [...] Answer Date Recorded PHQ-2 Score 0 10/09/2022 [facility] - Occupational Stress Questionnaire Answer Date Recorded [...] place to sleep or slept in a intermediate (including now)? Patient refused 09/11/2022 Depression Answer [...] CDT Gender Identity Female 05/06/2017 10:05 AM CODE NUMBER STAMPER Sexual Orientation Choose not to disclose 2022 8:42 PM CDT documented as of this encounter Miscellaneous Notes * Telephone Encounter - Concha Wilkins R.N. - 12/03/2022 4:52 PM CDT Patient checking on prescription refill for Ozempic. Patient was warm transferred toElyssa Patient Appointment Rn Faculty at the clinic for further assistance. documented in this encounter Plan of Treatment Not on file documented as of this encounter Visit Diagnoses Not on filedocumented in this encounter Additional Health Concerns Assessment Noted Time PHQ-9 Depression Total Score: 7 08/20/19 20 11:28 AM CODE NUMBER STAMPER documented as of this encounter Care Teams Draw Hand Relationship Specialty Start Date End Date Seema Reina P.A.-C. [address] [place] [address] PCP - General 09/07/20 documented as of this encounter
--- OUTSIDE RECORDS SUMMARY | 2023-07-16 06:05 | XMS_ITS | Encounter Summary ---
Author Name Unknown Organization [facility] Address [address] [place] [address] Care Team Providers Care Motion Study Engineer Name Role Phone Seema Reina P.A.-C. Primary Care Provider +1- [phone] Encounter Details Date Type Department Care Team (Late st Contact Info) Description 04/21/2023 Clinical Communication Department of Family Medicine, [facility], in [place], [place] [address], [place] [address] Seema Reina P.A.-C. [address] [place] [address] Social History Tobacco Use Types [...] declined 09/11/2022 How often do you attend sikhism or synagogue serv ices? Patient declined 09/11/2022 Do you belong to any clubs o r organizations such as sikhism groups, unions, fraternal or athletic groups, or [...] Answer Date Recorded PHQ-2 Score 0 10/09/2022 [facility] of Occupat ional Health - Occupational [...] living situation today? I have a [facility] place to live 01/01/2023 Education Answer Date Recorded What is the highest level of school you have completed or the highest degree you have received? Associate degree: occupational, technical, or vocational program 03/12/2019 Sex and Gender Information Value Date Recorded Sex Assigned at Female 09/11/2022 8:42 PM CDT Gender Identity Female 05/06/2017 10:05 AM PUBLIC INFORMATION OFFICER Sexual Orientation Choose not to disclose 2022 [...] Total Score: 7 08/20/19 20 11:28 AM PUBLIC INFORMATION OFFICER documented as of this encounter Care Teams Motion Study Engineer Relationship Specialty Start Date End Date Seema Reina P.A.-C. [address] [place] [phone] PCP - General 09/07/20 documented as of this encounter
--- OUTSIDE RECORDS SUMMARY | 2023-07-16 06:05 | XMS_ITS | Encounter Summary ---
Author Name Unknown Organization [facility] Address [address] [place] [address] Care Team Providers Care Wood Veneer Taper Name Role Phone Bishop Carrillo P.A.-C. Primary Care Provider +1- [phone] Reason for Referral * Outpatient (Routine) - Closed Specialty Diagnoses / Procedures Referred By Heriberto t Referred To Contact Family Medicine Bishop Carrillo P.A.-C. [address] [place] [address] [facility] Referral ID Status Reason Start Date Expiration Date Visits Re quested Visits Authorized [id number] Closed 10/09/2022 10/08/2025 1 1 Reason for Visit * Reason Comments Weight Loss * Appointment Request (Routine) - Closed Specialty Diagnoses / Procedures Referred By Heriberto jewell Referred To Contact Family Medicine Referral ID Status Reason Start Date Expiration Date Visits Re quested Visits Authorized [id number] Closed 09/26/2022 09/26/2023 1 1 Encounter Details Date Type Department Care Team (Late st Contact Info) Description 10/09/2022 9:30 AM CDT Office Visit Department of Family Medicine, [facility], in [place], [place] [address] [place] [address] Bishop aCrrillo P.A.-C. [address] [place] [address] Counseling Diet (Primary Dx); Body Mass [...] declined 09/11/2022 How often do you attend jehovah's witness or baptism serv ices? Patient declined 09/11/2022 Do you belong to any clubs o r organizations such as jehovah's witness groups, unions, fraternal or athletic groups, or [...] Answer Date Recorded PHQ-2 Score 0 10/09/2022 [facility] - Occupational Stress Questionnaire Answer Date Recorded [...] CDT Gender Identity Female 05/06/2017 10:05 AM RIVET MACHINE OPERATOR Sexual Orientation Choose not to disclose 2022 [...] Total Score: 7 08/20/19 20 11:28 AM RIVET MACHINE OPERATOR documented as of this encounter Care Teams Wood Veneer Taper Relationship Specialty Start Date End Date Bishop Carrillo P.A.-C. [address], [place] [phone] PCP - General 09/07/20 documented as of this encounter
--- OUTSIDE RECORDS SUMMARY | 2023-07-16 06:05 | XMS_ITS | Encounter Summary ---
Author Name Unknown Organization [facility] Address [address] [place] [address] Care Team Providers Care Personal Lines Insurance Agent Name Role Phone Seema Reina.A.-CRiley Primary Care Provider +1- [phone] Reason for Visit * Reason Comments Med Change Request Encounter Details Date Type Department Care Team (Late st Contact Info) Description 10/09/2022 Refill Department of Family Medicine, [facility], in [place], [place] [address], [place] [address] Seema Reina P.A.-CRiley [address] [address] Med Change Request Social History [...] declined 09/11/2022 How often do you attend adventist or anabaptist serv ices? Patient declined 09/11/2022 Do you belong to any clubs o r organizations such as adventist groups, unions, fraternal or athletic groups, or [...] Answer Date Recorded PHQ-2 Score 0 10/09/2022 [facility] of Occupat ional Health - Occupational [...] place to sleep or slept in a long term (including now)? Patient refused 09/11/2022 Depression Answer [...] CDT Gender Identity Female 05/06/2017 10:05 AM GROUNDSKEEPING MAINTENANCE Sexual Orientation Choose not to disclose 2022 [...] Total Score: 7 08/20/19 20 11:28 AM GROUNDSKEEPING MAINTENANCE documented as of this encounter Care Teams Personal Lines Insurance Agent Relationship Specialty Start Date End Date Seema Reina P.A.-C. [address] [place] [address] PCP - General 09/07/20 documented as of this encounter
--- OUTSIDE RECORDS SUMMARY | 2023-07-16 06:05 | XMS_ITS | Encounter Summary ---
Author Name Unknown Organization [facility] Address [address] [place] [address] Care Team Providers Care Curb Setter Helper Name Role Phone Seema Reina P.A.-C. Primary Care Provider +1- [phone] Reason for Visit * Reason Onset Date Comments Testing For Upper Respiratory Virus Symptoms Encounter Details Date Type Department Care Team (Late st Contact Info) Description 06/12/2023 Nurse Triage Department of Family Medicine, [facility], in [place], [place] [address] [place] [address] Kellee Obrien, RRileyN. Testing For [...] declined 09/11/2022 How often do you attend samaritan or latter-day serv ices? Patient declined 09/11/2022 Do you belong to any clubs o r organizations such as samaritan groups, unions, fraternal or athletic groups, or [...] Answer Date Recorded PHQ-2 Score 0 10/09/2022 [facility] of Occupat ional [facility] - Occupational Stress Questionnaire Answer Date Recorded [...] your living situation today? [facility] 01/01/2023 Education Answer Date Recorded What is the highest level of school you have completed or the highest degree you have received? Associate degree: occupational, technical, or vocational program 03/12/2019 Sex and Gender Information Value Date Recorded Sex Assigned at Female 09/11/2022 8:42 PM CDT Gender Identity Female 05/06/2017 10:05 AM SUPERVISORY FORESTER Sexual Orientation Choose not to disclose 2022 8:42 PM CDT documented as of this encounter Miscellaneous Notes * Telephone Encounter - Soledad John L.PRileyN. - 06/13/2023 2:13 PM SUPERVISORY FORESTER Given to DOS staff to get scheduled RVISORY FORESTER * Telephone Encounter - Kellee Obrien R.N. - 06/12/2023 2:55 PM SUPERVISORY FORESTER Chief Complaint / Reason for Call Patient [...] her portal account. Her phone number is [phone] and it is fine to leave a detailed message. Reason for Disposition [1] Probable influenza (fever) with no complications AND [2] NOT HIGH RISK Protocols used: Influenza (Flu) - Jtgbyqqq-IPBZB-JT Care Advice Patient/Caregiver understands and will follow [...] or school. * Do NOT go to samaritan, early childhood education coordinator centers, shopping, or other public places. * [...] use a saline nasal spray bottle (available glbl-uvx-bsfypgx). NASAL WASHES - EXJJ-AU-YTBS INSTRUCTIONS: * STEP 1: Lean over a [...] * Most cold medicines that are available jatd-rge-nycnawo (OTC) are not helpful. NASAL DECONGESTANTS FOR [...] with you. * Cough drops are available kklh-loc-pruyggq (OTC). * HOME REMEDY - HARD CANDY: Hard candy works just as well as a medicine-flavored OTC cough drops. COUGH MEDICINES: * COUGH DROPS: Jyke-ouk-nzeykwl cough drops can help a lot, especially for mild coughs. They soothean irritated throat and remove the tickle sensation in the back of the throat. Cough drops are easyto carry with you. * HOME REMEDY - HARD CANDY: Hard candy works just as well as gxhg-wnl-yioljci cough drops. People who have diabetes should [...] either acetaminophen or ibuprofen. * They are rwrq-kvw-fldewkk (OTC) drugs that help treat both fever [...] Difficulty breathing occurs * You become worse RVISORY FORESTER documented in this encounter Plan of Treatment Not on file documented as of this encounter Visit Diagnoses Not on filedocumented in this encounter Additional Health Concerns Assessment Noted Time PHQ-9 Depression Total Score: 7 08/20/19 20 11:28 AM SUPERVISORY FORESTER documented as of this encounter Care Teams Curb Setter Helper Relationship Specialty Start Date End Date Seema Reina P.A.-C. [address] [place] [phone] PCP - General 09/07/20 documented as of this encounter
--- OUTSIDE RECORDS SUMMARY | 2023-07-16 06:05 | XMS_ITS | Encounter Summary ---
Author Name Unknown Organization [facility] Address [address] [place] [address] Care Team Providers Care Sales And Marketing Engineer Name Role Phone Seema Reina P.A.-C. Primary Care Provider +1- [phone] Reason for Visit * Reason Onset Date Comments Abdominal Pain 05/16/2023 Encounter Details Date Type Department Care Team (Late st Contact Info) Description 05/16/2023 Nurse Triage Department of Family Medicine, [facility], in [place], [place] [address] [place] [address] Lynn Mckeon RYvette [address] [place] [address] Abdominal Pain Social History Tobacco Use Types [...] declined 09/11/2022 How often do you attend scientology or caodaism serv ices? Patient declined 09/11/2022 Do you belong to any clubs o r organizations such as scientology groups, unions, fraternal or athletic groups, or [...] Answer Date Recorded PHQ-2 Score 0 10/09/2022 [facility] of Occupat ional Health - [...] your living situation today? [facility] 01/01/2023 Education Answer Date Recorded What is the highest level of school you have completed or the highest degree you have received? Associate degree: occupational, technical, or vocational program 03/12/2019 Sex and Gender Information Value Date Recorded Sex Assigned at Female 09/11/2022 8:42 PM CDT Gender Identity Female 05/06/2017 10:05 AM TELEVISION STATION MANAGER Sexual Orientation Choose not to disclose 2022 8:42 PM CDT documented as of this encounter Miscellaneous Notes * Telephone Encounter - Lynn Mckeon RRileyNRiley - 05/16/2023 7:51 AM TELEVISION STATION MANAGER Chief Complaint / Reason for Call Patient [...] 1 hour Protocols used: Abdominal Pain - Qfuwzh-EBQTY-KH Care Advice Patient/Caregiver understands and will follow care advice?: Yes, able to teach back GO TO ED NOW: * You need to be seen in the Emergency Department. * Go to the ED at nearest Hospital. * Leave now. Drive carefully. VISION STATION MANAGER documented in this encounter Plan of Treatment Not on file documented as of this encounter Visit Diagnoses Not on filedocumented in this encounter Additional Health Concerns Assessment Noted Time PHQ-9 Depression Total Score: 7 08/20/19 20 11:28 AM TELEVISION STATION MANAGER documented as of this encounter Care Teams Sales And Marketing Engineer Relationship Specialty Start Date End Date Seema Reina P.A.-C. [address] [place] [address] PCP - General 09/07/20 documented as of this encounter
--- OUTSIDE RECORDS SUMMARY | 2023-07-16 06:05 | XMS_ITS | Encounter Summary ---
Author Name Unknown Organization [facility] Address [address] [place] [address] Care Team Providers Care Scrum Coach Name Role Phone Seema Reina P.A.-C. Primary Care Provider +1- [phone] Reason for Visit * Reason Comments Nurse Visit BP & weight check fo r phentermine refill * Outpatient (Routine) - Authorized Specialty Diagnoses / Procedures Referred By Heriberto t Referred To Contact Seema Reina P.A.-C. [address] [place] [address] [facility] Region Referral ID Status Reason Start Date Expiration Date V isits Requested Visits Authorized [id number] Authorized 01/27/2023 01/26/2026 1 1 Encounter Details Date Type Department Care Team (Late st Contact Info) Description 02/27/2023 10:00 AM CDT Nurse Only Department of Family Medicine, [facility], in [place], [place] [address] [place] [address] Tomasa Mijares L.P.NRiley [address] [place] [phone] Nurse Visit (BP & weight check for [...] declined 09/11/2022 How often do you attend rastafari or zoroastrianism serv ices? Patient declined 09/11/2022 Do you belong to any clubs o r organizations such as rastafari groups, unions, fraternal or athletic groups, or [...] Answer Date Recorded PHQ-2 Score 0 10/09/2022 [facility] of Occupat ional Health - Occupational [...] your living situation today? I have a [facility] place to live 01/01/2023 Education Answer Date Recorded What is the highest level of school you have completed or the highest degree you have received? Associate degree: occupational, technical, or vocational program 03/12/2019 Sex and Gender Information Value Date Recorded Sex Assigned at Female 09/11/2022 8:42 PM CDT Gender Identity Female 05/06/2017 10:05 AM STATISTICAL METHODS TEACHER Sexual Orientation Choose not to disclose 2022 [...] Patient would like their refill sent to [facility] pharmacy in [place]. documented in this encounter Plan of Treatment Not on file documented as of this encounter Visit Diagnoses Diagnosis Body Mass Index 32.0 To 32.9 Adult- Primary documented in this encounter Additional Health Concerns Assessment Noted Time PHQ-9 Depression Total Score: 7 08/20/19 20 11:28 AM STATISTICAL METHODS TEACHER documented as of this encounter Care Teams Scrum Coach Relationship Specialty Start Date End Date Seema Reina P.A.-C. [address] [phone] PCP - General 09/07/20 documented as of this encounter
--- OUTSIDE RECORDS SUMMARY | 2023-07-16 06:05 | XMS_ITS | Encounter Summary ---
Author Name Unknown Organization [facility] Address [address] [place] [address] Care Team Providers Care Mining Support Worker Name Role Phone Seema Reina P.A.-C. Primary Care Provider +1- [phone] Reason for Referral * Outpatient (Routine) - Authorized Specialty Diagnoses / Procedures Referred By Contashish t Referred To Contact Seema Reina P.A.-C. [address] [place] [address] [facility] Referral ID Status Reason Start Date Expiration Date V isits Requested Visits Authorized [id number] Authorized 02/27/2023 02/26/2026 1 1 Reason for Visit * Reason Onset Date Comments Med Refill 02/27/2023 Encounter Details Date Type Department Care Team (Late st Contact Info) Description 02/27/2023 Clinical Communication Department of Family Medicine, [facility], in [place], [place] [address] [address] Seema Reina P.A.-C. [address], [place] [address] Med Refill Social History Tobacco [...] Answer Date Recorded PHQ-2 Score 0 10/09/2022 [facility] of Occupat ional [facility] - Occupational Stress Questionnaire Answer Date [...] CDT Gender Identity Female 05/06/2017 10:05 AM DATA ANALYSIS MANAGER Sexual Orientation Choose not to disclose [...] Patient would like their refill sent to [facility] pharmacy in [place]. documented in this encounter Plan of Treatment Scheduled Referrals Name Type Priority Associated Diagnoses Orde r Schedule Primary Care nurse visit (clinic) - [facility] Region; BP check, Weight check (adult); BP check only (HEALTH ASSOCIATE) Outpatient Referral Routine Expected: 03/29/2023 (Approximate), Expires: 05/29/2024 documented as of this encounter Visit Diagnoses Diagnosis Body Mass Index 32.0 To 32.9 Adult documented in this encounter Additional Health Concerns Assessment Noted Time PHQ-9 Depression Total Score: 7 08/20/19 20 11:28 AM DATA ANALYSIS MANAGER documented as of this encounter Care Teams Mining Support Worker Relationship Specialty Start Date End Date Seema Reina P.A.-C. [address] [place] [address] PCP - General 09/07/20 documented as of this encounter
--- OUTSIDE RECORDS SUMMARY | 2023-07-16 06:05 | XMS_ITS | Encounter Summary ---
Author Name Unknown Organization [facility] Address [address] [place] [address] Care Team Providers Care Sandwich Machine Operator Name Role Phone Seema Reina P.A.-C. Primary Care Provider +1- [phone] Encounter Details Date Type Department Care Team (Late st Contact Info) Description 11/27/2022 Clinical Communication Pharmacy Prior Auth [facility] [phone] Brett Magana Social History Tobacco Use Types [...] How often do you attend mandaen or faith serv ices? Patient declined 09/11/2022 Do you [...] Answer Date Recorded PHQ-2 Score 0 10/09/2022 [facility] Occupat ional Health - Occupational [...] place to sleep or slept in a [facility] (including now)? Patient refused 09/11/2022 Depression Answer [...] CDT Gender Identity Female 05/06/2017 10:05 AM CHEMICAL STRENGTH TESTER Sexual Orientation Choose not to disclose 2022 8:42 PM CDT documented as of this encounter Plan of Treatment Not on file documented as of this encounter Visit Diagnoses Not on filedocumented in this encounter Additional Health Concerns Assessment Noted Time PHQ-9 Depression Total Score: 7 08/20/19 20 11:28 AM CHEMICAL STRENGTH TESTER documented as of this encounter Care Teams Sandwich Machine Operator Relationship Specialty Start Date End Date Seema Reina P.A.-C. [address] [place] [phone] PCP - General 09/07/20 documented as of this encounter
--- OUTSIDE RECORDS SUMMARY | 2023-07-16 06:05 | XMS_ITS | Encounter Summary ---
Author Name Unknown Organization [facility] Address [address] [place] [address] Care Team Providers Care Access Nurse Name Role Phone Seema Reina P.A.-C. Primary Care Provider +1- [phone] Reason for Referral * Outpatient (Routine) - Authorized Specialty Diagnoses / Procedures Referred By Contashish t Referred To Contact Seema Reina P.A.-C. [address] [place] [address] [facility] Referral ID Status Reason Start Date Expiration Date V isits Requested Visits Authorized [id number] Authorized 01/27/2023 01/26/2026 1 1 Reason for Visit * Reason Onset Date Comments Blood Pressure Check 01/24/2023 Weight Check 01/24/2023 Encounter Details Date Type Department Care Team (Latest Contact Info) Description 01/24/2023 Clinical Communication Department of Family Medicine, [facility] [place], in [place], [place] [address] [place] [address] Seema Reina P.A.-C. [address] [place] [address] Blood Pressure Check; Weight Check [...] declined 09/11/2022 How often do you attend restoration or jew serv ices? Patient declined 09/11/2022 Do you belong to any clubs o r organizations such as restoration groups, unions, fraternal or athletic groups, or [...] Answer Date Recorded PHQ-2 Score 0 10/09/2022 [facility] - Occupational Stress Questionnaire Answer Date [...] your living situation today? I have a [facility] place to live 01/01/2023 Education Answer Date Recorded What is the highest level of school you have completed or the highest degree you have received? Associate degree: occupational, technical, or vocational program 03/12/2019 Sex and Gender Information Value Date Recorded Sex Assigned at Female 09/11/2022 8:42 PM CDT Gender Identity Female 05/06/2017 10:05 AM ORTHOPEDIC SHOE FITTER Sexual Orientation Choose not to disclose 03/22/ [...] (clinic) - [facility] Region; BP check, Weight check (adult); BP check only (HYDROELECTRIC PRODUCTION TECHNICIAN) Outpatient Referral Routine Expected: 02/27/2023 (Approximate), Expires: 04/29/2024 documented as of this encounter Visit Diagnoses Diagnosis Body Mass Index 32.0 To 32.9 Adult- Primary documented in this encounter Additional Health Concerns Assessment Noted Time PHQ-9 Depression Total Score: 7 08/20/19 20 11:28 AM ORTHOPEDIC SHOE FITTER documented as of this encounter Care Teams Access Nurse Relationship Specialty Start Date End Date Seema Reina P.A.-C. [address] [place] [phone] PCP - General 09/07/20 documented as of this encounter
--- OUTSIDE RECORDS SUMMARY | 2023-07-16 06:05 | XMS_ITS | Encounter Summary ---
Author Name Unknown Organization [facility] Address [address] [place] [address] Care Team Providers Care Grain Manager Name Role Phone Seema Reina P.A.-C. Primary Care Provider +1- [phone] Encounter Details Date Type Department Care Team (Late st Contact Info) Description 12/09/2022 Clinical Communication Department of Family Medicine, [facility], in [place], [place] [address] [address] Seema Reina P.A.-C. [address] [place] [address] Social History Tobacco Use Types [...] How often do you attend anabaptism or synagogue serv ices? Patient declined 09/11/2022 [...] Answer Date Recorded PHQ-2 Score 0 10/09/2022 [facility] of Occupat ional Health - Occupational [...] your living situation today? I have a [facility] place to live 01/01/2023 Education Answer Date Recorded What is the highest level of school you have completed or the highest degree you have received? Associate degree: occupational, technical, or vocational program 03/12/2019 Sex and Gender Information Value Date Recorded Sex Assigned at Female 09/11/2022 8:42 PM CDT Gender Identity Female 05/06/2017 10:05 AM SIZE WORKER Sexual Orientation Choose not to disclose [...] yes The following references were used: provider Seema Reina PA-C * Telephone Encounter - Seema [...] Total Score: 7 08/20/19 20 11:28 AM SIZE WORKER documented as of this encounter Care Teams Grain Manager Relationship Specialty Start Date End Date Seema Reina P.A.-C. [address] [place] [address] PCP - General 09/07/20 documented as of this encounter
--- OUTSIDE RECORDS SUMMARY | 2023-07-16 06:05 | XMS_ITS ---
Author Name Unknown Organization [facility] Address [address] [place] [address] Care Team Providers Care Caster Helper Name Role Phone Unavailable Unavailable Unavailable Surgery Details Not on file Complications Check Surgery Details section. Procedure Estimated Blood Loss Check Surgery Details section. Procedure Findings Check Surgery Details section. Procedure Specimens Taken Check Surgery Details section.
--- OUTSIDE RECORDS SUMMARY | 2023-07-16 06:05 | XMS_ITS | Encounter Summary ---
Author Name Unknown Organization [facility] Address [address] [place] [address] Care Team Providers Care Respiratory Coordinator Name Role Phone Seema ReinaARiley-Zelalem Primary Care Provider +1- [phone] Reason for Visit * Reason Comments Pre-op Exam Endometriosis with Roxy Terrell on 07/10/23 * Appointment Request (Routine) - Closed Specialty Diagnoses / Procedures Referred By Heriberto jewell Referred To Contact Family Medicine Referral ID Status Reason Start Date Expiration Date Visits Re quested Visits Authorized [id number] Closed 06/05/2023 06/04/2024 1 1 Encounter Details Date Type Department Care Team (Late st Contact Info) Description 06/25/2023 12:00 PM SHORTHAND REPORTER Office Visit Department of Family Medicine, [facility], in [place], [place] [address] [place] [address] Seema Reina P.A.-Zelalem [address] [place] [address] Preoperative Exam (Primary Dx); Asthma [...] declined 09/11/2022 How often do you attend uatsdin or jainism serv ices? Patient declined 09/11/2022 Do you belong to any clubs o r organizations such as uatsdin groups, unions, fraternal or athletic groups, or [...] your living situation today? I have a [facility] place to live 01/01/2023 Education Answer Date Recorded What is the highest level of school you have completed or the highest degree you have received? Associate degree: occupational, technical, or vocational program 03/12/2019 Sex and Gender Information Value Date Recorded Sex Assigned at Female 09/11/2022 8:42 PM CDT Gender Identity Female 05/06/2017 10:05 AM SHORTHAND REPORTER Sexual Orientation Choose not to disclose 2022 8:42 PM CDT documented as of this encounter Last Filed Vital Signs Vital Sign Reading Time Taken Comments Blood Pressure 106/74 06/25/2023 11:52 AM SHORTHAND REPORTER Pulse 85 06/25/2023 11:52 AM SHORTHAND REPORTER Temperature - - Respiratory Rate - - Oxygen Saturation - - Inhaled Oxygen Concentration - - Weight 92 kg (202 lb 13.2 oz) 06/25/2023 11:52 A M SHORTHAND REPORTER Height 172.8 cm (5' 8.03) 06/25/2023 11:52 AM Nichelle Body Mass Index 30.81 06/25/2023 11:52 AM SHORTHAND REPORTER documented in this encounter Patient Instructions * Patient Instructions* Seema Reina P.A.-C. - 06/25/2023 12:00 PM SHORTHAND REPORTER No aspirin-containing products or over the counter vitamins/ supplements 7 days prior to procedure or ibuprofen 24 hours before surgery. THAND REPORTER documented in this encounter Progress Notes * Seema Reina P.A.-C. - 06/25/2023 12:00 PM CST FAMILY MEDICINE PREOPERATIVE EXAM: PROPOSED SURGERY DATE: 07/10/2023. SURGEON: Dr. Terrell. PROPOSED SURGERY: Lap ovarian cystectomy, D&C and ablation. LOCATION: [facility] SUBJECTIVE HISTORY OF PRESENT ILLNESS Earnestine Ulloa [...] agreement with this plan. Seema Reina P.A.-C. THAND REPORTER documented in this encounter Plan of Treatment Not on file documented as of this encounter Visit Diagnoses Diagnosis Preoperative Exam- Primary Asthma Mild Intermittent (HCC) documented in this encounter Additional Health Concerns Assessment Noted Time PHQ-9 Depression Total Score: 7 08/20/19 20 11:28 AM SHORTHAND REPORTER documented as of this encounter Care Teams Respiratory Coordinator Relationship Specialty Start Date End Date Seema Reina P.A.-C. [address] [phone] PCP - General 09/07/20 documented as of this encounter
--- OUTSIDE RECORDS SUMMARY | 2023-07-16 06:06 | XMS_ITS | Encounter Summary ---
Author Name Unknown Organization [facility] Address [address] [place] [address] Care Team Providers Care Blood Tester Fowl Name Role Phone Seema Reina P.A.-C. Primary Care Provider +1- [phone] Reason for Referral * Outpatient (Routine) - Closed Specialty Diagnoses / Procedures Referred By Contac t Referred To Contact Cardiovascular Disease Diagnoses Prolonged QT Interval Procedures Cardiopulmonary (VO2) Exercise Test Seema Reina P.A.-C. [address] [place] [address] [facility] Region Referral ID Status Reason Start Date Expiration Date Visits Re quested Visits Authorized [id number] Closed 11/14/2021 11/14/2022 1 1 Reason for Visit * Outpatient (Routine) - Closed Specialty Diagnoses / Procedures Referred By Contac t Referred To Contact Cardiovascular Disease Diagnoses Prolonged QT Interval Procedures Cardiopulmonary (VO2) Exercise Test Seema Reina P.A.-C. [address] [place] [address] [facility] Region Referral ID Status Reason Start Date Expiration Date Visits Re quested Visits Authorized [id number] Closed 11/14/2021 11/14/2022 1 1 Encounter Details Date Type Department Care Team (Latest Contact Info) Description 09/16/2022 7:30 AM CDT - 09/16/2022 8:21 AM CDT Hospital Encounter Department of Cardiovascular Diseases in [place], [place] [address] [place] [address] Seema Reina P.A.-C. [address] [place] [address] Prolonged QT Interval Discharge Disposition: [...] How often do you attend baptist or druze serv ices? Patient declined 09/11/2022 Do you [...] Answer Date Recorded PHQ-2 Score 1 08/20/2019 [facility] [place] of Occupat ional Health - Occupational Stress [...] place to sleep or slept in a senior care (including now)? Patient refused 09/11/2022 Depression Answer [...] CDT Gender Identity Female 05/06/2017 10:05 AM SWITCH TENDER Sexual Orientation Choose not to disclose 2022 [...] Total Score: 7 08/20/19 20 11:28 AM SWITCH TENDER documented as of this encounter Care Teams Blood Tester Fowl Relationship Specialty Start Date End Date Seema Reina P.A.-C. [address] [address] PCP - General 09/07/20 documented as of this encounter
--- OUTSIDE RECORDS SUMMARY | 2023-07-16 06:06 | XMS_ITS | Encounter Summary ---
Author Name Unknown Organization [facility] Address [address] [place] [address] Care Team Providers Care Research Software Engineer Name Role Phone Seema Reina.A.-CRiley Primary Care Provider [phone]- [phone] Reason for Referral * Outpatient (Routine) - Closed Specialty Diagnoses / Procedures Referred By Contac t Referred To Contact Diagnoses Prolonged QT Interval Procedures Long QT Syndrome Gene Panel MS MOPATH PROCEDURE LEVEL 4 MS MOPATH PROCEDURE LEVEL 7 MS MOPATH PROCEDURE LEVEL 7 MS MOPATH PROCEDURE LEVEL 8 MS UNLISTED PROC MOPATH Derrick Ríos M.D., Ph.D. [address] [place] [address] [facility] Referral ID Status Reason Start Date Expiration Date Visits Re quested Visits Authorized [id number] Closed 09/16/2022 10/17/2022 1 1 Reason for Visit * Outpatient (Routine) - Closed Specialty Diagnoses / Procedures Referred By Contact Referred To Contact Cardiovascular Diseases / Cardiovascular Disease Diagnoses Prolonged QT Interval Seema Reina, P.A.-C. [address] [place] [address] [facility] Referral ID Status Reason Start Date Expiration Date Visits Re quested Visits Authorized [id number] Closed 11/14/2021 11/14/2022 1 1 Encounter Details Date Type Department Care Team (Latest Contact Info) Description 09/16/2022 1:00 PM CDT Comprehensive Visit Department of Cardiovascular Medicine in [place], [place] [address] [place] [address] Derrick Ríos M.D., Ph.D. [address] [place] [address] Prolonged QT Interval Social History Tobacco Use [...] declined 09/11/2022 How often do you attend protestant or zoroastrianism serv ices? Patient declined 09/11/2022 Do you belong to any clubs o r organizations such as protestant groups, unions, fraternal or athletic groups, or [...] Answer Date Recorded PHQ-2 Score 1 08/20/2019 [facility] - Occupational Stress [...] place to sleep or slept in a alf (including now)? 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 Ulloa in the [facility] this afternoon. She is [...] merited. - No specific follow-up in the [facility] has been arranged. [...] Syndrome Gene Panel (09/16/2022 1:34 PM CDT) [facility] Signature Test Description Evaluation of 10 genes associated with long QT syndrome (LQTS) 10/15/2022 7:35 PM CDT DTL Specimen WB Whole Blood 10/15/2022 7:35 PM CDT DTL Genes Analyzed [id number], CALM1, CALM2, CALM3, KCNE1, KCNH2, KCNJ2, KCNQ1, SCN5A and TRDN 10/15/2022 7:35 PM CDT DTL Disclaimer Clinical Correlations An online research opportunity called [employer] ([email or web address]) , a project of [employer], is available for the recipient of this genetic test. This patient registry collects de-identified genetic and health information to advance the knowledge of genetic variants. [facility] is a collaborator of [employer]. This may not be applicable for all [...] assistance in the interpretation of these results, [facility] Laboratory genetic counselors can be contacted at [...] this test. Reclassification of Variants Policy See www.AUTOFACTs. com (TEST ID LQTSG) for information regarding the laboratory's policy for reclassification of variants. Variant Evaluation Variant curation is performed using published ACMG-AMP recommendations as a guideline. Other gene-specific guidelines may also be considered. Variants classified as benign or likely benign are not reported. Results from in silico evaluation tools may tire changer time and should be interpreted with caution and professional clinical judgment. TEST CLASSIFICATION This test was developed and its performance characteristics determined by [facility] in a manner consistent with CLIA requirements. This test has not been cleared or approved by the U.S. Food and Drug Administration. 10/15/2022 7:35 PM CDT DTL Released By Skyler Hudson M.D. 10/15/2022 7:35 PM CDT DTL Result Summary Negative 10/15/2022 7:35 PM CDT DTL Result No reportable variants were detected. 10/15/2022 7:35 PM CDT DTL Method Next generation sequencing (NGS) and/or Stem sequencing was performed to test for the [...] methodologies based on internal laboratory criteria. See [email or web address] (TEST ID LQTSG) for details regarding genes [...] Ríos M.D., Ph.D. LAB GENETI C TESTING [facility] - [facility] [address] [place] [address], [facility] DTL [address] [place] [address] documented in this encounter Visit Diagnoses Diagnosis Prolonged QT Interval documented in this encounter Additional Health Concerns Assessment Noted Time PHQ-9 Depression Total Score: 7 08/20/19 20 11:28 AM POWDER WORKER TNT documented as of this encounter Care Teams Research Software Engineer Relationship Specialty Start Date End Date Seema Reina P.A.-C. [address] [place] [phone] PCP - General 09/07/20 documented as of this encounter
--- OUTSIDE RECORDS SUMMARY | 2023-07-16 06:06 | XMS_ITS | Encounter Summary ---
Author Name Unknown Organization [facility] Address [address] [place] [address] Care Team Providers Care Case Folder Name Role Phone Seema Reina P.A.-C. Primary Care Provider [phone]- [phone] Reason for Referral * Outpatient (Routine) - Closed Specialty Diagnoses / Procedures Referred By Contac t Referred To Contact Diagnoses Prolonged QT Interval Procedures Echo Transthoracic (TTE) Seema Reina P.A.-C. [address] [place] [address] [facility] Referral ID Status Reason Start Date Expiration Date Visits Re quested Visits Authorized [id number] Closed 09/10/2022 11/14/2023 1 1 Reason for Visit * Outpatient (Routine) - Closed Specialty Diagnoses / Procedures Referred By Heriberto jewell Referred To Contact Diagnoses Prolonged QT Interval Procedures Echo Transthoracic (TTE) Seema Reina P.A.-C. [address] [place] [phone] [facility] Referral ID Status Reason Start Date Expiration Date Visits Re quested Visits Authorized [id number] Closed 09/10/2022 11/14/2023 1 1 Encounter Details Date Type Department Care Team (Latest Contact Info) Description 09/16/2022 8:22 AM CDT - 09/16/2022 1:26 PM CDT Hospital Encounter Department of Cardiovascular Diseases in [place], [place] [address] [place] [address] Seema Reina P.A.-C. [address] [place] [phone] Prolonged QT Interval Discharge Disposition: Home or [...] declined 09/11/2022 How often do you attend holiness or shinto serv ices? 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 [address] [phone] PCP - General 09/07/20 documented as of this encounter
--- OUTSIDE RECORDS SUMMARY | 2023-07-16 06:06 | XMS_ITS | Encounter Summary ---
Author Name Unknown Organization [facility] Address [address] [place] [address] Care Team Providers Care Production Or Plant Engineer Name Role Phone Seema Reina P.A.-C. Primary Care Provider +1- [phone] Reason for Referral * Outpatient (Routine) - Closed Specialty Diagnoses / Procedures Referred By Contac t Referred To Contact Diagnoses Prolonged QT Interval Procedures Long QT Syndrome Gene Panel RI MOPATH PROCEDURE LEVEL 4 RI MOPATH PROCEDURE LEVEL 7 RI MOPATH PROCEDURE LEVEL 7 RI MOPATH PROCEDURE LEVEL 8 RI UNLISTED PROC Derrick Mckenzie M.D., Ph.D. [address] [place] [address] [facility] Referral ID Status Reason Start Date Expiration Date Visits Re quested Visits Authorized [id number] Closed 09/16/2022 10/17/2022 1 1 Reason for Visit * Outpatient (Routine) - Closed Specialty Diagnoses / Procedures Referred By Contac t Referred To Contact Diagnoses Prolonged QT Interval Procedures Long QT Syndrome Gene Panel RI MOPATH PROCEDURE LEVEL 4 RI MOPATH PROCEDURE LEVEL 7 RI MOPATH PROCEDURE LEVEL 7 RI MOPATH PROCEDURE LEVEL 8 RI UNLISTED PROC Derrick Mckenzie M.D., Ph.D. [address] [place] [address] [facility] Referral ID Status Reason Start Date Expiration Date Visits Re quested Visits Authorized [id number] Closed 09/16/2022 10/17/2022 1 1 Encounter Details Date Type Department Care Team (Latest Contact Info) Description 09/16/2022 1:27 PM CDT - 09/16/2022 11:59 PM CDT Hospital Encounter Department of Laboratory Medicine and Pathology, [facility] in [place], [place] [address] [place] [phone] Derrick Ríos M.D., Ph.D. [address] [place] [phone] Prolonged QT Interval Discharge Disposition: Home or [...] declined 09/11/2022 How often do you attend faith or synagogue serv ices? Patient declined 09/11/2022 Do you belong to any clubs o r organizations such as faith groups, unions, fraternal or athletic groups, or [...] Answer Date Recorded PHQ-2 Score 1 08/20/2019 [facility] of Occupat ional Health - Occupational [...] place to sleep or slept in a longterm (including now)? 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 This patient registry collects de-identified genetic and health information to advance the knowledge of genetic variants. [facility] is a collaborator of [employer]. This may not be applicable for all [...] assistance in the interpretation of these results, [facility] Laboratory genetic counselors can be contacted [...] this test. Reclassification of Variants Policy See www.[employer]. Crowdbooster (TEST ID LQTSG) for information regarding the laboratory's policy for reclassification of variants. Variant Evaluation Variant curation is performed using published ACMG-AMP recommendations as a guideline. Other gene-specific guidelines may also be considered. Variants classified as benign or likely benign are not reported. Results from in silico evaluation tools may exchange operator time and should be interpreted with caution and professional clinical judgment. TEST CLASSIFICATION This test was developed and its performance characteristics determined by [facility] in a manner consistent with CLIA [...] methodologies based on internal laboratory criteria. See www.[employer]. Crowd[employer]oster (TEST ID LQTSG) for details regarding genes [...] Ríos M.D., Ph.D. LAB GENETI C TESTING [facility] [address] [place] [address], [facility] DTL [address] [place] [address] documented in this encounter Visit Diagnoses Diagnosis Prolonged QT Interval documented in this encounter Additional Health Concerns Assessment Noted Time PHQ-9 Depression Total Score: 7 08/20/19 20 11:28 AM FORGE PRESS OPERATOR documented as of this encounter Care Teams Production Or Plant Engineer Relationship Specialty Start Date End Date Seema Reina P.A.-C. [address] [phone] PCP - General 09/07/20 documented as of this encounter
--- OUTSIDE RECORDS SUMMARY | 2023-07-16 06:06 | XMS_ITS | Clinical Summary ---
Author Name Unknown Organization [facility] Address [place], [place] [address] Care Team Providers Care Printing Roller Handler Name Role Phone Pcp, No Primary Care [...] Department Care Team Description 06/04/2023 Lab Requisition [facility] [phone] Nicol Terrell MD from Last 3 Months [...] TRACKING EVENT Routine 06/03/2023 12 :00 PM AIR AND HYDRONIC BALANCING TECHNICIAN PATH TISSUE EXAM Routine 06/03/2023 12:0 0 PM AIR AND HYDRONIC BALANCING TECHNICIAN from Last 3 Months Results * LAB TRACKING EVENT (06/03/2023 12:00 PM AIR AND HYDRONIC BALANCING TECHNICIAN) Other (Other) Client Collect / Unknown 06/03/2023 12:00 PM AIR AND HYDRONIC BALANCING TECHNICIAN 06/04/2023 5:57 PM AIR AND HYDRONIC BALANCING TECHNICIAN Nicol Terrell MD LAB BILL ONLY [facility] [address] [place] [address], * PATH TISSUE EXAM (06/03/2023 12:00 PM AIR AND HYDRONIC BALANCING TECHNICIAN) Case Report Pathology Report ?Case: [id number] ? Authorizing Provider: ??Nicol Terrell MD ?? Collected: ? 06/03/2023 1200 ? Ordering Location: ? [facility] ?Received: ?06/04/2023 1824 ? Pathologist: ? Jose Smith MD ? Specimen: ?Endometrial ? 06/06/2023 8:57 AM AIR AND HYDRONIC BALANCING TECHNICIAN [facility]C [facility]TRAL LABORATORY Final Diagnosis A) ENDOMETRIUM, BIOPSY: 1. Secretory endometrium 2. Negative for chronic endometritis 3. Negative for hyperplasia, atypia, and malignancy 06/06/2023 8:57 AM AIR AND HYDRONIC BALANCING TECHNICIAN [facility] [employer] LABORATORY-C ENTRAL LABORATORY Clinical Information Abnormal uterine bleeding 06/06/2023 8:57 AM AIR AND HYDRONIC BALANCING TECHNICIAN [facility] LABORATORY-C ENTRAL LABORATORY Gross Description A) Received in formalin, labeled with the patient's name and date of , is a 2.2 x 1.0 x 0.3 cm aggregate of calabrese mucosa. ??The specimen is entirely submitted in 1 cassette. EKW 06/04/2023 06/06/2023 8:57 AM AIR AND HYDRONIC BALANCING TECHNICIAN [facility] LABORATORY-C ENTRAL LABORATORY Microscopic Description The final diagnosis is based on microscopic examination of appropriate sections of all specimens. 06/06/2023 8:57 AM AIR AND HYDRONIC BALANCING TECHNICIAN [facility] [employer] LABORATORY-C ENTRAL LABORATORY Additional Information Interpreted at [facility] Central Laboratory - [address] [place] [id number] 06/06/2023 8:57 AM AIR AND HYDRONIC BALANCING TECHNICIAN [facility] [employer] [facility] Other SPECIMEN FROM ENDOMETRIUM / Unknown 06/03/2023 12:00 PM AIR AND HYDRONIC BALANCING TECHNICIAN 06/04/2023 6:24 PM AIR AND HYDRONIC BALANCING TECHNICIAN Nicol Terrell MD PATHOLOGY/CYTOLOG Y [facility] [address] [place] [address], from Last 3 Months Advance Directives Latest [...] 9:05 PM 05/10/2013 12:36 AM Care Teams Printing Roller Handler Relationship Specialty Start Date End Date Pcp, No . PCP - General 11/06/21
[2023-07-16] MEDS: LACTATED RINGERS 1000 ML 1,000 ML 100 ML IV (06:35)
[2023-07-16] MEDS: SODIUM CHLORIDE 0.9 % (FLUSH) 10 ML SYRINGE IVF (06:36)
[2023-07-16 06:37] LABS: Hemoglobin* 10.8 gm/dL (12.0-16.0)
[2023-07-16 06:40] LABS: Ur HCG Qualitative* Negative (Negative)
--- NOTE | 2023-07-16 07:28 | W.PM.H&PU ---
History & Physical Update History & Physical Update H&P Reviewed and patient assessed: No changes noted H&P Updates: Preoperative diagnosis: Endometriosis, menorrhagia, umbilical nodule Planned procedures: Hysteroscopy, dilation and curettage, Shyanne endometrial ablation Laparoscopy with fulguration and excision of endometriosis Excision of umbilical lesion Physical exam: General: No acute distress Psych: Alert and oriented x3, full affect HEENT: Normocephalic, atraumatic Labs: O positive on 07/10/23 Hb 10.8
[2023-07-16] MEDS: BUPIVACAINE 0.25% 30 ML INJECTION (08:20)
--- NOTE | 2023-07-16 09:07 | W.ANESCHARGE ---
Anesthesia Charges Start Date/Time Anesthesia Start Date: 07/16/23 Anesthesia Start Time: 07:24 Stop Date/Time Anesthesia Stop Date: 07/16/23 Anesthesia Stop Time: 09:01
--- NOTE | 2023-07-16 09:14 | P.GYNPRC_ITS ---
Procedure Note Date of procedure: 07/16/23 Procedure Description: PREOPERATIVE DIAGNOSIS: Menorrhagia with anemia Pelvic pain with history of endometriosis Periumbilical nodule POSTOPERATIVE DIAGNOSIS: Menorrhagia with anemia Pelvic pain with no definite endometriosis on laparoscopy Small simple left ovarian cyst Periumbilical nodule PROCEDURE: Hysteroscopy, dilation and curettage Shyanne endometrial ablation Laparoscopy with biopsy of left ovarian cyst Excision of periumbilical nodule SURGEON: Nicol Terrell MD LEAD INJECTION MOLD TECHNICIAN: TATIANA Pacheco ANESTHESIA: General IV FLUIDS: 1000 cc URINE OUTPUT: 500 cc EBL: 10 cc SALINE DEFICIT: 180 cc FINDINGS: 1. Upon pelvic exam under anesthesia, the cervix showed circumferential ectropion with a flattened appearance. Vulva and vagina were normal in appearance. Uterus was mobile and anteverted, of normal size and texture. There were no palpable adnexal masses. 2. Upon hysteroscopy, survey of the endocervix was normal. Survey of the endometrial cavity revealed a normal shape with uniform appearance of the endometrium. Bilateral tubal ostia were normal in appearance. Sounded depth was 9 cm, and cervical length 3 cm. 3. Upon laparoscopy, survey of the upper abdomen revealed a normal appearance to the inferior edge of the liver. There was an omental adhesion to the right of the umbilicus. Bowels were grossly normal appearance, as was the appendix. Survey of the pelvis revealed normal appearance to the uterus. Bilateral tubes were surgically absent. Ovaries were normal in appearance, with a small (approximately 2 cm) simple left ovarian cyst that spilled clear fluid upon incidental rupture. The cul-de-sac and bladder reflection were normal in appearance. The right ovarian fossa was mildly scarred but without any active endometriosis visualized. There was a 1 mm nodule on the sigmoid serosa at the base of an epiploica that was soft and varied in color from dark brown to calabrese, not completely consistent in appearance with endometriosis. 4. There was a 2 mm nodule along the leftward aspect of previous subumbilical incision. COMPLICATIONS: None PROCEDURE IN DETAIL: Patient was taken to the operating room with IV running. She was positioned in dorsal lithotomy position with her legs fully supported in Yellofin stirrups. General anesthesia was administered. She was prepped and draped in the usual sterile fashion. Exam under anesthesia was performed for the above-noted findings. Mendoza catheter was inserted. Speculum was inserted. Cervix visualized and grasped along the anterior lip with a single-tooth tenaculum. Cervix was serially dilated to accommodate the TRUCLEAR hysteroscope. This was assembled with saline inflow and outflow in place. The line was flushed of bubbles. The hysteroscope was advanced through the cervix into the endometrial cavity for the above noted findings. The tissue morcellator was then inserted through the operating channel. Window lock was performed. Under direct visualization, the endometrial cavity was circumferentially curetted with the tissue morcellator. The hysteroscope and morcellator were then removed from the uterus. Uterine and cervical measurements were then performed with uterine sound, with findings as noted above. Cervix was serially dilated to accommodate the Shyanne handheld device. The device was then powered on. The hand-held device was inserted through the cervix and the array was deployed. Appropriate uterine width was noted. The intracervical balloon was then inflated. The pedal was pushed to activate to the cavity integrity test, both of which were passed. The ablation cycle then ensued. Thereafter, the intracervical balloon was deflated, and the device was retracted from the uterus. Tenaculum was removed from the anterior lip of cervix. Hemostasis was noted. Single-toothed uterine manipulator was then inserted and attached to anterior lip of cervix. Speculum was removed. Patient's legs were placed in neutral position. Attention was turned to patient's abdomen. The infraumbilical area was infi ltrated with small amount of Marcaine. An infraumbilical incision was made with a scalpel and carried through to the underlying layer of fascia with a hemostat. The 5 mm Fios Kii trocar was assembled with laparoscope within, and insufflator attached. While tenting up the abdomen manually, the trocar was passed through the anterior abdominal wall into the peritoneal cavity. Trocar was removed. Pneumoperitoneum was achieved. Survey of abdomen and pelvis revealed the above- noted findings. Only 1 additional port site was required to fully visualize the pelvis. This was placed in the patient's left lower quadrant, through a 5 mm skin incision, under direct visualization without complication. Upon closer inspection of the left ovary, the apparent functional cyst on its surface was ruptured, releasing clear fluid. The cyst wall was removed with gentle traction and sent to pathology for further analysis. Hemostasis was noted. The above described lesion along the serosa of the sigmoid colon was examined closely with grasper, but was too closely associated with the serosa to excise. All instruments were removed from the 2 ports. Pneumoperitoneum was released. The balloon tips of the ports were deflated and the ports were removed. The skin of each port site was closed with a subcuticular stitch of 4-0 Monocryl. Surgical glue was applied above this. The above described nodule slightly to the left and lateral to the umbilicus was grasped with Adson's and excised with scalp full. It was sent to pathology for analysis. The skin edges around this were closed with Monocryl. Patient's legs were placed back in lithotomy position. The uterine manipulator was removed and hemostasis of the cervix was noted. Mendoza catheter was removed. Patient tolerated procedure well. She was taken to recovery area in stable condition.
[2023-07-16] MEDS: LACTATED RINGERS 1000 ML 1,000 ML 35 ML IV (09:20)
[2023-07-16] MEDS: ONDANSETRON 2 MG/ML inj 4 MG IVP (09:25)
[2023-07-16] MEDS: fentaNYL 100 MCG/2 ML inj 50 MCG IVP (09:27)
--- NOTE | 2023-07-16 10:56 | W.ANESCHARGE ---
Anesthesia Charges Start Date/Time Anesthesia Start Date: 07/16/23 Anesthesia Start Time: 07:24 Stop Date/Time Anesthesia Stop Date: 07/16/23 Anesthesia Stop Time: 09:01
== END 2023-07-16 10:43 | disposition home or self-care (01) ==
PROVIDERS: Visit Provider Obstetrics & Gynecology
PROC: (CPT 49320; principal; 2023-07-16 07:15)
DX: N80.9 Endometriosis, unspecified (principal); N83.292 Other ovarian cyst, left side; N92.0 Excessive and frequent menstruation with regular cycle; R22.2 Localized swelling, mass and lump, trunk; D50.0 Iron deficiency anemia secondary to blood loss (chronic); R10.2 Pelvic and perineal pain
CPT/HCPCS: 58563; 58662; 22902; 00840; 36415; 81025; 85018; 86850; 86900; 86901; 88305; 88341; 88342; J0665; J1100; J1885; J2250; J2405; J2704; J2710; J3010; J7120

== ENCOUNTER 2023-08-06 14:19 | Outpatient (CLI) | payer BC, OTHER, SELFPAY ==
--- OUTSIDE RECORDS SUMMARY | 2023-08-07 10:51 | XMS_ITS | Encounter Summary ---
Author Name Unknown Organization [facility] Address [address] [place] [address] Care Team Providers Care Simulation Engineer Name Role Phone Seema Reina P.A.-C. Primary Care Provider +1- [phone] Reason for Visit * Reason Onset Date Comments Abdominal Pain 05/16/2023 Encounter Details Date Type Department Care Team (Late st Contact Info) Description 05/16/2023 Nurse Triage Department of Family Medicine, [facility], in [place], [place] [address] [place] [address] Lynn Mckeon RYvette [address] [place] [address] Abdominal Pain Social History Tobacco Use Types [...] declined 09/11/2022 How often do you attend nondenominational or sabianism serv ices? Patient declined 09/11/2022 Do you belong to any clubs o r organizations such as nondenominational groups, unions, fraternal or athletic groups, or [...] Answer Date Recorded PHQ-2 Score 0 10/09/2022 [facility] of Occupat ional Health - Occupational Stress [...] your living situation today? I have a [facility] place to live 01/01/2023 Education Answer Date Recorded What is the highest level of school you have completed or the highest degree you have received? Associate degree: occupational, technical, or vocational program 03/12/2019 Sex and Gender Information Value Date Recorded Sex Assigned at Female 09/11/2022 8:42 PM CDT Gender Identity Female 05/06/2017 10:05 AM OPTICAL MECHANIC Sexual Orientation Choose not to disclose 2022 8:42 PM CDT documented as of this encounter Miscellaneous Notes * Telephone Encounter - Lynn Mckeon RRileyNRiley - 05/16/2023 7:51 AM OPTICAL MECHANIC Chief Complaint / Reason for Call Patient [...] 1 hour Protocols used: Abdominal Pain - Jcuzgz-HDIOR-PO Care Advice Patient/Caregiver understands and will follow care advice?: Yes, able to teach back GO TO ED NOW: * You need to be seen in the Emergency Department. * Go to the ED at nearest Hospital. * Leave now. Drive carefully. CAL MECHANIC documented in this encounter Plan of Treatment Not on file documented as of this encounter Visit Diagnoses Not on filedocumented in this encounter Additional Health Concerns Assessment Noted Time PHQ-9 Depression Total Score: 7 08/20/19 20 11:28 AM OPTICAL MECHANIC documented as of this encounter Care Teams Simulation Engineer Relationship Specialty Start Date End Date Seema Reina P.A.-C. [address] [place] [address] PCP - General 09/07/20 documented as of this encounter
--- OUTSIDE RECORDS SUMMARY | 2023-08-07 10:51 | XMS_ITS | Encounter Summary ---
Author Name Unknown Organization [facility] Address [address] [place] [address] Care Team Providers Care Head Tennis Professional Name Role Phone Seema Reina P.A.-C. Primary Care Provider +1- [phone] Encounter Details Date Type Department Care Team (Late st Contact Info) Description 04/21/2023 Clinical Communication Department of Family Medicine, [facility], in [place], [place] [address], [place] [address] Seema Reina P.A.-C. [address] [place] [address] Social History Tobacco Use Types [...] declined 09/11/2022 How often do you attend gnosticism or congregational serv ices? Patient declined 09/11/2022 Do you belong to any clubs o r organizations such as gnosticism groups, unions, fraternal or athletic groups, or [...] 10/09/2022 [facility] of Occupat ional Health - [...] your living situation today? I have a [facility] place to live 01/01/2023 Education Answer Date Recorded What is the highest level of school you have completed or the highest degree you have received? Associate degree: occupational, technical, or vocational program 03/12/2019 Sex and Gender Information Value Date Recorded Sex Assigned at Female 09/11/2022 8:42 PM CDT Gender Identity Female 05/06/2017 10:05 AM SOILED LINEN DISTRIBUTOR Sexual Orientation Choose not to disclose 2022 [...] Total Score: 7 08/20/19 20 11:28 AM SOILED LINEN DISTRIBUTOR documented as of this encounter Care Teams Head Tennis Professional Relationship Specialty Start Date End Date Seema Reina P.A.-C. [address] [phone] PCP - General 09/07/20 documented as of this encounter
--- OUTSIDE RECORDS SUMMARY | 2023-08-07 10:51 | XMS_ITS | Referral Summary ---
Author Name Unknown Organization [facility] Address [address] [place] [address] Care Team Providers Care Supervisor Forming Department Name Role Phone Seema Reina P.A.-C. Primary Care Provider +1- [phone] Source Comments Patient records contain information from all sites at [facility]. For routine questions regarding patient records, call [phone] during business hours, M-F 8:00 AM - 5:00 PM Central Time. Record requests for emergency care only can be directed to [phone] at any time.[facility] Encounters Date Type Department Care Team Description 06/25/2023 12:00 PM CREDIT CHECKER Office Visit Department of Family Medicine, [facility], in [place], [place] [address] [place] [address] Seema Reina P.ARiley-CRiley Preoperative Exam (Primary Dx); Asthma Mild Intermittent (HCC) 06/12/2023 Nurse Triage Department of Family Medicine, [facility], in [place], [place] [address] [place] [address] Kellee Obrien RYvette Testing For Upper Respiratory Virus Symptoms 05/16/2023 Nurse Triage Department of Family Medicine, [facility], in [place], [place] [address] [place] [address] Lynn Mckeon R.N. Abdominal Pain from Last 3 Months Allergies Active Allergy [...] of breath. 120 mL 1 05/08/2019 06/25/2024 Active UNABLE TO FIND Take by mouth 2 (two) times a day. Med Name: Orilissa 200 mg 0 Active Active Problems Problem Noted Date Diagnosed [...] How often do you attend christianity or adventism serv ices? Patient declined 09/11/2022 Do you [...] Answer Date Recorded PHQ-2 Score 0 06/25/2023 [facility] of Occupat ional [facility] - Occupational Stress Questionnaire Answer Date [...] CDT Gender Identity Female 05/06/2017 10:05 AM CREDIT CHECKER Sexual Orientation Choose not to disclose 2022 8:42 PM CDT Last Filed Vital Signs Vital Sign Reading Time Taken Comments Blood Pressure 106/74 06/25/2023 11:52 AM CREDIT CHECKER Pulse 85 06/25/2023 11:52 AM CREDIT CHECKER Temperature 35.7 ??C (96.2 ??F) 10/09/2022 9:19 AM CD T Respiratory Rate 18 11/12/2021 6:00 PM CDT Oxygen Saturation 98% 09/16/2022 12:44 PM CDT Inhaled Oxygen Concentration - - Weight 92 kg (202 lb 13.2 oz) 06/25/2023 11:52 A M CREDIT CHECKER Height 172.8 cm (5' 8.03) 06/25/2023 11:[address] Body Mass Index 30.81 06/25/2023 11:52 AM CREDIT CHECKER Plan of Treatment Not on file Care Teams Supervisor Forming Department Relationship Specialty Start Date End Date Seema Reina P.A.-C. [address], [place] [phone] PCP - General 09/07/20
--- OUTSIDE RECORDS SUMMARY | 2023-08-07 10:51 | XMS_ITS | Encounter Summary ---
Author Name Unknown Organization [facility] Address [address] [place] [address] Care Team Providers Care Sponge Maker Name Role Phone Seema ReinaARiley-Zelalem Primary Care Provider +1- [phone] Reason for Visit * Reason Comments Pre-op Exam Endometriosis with Roxy Terrell on 07/10/23 * Appointment Request (Routine) - Closed Specialty Diagnoses / Procedures Referred By Heriberto jewell Referred To Contact Family Medicine Referral ID Status Reason Start Date Expiration Date Visits Re quested Visits Authorized [id number] Closed 06/05/2023 06/04/2024 1 1 Encounter Details Date Type Department Care Team (Late st Contact Info) Description 06/25/2023 12:00 PM BUSINESS APPLICATIONS DEVELOPER Office Visit Department of Family Medicine, [facility], in [place], [place] [address] [place] [address] Seema Reina P.A.-Zelalem [address] [place] [address] Preoperative Exam (Primary Dx); Asthma [...] Answer Date Recorded PHQ-2 Score 0 06/25/2023 [facility] of [...] your living situation today? I have a [facility] place to live 01/01/2023 Education Answer Date Recorded What is the highest level of school you have completed or the highest degree you have received? Associate degree: occupational, technical, or vocational program 03/12/2019 Sex and Gender Information Value Date Recorded Sex Assigned at Female 09/11/2022 8:42 PM CDT Gender Identity Female 05/06/2017 10:05 AM BUSINESS APPLICATIONS DEVELOPER Sexual Orientation Choose not to disclose 2022 8:42 PM CDT documented as of this encounter Last Filed Vital Signs Vital Sign Reading Time Taken Comments Blood Pressure 106/74 06/25/2023 11:52 AM BUSINESS APPLICATIONS DEVELOPER Pulse 85 06/25/2023 11:52 AM BUSINESS APPLICATIONS DEVELOPER Temperature - - Respiratory Rate - - Oxygen Saturation - - Inhaled Oxygen Concentration - - Weight 92 kg (202 lb 13.2 oz) 06/25/2023 11:52 A M BUSINESS APPLICATIONS DEVELOPER Height 172.8 cm (5' 8.03) 06/25/2023 11:52 AM Nichelle Body Mass Index 30.81 06/25/2023 11:52 AM BUSINESS APPLICATIONS DEVELOPER documented in this encounter Patient Instructions * Patient Instructions* Seema Reina P.A.-C. - 06/25/2023 12:00 PM BUSINESS APPLICATIONS DEVELOPER No aspirin-containing products or over the counter vitamins/ supplements 7 days prior to procedure or ibuprofen 24 hours before surgery. NESS APPLICATIONS DEVELOPER documented in this encounter Progress Notes * Seema Reina P.A.-C. - 06/25/2023 12:00 PM CST FAMILY MEDICINE PREOPERATIVE EXAM: PROPOSED SURGERY DATE: 07/10/2023. SURGEON: Dr. Terrell. PROPOSED SURGERY: Lap ovarian cystectomy, D&C and ablation. LOCATION: [facility] SUBJECTIVE HISTORY OF PRESENT ILLNESS Earnestine [...] agreement with this plan. Seema Reina P.A.-C. NESS APPLICATIONS DEVELOPER documented in this encounter Plan of Treatment Not on file documented as of this encounter Visit Diagnoses Diagnosis Preoperative Exam- Primary Asthma Mild Intermittent (HCC) documented in this encounter Additional Health Concerns Assessment Noted Time PHQ-9 Depression Total Score: 7 08/20/19 20 11:28 AM BUSINESS APPLICATIONS DEVELOPER documented as of this encounter Care Teams Sponge Maker Relationship Specialty Start Date End Date Seema Reina P.A.-C. [address] [phone] PCP - General 09/07/20 documented as of this encounter
--- OUTSIDE RECORDS SUMMARY | 2023-08-07 10:51 | XMS_ITS | Encounter Summary ---
Author Name Unknown Organization [facility] Address [address] [place] [address] Care Team Providers Care Slasher Name Role Phone Seema Reina P.A.-C. Primary Care Provider +1- [phone] Reason for Visit * Reason Comments Nurse Visit BP & weight check fo r phentermine refill * Outpatient (Routine) - Authorized Specialty Diagnoses / Procedures Referred By Heriberto t Referred To Contact Seema Reina P.A.-C. [address] [place] [address] [facility] Region Referral ID Status Reason Start Date Expiration Date V isits Requested Visits Authorized [id number] Authorized 01/27/2023 01/26/2026 1 1 Encounter Details Date Type Department Care Team (Late st Contact Info) Description 02/27/2023 10:00 AM CDT Nurse Only Department of Family Medicine, [facility], in [place], [place] [address] [place] [address] Tomasa Mijares L.P.NRiley [address] [place] [phone] Nurse Visit (BP & weight check for [...] declined 09/11/2022 How often do you attend congregational or amish serv ices? Patient declined 09/11/2022 Do you belong to any clubs o r organizations such as congregational groups, unions, fraternal or athletic groups, or [...] Answer Date Recorded PHQ-2 Score 0 10/09/2022 [facility] of Occupat ional Health - Occupational [...] your living situation today? I have a [facility] place to live 01/01/2023 Education Answer Date Recorded What is the highest level of school you have completed or the highest degree you have received? Associate degree: occupational, technical, or vocational program 03/12/2019 Sex and Gender Information Value Date Recorded Sex Assigned at Female 09/11/2022 8:42 PM CDT Gender Identity Female 05/06/2017 10:05 AM REVENUE AGENT Sexual Orientation Choose not to disclose 2022 [...] Patient would like their refill sent to [facility] pharmacy in [place]. documented in this encounter Plan of Treatment Not on file documented as of this encounter Visit Diagnoses Diagnosis Body Mass Index 32.0 To 32.9 Adult- Primary documented in this encounter Additional Health Concerns Assessment Noted Time PHQ-9 Depression Total Score: 7 08/20/19 20 11:28 AM REVENUE AGENT documented as of this encounter Care Teams Slasher Relationship Specialty Start Date End Date Seema Reina P.A.-C. [address] [phone] PCP - General 09/07/20 documented as of this encounter
--- OUTSIDE RECORDS SUMMARY | 2023-08-07 10:51 | XMS_ITS ---
Author Name Unknown Organization [facility] Address [address] [place] [address] Care Team Providers Care Elementary Vocal Music Teacher Name Role Phone Unavailable Unavailable Unavailable Surgery Details Not on file Complications Check Surgery Details section. Procedure Estimated Blood Loss Check Surgery Details section. Procedure Findings Check Surgery Details section. Procedure Specimens Taken Check Surgery Details section.
--- OUTSIDE RECORDS SUMMARY | 2023-08-07 10:51 | XMS_ITS | Encounter Summary ---
Author Name Unknown Organization [facility] Address [address] [place] [address] Care Team Providers Care Lookback Coordinator Name Role Phone Seema Reina P.A.-C. Primary Care Provider +1- [phone] Reason for Referral * Outpatient (Routine) - Authorized Specialty Diagnoses / Procedures Referred By Contashish t Referred To Contact Seema Reina P.A.-C. [address] [place] [address] [facility] Referral ID Status Reason Start Date Expiration Date V isits Requested Visits Authorized [id number] Authorized 02/27/2023 02/26/2026 1 1 Reason for Visit * Reason Onset Date Comments Med Refill 02/27/2023 Encounter Details Date Type Department Care Team (Late st Contact Info) Description 02/27/2023 Clinical Communication Department of Family Medicine, [facility], in [place], [place] [address] [address] Seema Reina P.A.-C. [address], [place] [address] Med Refill Social History Tobacco [...] How often do you attend uatsdin or judaism serv ices? Patient declined 09/11/2022 Do you [...] Answer Date Recorded PHQ-2 Score 0 10/09/2022 [facility] of Occupat ional [facility] - [...] your living situation today? I have a [facility] place to live 01/01/2023 Education Answer Date Recorded What is the highest level of school you have completed or the highest degree you have received? Associate degree: occupational, technical, or vocational program 03/12/2019 Sex and Gender Information Value Date Recorded Sex Assigned at Female 09/11/2022 8:42 PM CDT Gender Identity Female 05/06/2017 10:05 AM WASTE SPECIALIST Sexual Orientation Choose not to disclose [...] Patient would like their refill sent to [facility] pharmacy in [place]. documented in this encounter Plan of Treatment Scheduled Referrals Name Type Priority Associated Diagnoses Orde r Schedule Primary Care nurse visit (clinic) - [facility] Region; BP check, Weight check (adult); BP check only (CLOTHES SHAKER) Outpatient Referral Routine Expected: 03/29/2023 (Approximate), Expires: 05/29/2024 documented as of this encounter Visit Diagnoses Diagnosis Body Mass Index 32.0 To 32.9 Adult documented in this encounter Additional Health Concerns Assessment Noted Time PHQ-9 Depression Total Score: 7 08/20/19 20 11:28 AM WASTE SPECIALIST documented as of this encounter Care Teams Lookback Coordinator Relationship Specialty Start Date End Date Seema Reina P.A.-C. [address] [place] [address] PCP - General 09/07/20 documented as of this encounter
--- OUTSIDE RECORDS SUMMARY | 2023-08-07 10:51 | XMS_ITS | Encounter Summary ---
Author Name Unknown Organization [facility] Address [address] [place] [address] Care Team Providers Care Copper Plate Printer Name Role Phone Seema Reina P.A.-C. Primary Care Provider +1- [phone] Reason for Visit * Reason Onset Date Comments Testing For Upper Respiratory Virus Symptoms Encounter Details Date Type Department Care Team (Late st Contact Info) Description 06/12/2023 Nurse Triage Department of Family Medicine, [facility], in [place], [place] [address] [place] [address] Kellee Obrien, RRileyN. Testing For [...] declined 09/11/2022 How often do you attend zoroastrian or quaker serv ices? Patient declined 09/11/2022 Do you belong to any clubs o r organizations such as zoroastrian groups, unions, fraternal or athletic groups, or [...] Answer Date Recorded PHQ-2 Score 0 10/09/2022 [facility] of Occupat ional [facility] - Occupational Stress Questionnaire Answer Date [...] your living situation today? I have a [facility] place to live 01/01/2023 Education Answer Date Recorded What is the highest level of school you have completed or the highest degree you have received? Associate degree: occupational, technical, or vocational program 03/12/2019 Sex and Gender Information Value Date Recorded Sex Assigned at Female 09/11/2022 8:42 PM CDT Gender Identity Female 05/06/2017 10:05 AM CATECHIST Sexual Orientation Choose not to disclose 2022 8:42 PM CDT documented as of this encounter Miscellaneous Notes * Telephone Encounter - Soledad John L.PRileyN. - 06/13/2023 2:13 PM CATECHIST Given to DOS staff to get scheduled CHIST * Telephone Encounter - Kellee Obrien R.N. - 06/12/2023 2:55 PM CATECHIST Chief Complaint / Reason for Call Patient [...] her portal account. Her phone number is [phone] and it is fine to leave a detailed message. Reason for Disposition [1] Probable influenza (fever) with no complications AND [2] NOT HIGH RISK Protocols used: Influenza (Flu) - Qxhhryji-GRSDP-HU Care Advice Patient/Caregiver understands and will follow [...] or school. * Do NOT go to zoroastrian, childcare provider centers, shopping, or other public places. * [...] use a saline nasal spray bottle (available lyso-top-ydtissn). NASAL WASHES - KQOM-TY-ECWU INSTRUCTIONS: * STEP 1: Lean over a [...] * Most cold medicines that are available etcq-zwt-kyrfnay (OTC) are not helpful. NASAL DECONGESTANTS FOR [...] with you. * Cough drops are available pksm-lxy-noupedd (OTC). * HOME REMEDY - HARD CANDY: Hard candy works just as well as a medicine-flavored OTC cough drops. COUGH MEDICINES: * COUGH DROPS: Vhhu-dbn-ixolclz cough drops can help a lot, especially for mild coughs. They soothean irritated throat and remove the tickle sensation in the back of the throat. Cough drops are easyto carry with you. * HOME REMEDY - HARD CANDY: Hard candy works just as well as fifb-qvh-wwhkvmu cough drops. People who have diabetes should [...] either acetaminophen or ibuprofen. * They are zsaf-bgv-jihfjay (OTC) drugs that help treat both fever [...] Difficulty breathing occurs * You become worse CHIST documented in this encounter Plan of Treatment Not on file documented as of this encounter Visit Diagnoses Not on filedocumented in this encounter Additional Health Concerns Assessment Noted Time PHQ-9 Depression Total Score: 7 08/20/19 20 11:28 AM CATECHIST documented as of this encounter Care Teams Copper Plate Printer Relationship Specialty Start Date End Date Seema Reina P.A.-C. [address] [place] [phone] PCP - General 09/07/20 documented as of this encounter
--- OUTSIDE RECORDS SUMMARY | 2023-08-07 10:51 | XMS_ITS | Clinical Summary ---
Author Name Unknown Organization [facility] Address [address] [place] [address] Care Team Providers Care Button Reclaimer Name Role Phone Seema Reina P.A.-C. Primary Care Provider +1- [phone] Source Comments Patient records contain information from all sites at [facility]. For routine questions regarding patient records, call [phone] during business hours, M-F 8:00 AM - 5:00 PM Central Time. Record requests for emergency care only can be directed to [phone] at any time.[facility] Allergies Active Allergy Reactions Criticality Noted Date [...] Department Care Team Description 06/25/2023 12:00 PM DOLL WIG MAKER Office Visit Department of Family Medicine, [facility], in [place], [place] [address] [place] [phone] Seema Reina, P.A.-C. Preoperative Exam (Primary Dx); Asthma Mild Intermittent (HCC) 06/12/2023 Nurse Triage Department of Family Medicine, [facility], in [place], [place] [address] [address] Kellee Obrien, RRileyNRiley Testing For Upper Respiratory Virus Symptoms 05/16/2023 Nurse Triage Department of Family Medicine, [facility], in [place], [place] [address] [phone] Lynn Mckeon RYvette Abdominal Pain from Last 3 Months Immunizations Name Administration [...] How often do you attend nondenominational or zoroastrian serv ices? Patient declined 09/11/2022 Do you [...] Answer Date Recorded PHQ-2 Score 0 06/25/2023 [facility] Occupat ional [facility] - Occupational Stress Questionnaire Answer Date [...] your living situation today? I have a [facility] place to live 01/01/2023 Education Answer Date Recorded What is the highest level of school you have completed or the highest degree you have received? Associate degree: occupational, technical, or vocational program 03/12/2019 Sex and Gender Information Value Date Recorded Sex Assigned at Female 09/11/2022 8:42 PM CDT Gender Identity Female 05/06/2017 10:05 AM DOLL WIG MAKER Sexual Orientation Choose not to disclose 2022 8:42 PM CDT Last Filed Vital Signs Vital Sign Reading Time Taken Comments Blood Pressure 106/74 06/25/2023 11:52 AM DOLL WIG MAKER Pulse 85 06/25/2023 11:52 AM DOLL WIG MAKER Temperature 35.7 ??C (96.2 ??F) 10/09/2022 9:19 AM CD T Respiratory Rate 18 11/12/2021 6:00 PM CDT Oxygen Saturation 98% 09/16/2022 12:44 PM CDT Inhaled Oxygen Concentration - - Weight 92 kg (202 lb 13.2 oz) 06/25/2023 11:52 A M DOLL WIG MAKER Height 172.8 cm (5' 8.03) 06/25/2023 11:[address] Body Mass Index 30.81 06/25/2023 11:52 AM DOLL WIG MAKER Plan of Treatment Health Maintenance Due Date [...] age to complete this topic Care Teams Button Reclaimer Relationship Specialty Start Date End Date Seema Reina P.A.-C. [address] [place] [phone] PCP - General 09/07/20
--- OUTSIDE RECORDS SUMMARY | 2023-08-07 10:52 | XMS_ITS | Encounter Summary ---
Author Name Unknown Organization [facility] Address [address] [place] [address] Care Team Providers Care Film Or Videotape Editor Name Role Phone Seema Reina P.A.-C. Primary Care Provider +1- [phone] Reason for Referral * Outpatient (Routine) - Authorized Specialty Diagnoses / Procedures Referred By Contashish t Referred To Contact Seema Reina P.A.-C. [address] [place] [address] [facility] Referral ID Status Reason Start Date Expiration Date V isits Requested Visits Authorized [id number] Authorized 01/27/2023 01/26/2026 1 1 Reason for Visit * Reason Onset Date Comments Blood Pressure Check 01/24/2023 Weight Check 01/24/2023 Encounter Details Date Type Department Care Team (Latest Contact Info) Description 01/24/2023 Clinical Communication Department of Family Medicine, [facility], in [place], [place] [address] [place] [address] Seema Reina P.A.-C. [address] [place] [address] Blood Pressure Check; Weight Check [...] How often do you attend gnosticism or buddhist serv ices? Patient declined 09/11/2022 Do you [...] Answer Date Recorded PHQ-2 Score 0 10/09/2022 [facility] - Occupational Stress Questionnaire Answer [...] your living situation today? I have a [facility] place to live 01/01/2023 Education Answer Date Recorded What is the highest level of school you have completed or the highest degree you have received? Associate degree: occupational, technical, or vocational program 03/12/2019 Sex and Gender Information Value Date Recorded Sex Assigned at Female 09/11/2022 8:42 PM CDT Gender Identity Female 05/06/2017 10:05 AM SOFTWARE DEVELOPER MID LEVEL Sexual Orientation Choose not to disclose 03/22/ [...] nurse visit (clinic) - [facility] Region; BP check, Weight check (adult); BP check only (HEAT PLANT SPECIALIST) Outpatient Referral Routine Expected: 02/27/2023 (Approximate), Expires: 04/29/2024 documented as of this encounter Visit Diagnoses Diagnosis Body Mass Index 32.0 To 32.9 Adult- Primary documented in this encounter Additional Health Concerns Assessment Noted Time PHQ-9 Depression Total Score: 7 08/20/19 20 11:28 AM SOFTWARE DEVELOPER MID LEVEL documented as of this encounter Care Teams Film Or Videotape Editor Relationship Specialty Start Date End Date Seema Reina P.A.-C. [address] [place] [phone] PCP - General 09/07/20 documented as of this encounter
--- OUTSIDE RECORDS SUMMARY | 2023-08-07 10:52 | XMS_ITS | Encounter Summary ---
Author Name Unknown Organization [facility] Address [address] [place] [address] Care Team Providers Care Experience Specialist Name Role Phone Seema Reina P.A.-C. Primary Care Provider +1- [phone] Encounter Details Date Type Department Care Team (Late st Contact Info) Description 12/08/2022 Orders Only Department of Family Medicine, [facility], in [place], [place] [address] [address] Joel Duque M.D. [address] [place] [address] Social History Tobacco Use Types [...] declined 09/11/2022 How often do you attend buddhism or synagogue serv ices? Patient declined 09/11/2022 Do you belong to any clubs o r organizations such as buddhism groups, unions, fraternal or athletic groups, or [...] Answer Date Recorded PHQ-2 Score 0 10/09/2022 [facility] of Occupat ional Health - Occupational [...] CDT Gender Identity Female 05/06/2017 10:05 AM DEPENDENCY COUNSELOR Sexual Orientation Choose not to disclose 2022 8:42 PM CDT documented as of this encounter Plan of Treatment Not on file documented as of this encounter Visit Diagnoses Not on filedocumented in this encounter Additional Health Concerns Assessment Noted Time PHQ-9 Depression Total Score: 7 08/20/19 20 11:28 AM DEPENDENCY COUNSELOR documented as of this encounter Care Teams Experience Specialist Relationship Specialty Start Date End Date Seema Reina P.A.-C. [address] [address] PCP - General 09/07/20 documented as of this encounter
--- OUTSIDE RECORDS SUMMARY | 2023-08-07 10:52 | XMS_ITS | Encounter Summary ---
Author Name Unknown Organization [facility] Address [address] [place] [address] Care Team Providers Care Tawer Name Role Phone Seema Reina P.A.-C. Primary Care Provider +1- [phone] Encounter Details Date Type Department Care Team (Late st Contact Info) Description 12/09/2022 Clinical Communication Department of Family Medicine, [facility], in [place], [place] [address] [address] Seema Reina P.A.-C. [address] [place] [address] Social History Tobacco Use Types [...] How often do you attend adventist or hinduism serv ices? Patient declined 09/11/2022 [...] 10/09/2022 [facility] of Occupat ional Health - Occupational [...] your living situation today? I have a [facility] place to live 01/01/2023 Education Answer Date Recorded What is the highest level of school you have completed or the highest degree you have received? 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 [address] [place] [address] PCP - General 09/07/20 documented as of this encounter
--- OUTSIDE RECORDS SUMMARY | 2023-08-07 10:52 | XMS_ITS | Encounter Summary ---
Author Name Unknown Organization [facility] Address [address] [place] [address] Care Team Providers Care Needle Maker Name Role Phone Seema Reina.A.-CRiley Primary Care Provider +1- [phone] Reason for Referral * Outpatient (Routine) - Closed Specialty Diagnoses / Procedures Referred By Contac t Referred To Contact Diagnoses Prolonged QT Interval Procedures Long QT Syndrome Gene Panel AZ MOPATH PROCEDURE LEVEL 4 AZ MOPATH PROCEDURE LEVEL 7 AZ MOPATH PROCEDURE LEVEL 7 AZ MOPATH PROCEDURE LEVEL 8 AZ UNLISTED PROC MOPATH Derrick Ríos M.D., Ph.D. [address] [place] [address] [facility] Referral ID Status Reason Start Date Expiration Date Visits Re quested Visits Authorized [id number] Closed 09/16/2022 10/17/2022 1 1 Reason for Visit * Outpatient (Routine) - Closed Specialty Diagnoses / Procedures Referred By Contact Referred To Contact Cardiovascular Diseases / Cardiovascular Disease Diagnoses Prolonged QT Interval Seema Reina, P.A.-C. [address] [place] [address] [facility] Referral ID Status Reason Start Date Expiration Date Visits Re quested Visits Authorized [id number] Closed 11/14/2021 11/14/2022 1 1 Encounter Details Date Type Department Care Team (Latest Contact Info) Description 09/16/2022 1:00 PM CDT Comprehensive Visit Department of Cardiovascular Medicine in [place], [place] [address] [place] [address] Derrick Ríos M.D., Ph.D. [address] [place] [address] Prolonged QT Interval Social History Tobacco Use [...] declined 09/11/2022 How often do you attend jewish or hoahaoism serv ices? 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 Ulloa in the [facility] this afternoon. She [...] merited. - No specific follow-up in the [facility] has [...] Syndrome Gene Panel (09/16/2022 1:34 PM CDT) [facility] Signature Test Description Evaluation of 10 genes associated with long QT syndrome (LQTS) 10/15/2022 7:35 PM CDT DTL Specimen WB Whole Blood 10/15/2022 7:35 PM CDT DTL Genes Analyzed [id number], CALM1, CALM2, CALM3, KCNE1, KCNH2, KCNJ2, KCNQ1, SCN5A and TRDN 10/15/2022 7:35 PM CDT DTL Disclaimer Clinical Correlations An online research opportunity called [employer] (Expert [employer].Adapta Medical) , a project of [employer], is available for the recipient of this genetic test. This patient registry collects de-identified genetic and health information to advance the knowledge of genetic variants. [facility] is a collaborator of [employer]. This may not be applicable for all [...] assistance in the interpretation of these results, [facility] Laboratory genetic counselors can be contacted [...] this test. Reclassification of Variants Policy See www.2NDNATUREs. com (TEST ID LQTSG) for information regarding the laboratory's policy for reclassification of variants. Variant Evaluation Variant curation is performed using published ACMG-AMP recommendations as a guideline. Other gene-specific guidelines may also be considered. Variants classified as benign or likely benign are not reported. Results from in silico evaluation tools may paint roller covers supervisor time and should be interpreted with caution and professional clinical judgment. TEST CLASSIFICATION This test was developed and its performance characteristics determined by [facility] in a manner consistent with CLIA [...] methodologies based on internal laboratory criteria. See www.silver bayChogger. DesiCrew Solutions (TEST ID LQTSG) for details regarding [...] Ríos M.D., Ph.D. LAB GENETI C TESTING [facility] [address] [place] [address], [facility] DTL [address] [place] [address] documented in this encounter Visit Diagnoses Diagnosis Prolonged QT Interval documented in this encounter Additional Health Concerns Assessment Noted Time PHQ-9 Depression Total Score: 7 08/20/19 20 11:28 AM COSTUME DRAPER documented as of this encounter Care Teams Needle Maker Relationship Specialty Start Date End Date Seema Reina P.A.-C. [address] [place] [phone] PCP - General 09/07/20 documented as of this encounter
--- OUTSIDE RECORDS SUMMARY | 2023-08-07 10:52 | XMS_ITS | Encounter Summary ---
Author Name Unknown Organization [facility] Address [address] [place] [address] Care Team Providers Care Check Grader Name Role Phone Seema Reina P.A.-C. Primary Care Provider +1- [phone] Reason for Referral * Outpatient (Routine) - Closed Specialty Diagnoses / Procedures Referred By Contac t Referred To Contact Diagnoses Prolonged QT Interval Procedures Long QT Syndrome Gene Panel MS MOPATH PROCEDURE LEVEL 4 MS MOPATH PROCEDURE LEVEL 7 MS MOPATH PROCEDURE LEVEL 7 MS MOPATH PROCEDURE LEVEL 8 MS UNLISTED PROC Derrick Mckenzie M.D., Ph.D. [address] [place] [address] [facility] Referral ID Status Reason Start Date Expiration Date Visits Re quested Visits Authorized [id number] Closed 09/16/2022 10/17/2022 1 1 Reason for Visit * Outpatient (Routine) - Closed Specialty Diagnoses / Procedures Referred By Contac t Referred To Contact Diagnoses Prolonged QT Interval Procedures Long QT Syndrome Gene Panel MS MOPATH PROCEDURE LEVEL 4 MS MOPATH PROCEDURE LEVEL 7 MS MOPATH PROCEDURE LEVEL 7 MS MOPATH PROCEDURE LEVEL 8 MS UNLISTED PROC Derrick Mckenzie M.D., Ph.D. [address] [place] [address] [facility] Referral ID Status Reason Start Date Expiration Date Visits Re quested Visits Authorized [id number] Closed 09/16/2022 10/17/2022 1 1 Encounter Details Date Type Department Care Team (Latest Contact Info) Description 09/16/2022 1:27 PM CDT - 09/16/2022 11:59 PM CDT Hospital Encounter Department of Laboratory Medicine and Pathology, [facility] in [place], [place] [address] [place] [phone] Derrick Ríos M.D., Ph.D. [address] [place] [address] Prolonged QT Interval Discharge Disposition: Home or [...] How often do you attend caodaism or druze serv ices? 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 This patient registry collects de-identified genetic and health information to advance the knowledge of genetic variants. [facility] is a collaborator of [employer]. This may not be applicable for all [...] assistance in the interpretation of these results, [facility] Laboratory genetic counselors can be contacted at [...] this test. Reclassification of Variants Policy See www.BoomBang. Storspeed (TEST ID LQTSG) for information regarding the laboratory's policy for reclassification of variants. Variant Evaluation Variant curation is performed using published ACMG-AMP recommendations as a guideline. Other gene-specific guidelines may also be considered. Variants classified as benign or likely benign are not reported. Results from in silico evaluation tools may waste/materials exchange specialist time and should be interpreted with caution and professional clinical judgment. TEST CLASSIFICATION This test was developed and its performance characteristics determined by [facility] in a manner consistent with CLIA requirements. This test has not been cleared or approved by the U.S. Food and Drug Administration. 10/15/2022 7:35 PM CDT DTL Released By Skyler Hudson M.D. 10/15/2022 7:35 PM CDT DTL Result Summary Negative 10/15/2022 7:35 PM CDT DTL Result No reportable variants were detected. 10/15/2022 7:35 PM CDT DTL Method Next generation sequencing (NGS) and/or [place] sequencing was performed to test for the [...] methodologies based on internal laboratory criteria. See www.BoomBang. Storspeed (TEST ID LQTSG) for details regarding genes [...] Ríos M.D., Ph.D. LAB GENETI C TESTING [facility] [address] [place] [address], [facility] [[email or web address]] DTL [address] [place] [address] documented in this encounter Visit Diagnoses Diagnosis Prolonged QT Interval documented in this encounter Additional Health Concerns Assessment Noted Time PHQ-9 Depression Total Score: 7 08/20/19 20 11:28 AM MULTIFOLD OPERATOR documented as of this encounter Care Teams Check Grader Relationship Specialty Start Date End Date Seema Reina P.A.-C. [address] [phone] PCP - General 09/07/20 documented as of this encounter
--- OUTSIDE RECORDS SUMMARY | 2023-08-07 10:52 | XMS_ITS | Encounter Summary ---
Author Name Unknown Organization [facility] Address [address] [place] [address] Care Team Providers Care Ecological Technical Officer Name Role Phone Seema Reina P.A.-C. Primary Care Provider +1- [phone] Reason for Referral * Outpatient (Routine) - Authorized Specialty Diagnoses / Procedures Referred By Heriberto t Referred To Contact Diagnoses Postural Orthostatic Tachycardia Syndrome Procedures Autonomic reflex Screen Seema Reina P.A.-C. [address] [place] [address] [facility] Referral ID Status Reason Start Date Expiration Date V isits Requested Visits Authorized [id number] Authorized 01/08/2023 01/08/2024 1 1 Reason for Visit * Reason Comments Follow-up F/u POTS * Outpatient (Routine) - Closed Specialty Diagnoses / Procedures Referred By Contashish jewell Referred To Contact Family Medicine Seema Reina P.A.-C. [address] [place] [address] [facility] Referral ID Status Reason Start Date Expiration Date Visits Re quested Visits Authorized [id number] Closed 10/09/2022 10/08/2025 1 1 Encounter Details Date Type Department Care Team (Late st Contact Info) Description 01/08/2023 12:00 PM CDT Telemedicine Department of Family Medicine, [facility], in [place], [place] [address] [address] Seema Reina P.A.-C. [address] [place] [address] Postural Orthostatic Tachycardia Syndrome (Primary [...] declined 09/11/2022 How often do you attend oriental orthodox or catholic serv ices? Patient declined 09/11/2022 Do you belong to any clubs o r organizations such as oriental orthodox groups, unions, fraternal or athletic groups, or [...] Date Recorded PHQ-2 Score 0 10/09/2022 [facility] of Occupat ional Health - Occupational Stress [...] CDT Gender Identity Female 05/06/2017 10:05 AM AQUATICS ASSISTANT DEPARTMENT HEAD Sexual Orientation Choose not to disclose 2022 [...] modifications consider follow-up with [facility] in [place]. Consult conducted via real-time audio/video technology by Seema Reina PA-C in [facility] to thepatient in home. Total time [...] Total Score: 7 08/20/19 20 11:28 AM AQUATICS ASSISTANT DEPARTMENT HEAD documented as of this encounter Care Teams Ecological Technical Officer Relationship Specialty Start Date End Date Seema Reina P.A.-C. [address] [place] [phone] PCP - General 09/07/20 documented as of this encounter
--- OUTSIDE RECORDS SUMMARY | 2023-08-07 10:52 | XMS_ITS | Encounter Summary ---
Author Name Unknown Organization [facility] Address [address] [place] [address] Care Team Providers Care Angle Roll Operator Name Role Phone Seema Reina P.A.-C. Primary Care Provider +1- [phone] Reason for Referral * Outpatient (Routine) - Closed Specialty Diagnoses / Procedures Referred By Contac t Referred To Contact Cardiovascular Disease Diagnoses Prolonged QT Interval Procedures Cardiopulmonary (VO2) Exercise Test Seema Reina P.A.-C. [address] [place] [address] [facility] Region Referral ID Status Reason Start Date Expiration Date Visits Re quested Visits Authorized [id number] Closed 11/14/2021 11/14/2022 1 1 Reason for Visit * Outpatient (Routine) - Closed Specialty Diagnoses / Procedures Referred By Contac t Referred To Contact Cardiovascular Disease Diagnoses Prolonged QT Interval Procedures Cardiopulmonary (VO2) Exercise Test Seema Reina P.A.-C. [address] [place] [address] [facility] Region Referral ID Status Reason Start Date Expiration Date Visits Re quested Visits Authorized [id number] Closed 11/14/2021 11/14/2022 1 1 Encounter Details Date Type Department Care Team (Latest Contact Info) Description 09/16/2022 7:30 AM CDT - 09/16/2022 8:21 AM CDT Hospital Encounter Department of Cardiovascular Diseases in [place], [place] [address] [place] [address] Seema Reina P.A.-C. [address] [place] [address] Prolonged QT Interval Discharge Disposition: [...] declined 09/11/2022 How often do you attend religious or anabaptist serv ices? Patient declined 09/11/2022 Do you belong to any clubs o r organizations such as religious groups, unions, fraternal or athletic groups, or [...] Answer Date Recorded PHQ-2 Score 1 08/20/2019 [facility] of Occupat ional Health - Occupational Stress [...] CDT Gender Identity Female 05/06/2017 10:05 AM BOX SPINNER Sexual Orientation Choose not to disclose 2022 [...] Total Score: 7 08/20/19 20 11:28 AM BOX SPINNER documented as of this encounter Care Teams Angle Roll Operator Relationship Specialty Start Date End Date Seema Reina P.A.-C. [address], [place] [address] PCP - General 09/07/20 documented as of this encounter
--- OUTSIDE RECORDS SUMMARY | 2023-08-07 10:52 | XMS_ITS | Encounter Summary ---
Author Name Unknown Organization [facility] Address [address] [place] [address] Care Team Providers Care Jewelry Sales Representative Name Role Phone Seema Reina P.A.-C. Primary Care Provider +1- [phone] Reason for Visit * Reason Onset Date Comments Medical Information 12/03/2022 Encounter Details Date Type Department Care Team (Late st Contact Info) Description 12/03/2022 Nurse Triage Department of Family Medicine, [facility], in [place], [place] [address] [place] [address] Concha Wilkins RYvette [address] [place] [address] Medical Information Social History Tobacco Use Types [...] declined 09/11/2022 How often do you attend lutheran or restorationist serv ices? Patient declined 09/11/2022 Do you belong to any clubs o r organizations such as lutheran groups, unions, fraternal or athletic groups, or [...] Answer Date Recorded PHQ-2 Score 0 10/09/2022 [facility] - Occupational Stress Questionnaire Answer Date [...] place to sleep or slept in a fci (including now)? Patient refused 09/11/2022 Depression Answer [...] CDT Gender Identity Female 05/06/2017 10:05 AM MOPHEAD SEWER Sexual Orientation Choose not to disclose 2022 8:42 PM CDT documented as of this encounter Miscellaneous Notes * Telephone Encounter - Concha Wilkins R.N. - 12/03/2022 4:52 PM CDT Patient checking on prescription refill for Ozempic. Patient was warm transferred toElyssa Patient Appointment Outer Diameter Technician at the clinic for further assistance. documented in this encounter Plan of Treatment Not on file documented as of this encounter Visit Diagnoses Not on filedocumented in this encounter Additional Health Concerns Assessment Noted Time PHQ-9 Depression Total Score: 7 08/20/19 20 11:28 AM MOPHEAD SEWER documented as of this encounter Care Teams Jewelry Sales Representative Relationship Specialty Start Date End Date Seema Reina P.A.-C. [address] [place] [address] PCP - General 09/07/20 documented as of this encounter
--- OUTSIDE RECORDS SUMMARY | 2023-08-07 10:52 | XMS_ITS | Encounter Summary ---
Author Name Unknown Organization [facility] Address [address] [place] [address] Care Team Providers Care Sheriff'S Officer Name Role Phone Seema Reina P.A.-C. Primary Care Provider +1- [phone] Encounter Details Date Type Department Care Team (Late st Contact Info) Description 11/27/2022 Clinical Communication Pharmacy Prior Auth [facility] [phone] Brett Magana Social History Tobacco Use Types [...] declined 09/11/2022 How often do you attend gnosticist or holiness serv ices? 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 [address] [place] [phone] PCP - General 09/07/20 documented as of this encounter
--- OUTSIDE RECORDS SUMMARY | 2023-08-07 10:52 | XMS_ITS | Encounter Summary ---
Author Name Unknown Organization [facility] Address [address] [place] [address] Care Team Providers Care B2B Account Executive Name Role Phone Bishop Carrillo P.A.-C. Primary Care Provider +1- [phone] Reason for Referral * Outpatient (Routine) - Closed Specialty Diagnoses / Procedures Referred By Heriberto t Referred To Contact Family Medicine Bishop Carrillo P.A.-C. [address] [place] [address] [facility] Referral ID Status Reason Start Date Expiration Date Visits Re quested Visits Authorized [id number] Closed 10/09/2022 10/08/2025 1 1 Reason for Visit * Reason Comments Weight Loss * Appointment Request (Routine) - Closed Specialty Diagnoses / Procedures Referred By Heriberto jewell Referred To Contact Family Medicine Referral ID Status Reason Start Date Expiration Date Visits Re quested Visits Authorized [id number] Closed 09/26/2022 09/26/2023 1 1 Encounter Details Date Type Department Care Team (Late st Contact Info) Description 10/09/2022 9:30 AM CDT Office Visit Department of Family Medicine, [facility], in [place], [place] [address] [place] [address] Bishop Carrillo P.A.-C. [address] [place] [phone] Counseling Diet (Primary Dx); Body Mass [...] How often do you attend samaritan or confucianism serv ices? Patient declined 09/11/2022 Do you [...] Answer Date Recorded PHQ-2 Score 0 10/09/2022 [facility] - Occupational Stress Questionnaire Answer Date [...] place to sleep or slept in a chcf (including now)? Patient refused 09/11/2022 Depression Answer [...] CDT Gender Identity Female 05/06/2017 10:05 AM FISHER DIVING Sexual Orientation Choose not to disclose 2022 [...] Total Score: 7 08/20/19 20 11:28 AM FISHER DIVING documented as of this encounter Care Teams B2B Account Executive Relationship Specialty Start Date End Date Bishop Carrillo P.A.-C. [address], [place] [phone] PCP - General 09/07/20 documented as of this encounter
--- OUTSIDE RECORDS SUMMARY | 2023-08-07 10:52 | XMS_ITS | Encounter Summary ---
Author Name Unknown Organization [facility] Address [address] [place] [address] Care Team Providers Care Blasting Clay Miner Name Role Phone Seema Reina P.A.-C. Primary Care Provider +1- [phone] Reason for Visit * Reason Comments Blood Pressure Check Weight Check * Outpatient (Routine) - Authorized Specialty Diagnoses / Procedures Referred By Heriberto t Referred To Contact Seema Reina P.A.-C. [address] [place] [address] [facility] Region Referral ID Status Reason Start Date Expiration Date V isits Requested Visits Authorized [id number] Authorized 12/25/2022 12/24/2025 1 1 Encounter Details Date Type Department Care Team (Late st Contact Info) Description 01/24/2023 1:00 PM CDT Nurse Only Department of Family Medicine, [facility], in [place], [place] [address] [place] [address] Seema Reina P.A.-C. [address] [place] [address] Katherine Jones, L.P.NRiley Blood Pressure Check; Weight Check Social History [...] declined 09/11/2022 How often do you attend christian or judaism serv ices? Patient declined 09/11/2022 Do you belong to any clubs o r organizations such as christian groups, unions, fraternal or athletic groups, or [...] Answer Date Recorded PHQ-2 Score 0 10/09/2022 [facility] - Occupational Stress Questionnaire Answer [...] your living situation today? I have a [facility] place to live 01/01/2023 Education Answer Date Recorded What is the highest level of school you have completed or the highest degree you have received? Associate degree: occupational, technical, or vocational program 03/12/2019 Sex and Gender Information Value Date Recorded Sex Assigned at Female 09/11/2022 8:42 PM CDT Gender Identity Female 05/06/2017 10:05 AM BAGGAGE SCREENER Sexual Orientation Choose not to disclose 2022 [...] this encounter Progress Notes * Katherine Jones L.PRileyN. - 01/24/2023 1:00 PM CDT Earnestine is [...] Total Score: 7 08/20/19 20 11:28 AM BAGGAGE SCREENER documented as of this encounter Care Teams Blasting Clay Miner Relationship Specialty Start Date End Date Seema Reina P.A.-C. [address] [place] [phone] PCP - General 09/07/20 documented as of this encounter
--- OUTSIDE RECORDS SUMMARY | 2023-08-07 10:52 | XMS_ITS | Encounter Summary ---
Author Name Unknown Organization [facility] Address [address] [place] [address] Care Team Providers Care Mid Level Game Designer Name Role Phone Seema Reina P.A.-C. Primary Care Provider +1- [phone] Reason for Referral * Outpatient (Routine) - Closed Specialty Diagnoses / Procedures Referred By Contac t Referred To Contact Diagnoses Prolonged QT Interval Procedures Echo Transthoracic (TTE) Seema Reina P.A.-C. [address] [place] [address] [facility] Referral ID Status Reason Start Date Expiration Date Visits Re quested Visits Authorized [id number] Closed 09/10/2022 11/14/2023 1 1 Reason for Visit * Outpatient (Routine) - Closed Specialty Diagnoses / Procedures Referred By Heriberto jewell Referred To Contact Diagnoses Prolonged QT Interval Procedures Echo Transthoracic (TTE) Seema Reina P.A.-C. [address] [place] [phone] [facility] Referral ID Status Reason Start Date Expiration Date Visits Re quested Visits Authorized [id number] Closed 09/10/2022 11/14/2023 1 1 Encounter Details Date Type Department Care Team (Latest Contact Info) Description 09/16/2022 8:22 AM CDT - 09/16/2022 1:26 PM CDT Hospital Encounter Department of Cardiovascular Diseases in [place], [place] [address] [place] [address] Seema Reina P.A.-C. [address] [place] [phone] Prolonged QT Interval Discharge Disposition: Home or [...] often do you attend roman catholic or amish serv ices? Patient declined 09/11/2022 [...] Answer Date Recorded PHQ-2 Score 1 08/20/2019 [facility] [...] CDT Gender Identity Female 05/06/2017 10:05 AM PROCESS MANUFACTURING ENGINEER Sexual Orientation Choose not to disclose 2022 [...] Total Score: 7 08/20/19 20 11:28 AM PROCESS MANUFACTURING ENGINEER documented as of this encounter Care Teams Mid Level Game Designer Relationship Specialty Start Date End Date Seema Reina P.A.-C. [address] [phone] PCP - General 09/07/20 documented as of this encounter
--- OUTSIDE RECORDS SUMMARY | 2023-08-07 10:52 | XMS_ITS | Encounter Summary ---
Author Name Unknown Organization [facility] Address [address] [place] [address] Care Team Providers Care Reconcilement Clerk Name Role Phone Seema Reina.A.-CRiley Primary Care Provider +1- [phone] Reason for Visit * Reason Comments Med Change Request Encounter Details Date Type Department Care Team (Late st Contact Info) Description 10/09/2022 Refill Department of Family Medicine, [facility] [place], in [place], [place] [address] [address] Seema Reina P.A.-CRiley [address], [place] [address] Med Change Request Social History [...] declined 09/11/2022 How often do you attend judaism or yarsanism serv ices? 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 [address] [place] [phone] PCP - General 09/07/20 documented as of this encounter
--- OUTSIDE RECORDS SUMMARY | 2023-08-07 10:53 | XMS_ITS | Clinical Summary ---
Author Name Unknown Organization [facility] Address [place], [place] [address] Care Team Providers Care Repairer And Checker Name Role Phone Pcp, No Primary Care [...] Encounters Date Type Department Care Team Description 07/16/2023 Lab Requisition [facility] [phone] Nicol Terrell MD 06/04/2023 Lab Requisition [facility] [phone] Nicol Terrell MD from Last 3 Months [...] Associated Diagnosis Comments LAB TRACKING EVENT Routine 07/16/2023 8: 00 AM IN FLIGHT REFUELING SYSTEM REPAIRER PATH TISSUE EXAM Routine 07/16/2023 8:00 AM IN FLIGHT REFUELING SYSTEM REPAIRER LAB TRACKING EVENT Routine 06/03/2023 12 :00 PM IN FLIGHT REFUELING SYSTEM REPAIRER PATH TISSUE EXAM Routine 06/03/2023 12:0 0 PM IN FLIGHT REFUELING SYSTEM REPAIRER from Last 3 Months Results * LAB TRACKING EVENT (07/16/2023 8:00 AM IN FLIGHT REFUELING SYSTEM REPAIRER) Only the most recent of2 resultswithin the time period is included. Other (Other) Client Collect / Unknown 07/16/2023 8:00 AM IN FLIGHT REFUELING SYSTEM REPAIRER 07/16/2023 10:13 PM IN FLIGHT REFUELING SYSTEM REPAIRER Nicol Terrell MD LAB BILL ONLY [facility] [address] [place] [address], * PATH TISSUE EXAM (07/16/2023 8:00 AM IN FLIGHT REFUELING SYSTEM REPAIRER) Only the most recent of2 resultswithin the time period is included. Case Report Pathology Report ?Case: [id number] ? Authorizing Provider: ??Nicol Terrell MD ?? Collected: ? 07/16/2023 0800 ? Ordering Location: ? [facility] ?Received: ?07/17/2023 1118 ? Pathologist: ? Jose Smith MD ? Specimens: ?? A) - Endometrial Curettings ? B) - Ovarian Cyst ? C) - Umbilical, Periumbilical Nodule ? 07/22/2023 4:06 PM [facility] Final Diagnosis A) ENDOMETRIUM, CURETTAGE: 1. Proliferative endometrium 2. Negative for chronic endometritis 3. Negative for hyperplasia, atypia, and malignancy B) LEFT OVARIAN CYST, OVARIAN CYSTECTOMY: 1. Benign stroma and focal cyst wall lining, with features suggestive of endometriosis 2. Negative for atypia and malignancy C) PERIUMBILICAL NODULE, EXCISION: 1. Benign nodular scar tissue 2. Negative for malignancy 07/22/2023 4:06 PM [facility] [employer] [facility]AT[facility]-C ENTRAL LABORATORY Clinical Information Menorrhagia, endometriosis, umbilical lesion, pelvic pain 07/22/2023 4:06 PM [facility] Gross Description A) Received in formalin, labeled with the patient's name and endometrial curettings, is a 3.8 x 2.6 x 0.5 cm aggregate of pink-calabrese mucosa admixed with clotted blood and mucous. The specimen is entirely submitted in 2 cassettes. B) Received in formalin, labeled with the patient's name and left ovarian cyst wall, is a 0.6 x 0.3 x 0.2 cm aggregate of 2 calabrese tissue fragments, which are submitted in toto in 1 cassette. C) Received in formalin, labeled with the patient's name and periumbilical nodule, is a 0.9 x 0.4 cm unoriented calabrese skin ellipse, excised to a maximum depth of 0.5 cm. ??No definitive lesions are identified on the skin surface. ??The specimen is inked green and serially sectioned. ??The specimen is entirely submitted as follows: 1. ??Tips 2. ??Central sections JKT 07/18/2023 07/22/2023 4:06 PM [facility] Microscopic Description The final diagnosis is based on microscopic examination of appropriate sections of all specimens. Immunohistochemi kingsley staining was performed on Part C, the results of which are as follows: - SMA: Positive - Desmin: Negative - S100: Negative 07/22/2023 4:06 PM IN FLIGHT REFUELING SYSTEM REPAIRER [facility] Additional Information Interpreted at [facility] - [address] [facility] [address], [place] [address] 07/22/2023 4:06 PM [facility] Other (Endometrial Curettings) 07/16/2023 8:00 AM IN FLIGHT REFUELING SYSTEM REPAIRER 07/17/2023 11:18 AM IN FLIGHT REFUELING SYSTEM REPAIRER Specimen (specimen) OVARIAN CYST SPECIMEN / Unknown 07/16/2023 8:00 AM IN FLIGHT REFUELING SYSTEM REPAIRER 07/17/2023 11:18 AM IN FLIGHT REFUELING SYSTEM REPAIRER Specimen (specimen) (Umbilical) 07/16/2023 8:00 AM IN FLIGHT REFUELING SYSTEM REPAIRER 07/17/2023 11:18 AM IN FLIGHT REFUELING SYSTEM REPAIRER Nicol Terrell MD PATHOLOGY/CYTOLOG Y [facility] [address] [place] [address], from Last 3 Months Advance Directives Latest [...] 9:05 PM 05/10/2013 12:36 AM Care Teams Repairer And Checker Relationship Specialty Start Date End Date Pcp, No . PCP - General 11/06/21
== END 2023-08-06 14:20 | disposition home or self-care (01) ==
LOC: NFLDREF 08-07 10:46
PROVIDERS: Visit Provider Obstetrics & Gynecology
DX: R32 Unspecified urinary incontinence (principal)
CPT/HCPCS: 87086

== ENCOUNTER 2023-12-18 11:30 | Outpatient (CLI) | payer BC, MEDICAID, SELFPAY | END 2023-12-18 11:31 | disposition home or self-care (01) | PROVIDERS: Visit Provider Registered Nurse | DX: K63.89 Other specified diseases of intestine (principal) | CPT/HCPCS: 82947; 86140 ==

== ENCOUNTER 2024-05-09 11:11 | Emergency (ER) | payer BC, OTHER, SELFPAY ==
[2024-05-09 11:27] VITALS: BP 107/73; PULSE 80; RESP 18; TEMP 36.8; O2SAT 98; BMI 32.1
--- NOTE | 2024-05-09 11:53 | ED_ITS ---
HPI - General Adult General Chief complaint: Chest Pain Stated complaint: chest pains, super tired Time Seen by Provider: 05/09/24 11:38 History of Present Illness HPI narrative: This 33-year-old female comes in reporting chest discomfort in the right upper anterior chest radiate around to her back. This started about 7 days ago. She does not report any strenuous activity or injury event. She states that the pain is distinctly reproducible when taking a deep breath, pressing on this area, and with certain movements. She does not report any nausea, vomiting, lightheadedness, shortness of breath, diaphoresis, or exercise intolerance. Related Data Home Medications ?Medication ?Instructions ?Recorded ?Confirmed docusate sodium 100 mg capsule 500 mg PO DAILY 03/15/22 05/09/24 (Colace) Previous Rx's ?Medication ?Instructions ?Recorded ketorolac 10 mg tablet 10 mg PO TID 5 days #20 tabs 05/09/24 Allergies Allergy/AdvReac Type Severity Reaction Status Date / Time latex Allergy Unknown Verified 05/09/24 11:32 omeprazole Allergy Unknown Verified 05/09/24 11:32 ranitidine Allergy Unknown Verified 05/09/24 11:32 magnesium sulfate (From Allergy Numbness Verified 05/09/24 11:32 Epsom Salt) hydroxyzine AdvReac Intermediate Verified 05/09/24 11:32 Review of Systems Status of ROS: Reports: 10 or more systems reviewed and unremarkable except as noted in History and below Narrative: Constitutional: No fevers, no weight gain or loss. Eyes: No discharge. No vision changes. HENT: No congestion, no sore throat, no ear pain. Cardiovascular: No palpitations. Respiratory: No shortness of breath, no wheezes, no cough. Gastrointestinal: No abdominal pain, no vomiting, no diarrhea. Genitourinary: No dysuria, no hematuria. Musculoskeletal: Normal range of motion. Skin: No rashes, no pruritis. Neurological: No dizziness, weakness, sensory change, speech change. Endo/Heme/Allergies: No bruising or bleeding. No polydipsia. Pysch: no suicidality, no anxiety, no insomnia. All other systems reviewed and are negative. [facility] Medical History (Updated 05/09/24 @ 11:56 by Herminio Browning MD) Long QT interval ?R94.31 - Abnormal electrocardiogram [ECG] [EKG] (ICD-10) Migraine headache ?G43.909 - Migraine, unspecified, not intractable, without status migrainosus (ICD-10) Anxiety attack ?F41.0 - Panic disorder [episodic paroxysmal anxiety] (ICD-10) Second degree perineal laceration during delivery ?O70.1 - Second degree perineal laceration during delivery (ICD-10) (normal spontaneous vaginal delivery) (03/11/22) ?O80 - Encounter for full-term uncomplicated delivery (ICD-10) Endometriosis ?N80.9 - Endometriosis, unspecified (ICD-10) IBS (irritable bowel syndrome) ?K58.9 - Irritable bowel syndrome without diarrhea (ICD-10) Heart palpitations ?R00.2 - Palpitations (ICD-10) Vaginal delivery ?O80 - Encounter for full-term uncomplicated delivery (ICD-10) Posttraumatic stress disorder ?F43.10 - Post-traumatic stress disorder, unspecified (ICD-10) Nondependent cannabis abuse in remission ?F12.11 - Cannabis abuse, in remission (ICD-10) Surgical History Status post laparoscopy ?Z98.890 - Other specified postprocedural states (ICD-10) H/O bilateral salpingectomy ?Z90.79 - Acquired absence of other genital organ(s) (ICD-10) H/O dilation and curettage ?Z98.890 - Other specified postprocedural states (ICD-10) S/P sinus surgery ?Z98.890 - Other specified postprocedural states (ICD-10) H/O esophagogastroduodenoscopy ?Z98.890 - Other specified postprocedural states (ICD-10) Abnormal colonoscopy ?R93.3 - Abnormal findings on diagnostic imaging of other parts of digestive tract (ICD-10) Family History Uncle Long QT syndrome Other Asthma Bipolar 1 disorder Depression Generalized anxiety disorder Social History Narrative: Lives in [place]. 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 , 3 kids No tobacco No ETOH during No drug use. Smoking Status: Never smoker How often do you have a drink containing alcohol: never AUDIT-C Alcohol total score: 0 Non-prescribed substance use: denies use Caffeine: Yes Are you using contraception or practicing any form of control: No Exam Narrative: Exam Narrative: Constitutional: Well-developed, well-nourished, no acute distress. HEENT: Normocephalic, atraumatic. Neck: Normal range of motion. Nontender. Supple. Heart: Regular. No murmurs. Normal rate. Intact distal pulses. Lungs: Clear to auscultation. No wheezes, rhonchi, or rales. Chest: Pain is distinctly reproducible in the right upper anterior chest when palpating this area and when taking a deep breath. Abdomen: Normal bowel sounds. Nontender. No rebound tenderness. Genitalia: Deferred. Back: No midline tenderness. Normal range of motion. Extremities: Normal range of motion. No injury. Skin: Intact. No rash. Warm. No erythema or pallor. Neurologic: No altered sensation. No weakness. Alert and oriented. Psychiatric: No suicidality. No anxiety or depression. No insomnia. Nursing notes and vitals signs are reviewed. Const: Vital Signs, click to edit/add: Vital Signs - 24 hr 05/09/24 11:27 Temperature 98.2 F Pulse Rate [Right Pulse Oximeter] 80 Respiratory Rate 18 Blood Pressure [Ri ght Upper Arm] 107/73 Pulse Oximetry 98 Oxygen Delivery Me thod Room Air Course Vital Signs Vital signs: Initial Vital Signs Temperature 98.2 F 05/09/24 11:27 Temperature Source Temporal Artery Scan 05/09/24 11:27 Pulse Rate 80 05/09/24 11:27 Pulse Rhythm Regular 05/09/24 11:27 Respiratory Rate 18 05/09/24 11:27 Blood Pressure 107/73 05/09/24 11:27 Blood Pressure Mean 84 05/09/24 11:27 Blood Pressure Position Sitting 05/09/24 11:27 Pulse Oximetry 98 05/09/24 11:27 Oxygen Delivery Method Room Air 05/09/24 11:27 Vital Signs Temperature 98.2 F 05/09/24 11:27 Pulse Rate 80 05/09/24 11:27 Respiratory Rate 18 05/09/24 11:27 Blood Pressure 107/73 05/09/24 11:27 Pulse Oximetry 98 05/09/24 11:27 Oxygen Delivery Method Room Air 05/09/24 11:27 Temperature 98.2 F 05/09/24 11:27 Pulse Rate 80 05/09/24 11:27 Respiratory Rate 18 05/09/24 11:27 Blood Pressure 107/73 05/09/24 11:27 Pulse Oximetry 98 05/09/24 11:27 Oxygen Delivery Method Room Air 05/09/24 11:27 Medical Decision Making MDM Narrative Medical decision making narrative: This patient comes in with symptoms typical of chest wall pain as her symptoms are distinctly reproducible with deep breath and with palpating on her right upper anterior chest wall. I did discuss lab and imaging options and these were declined in a process of shared decision making. The patient did receive a prescription for Toradol. I did also indicate that some people get benefit by wearing a rib belt. Discharge Plan Discharge Clinical Impression: Chest wall pain Patient Disposition: Home, Self-Care Condition: Stable Additional Instructions: Take medication as prescribed and needed. Use vyta-iur-lbylmaj medicines also as needed and directed. Increase activity as tolerated. Follow up with MD return if worsening. Prescriptions: New ketorolac 10 mg tablet 10 mg PO TID 5 Days Qty: 20 0RF No Action docusate sodium [Colace] 100 mg capsule 500 mg PO DAILY Follow Up/Referrals: Jennifer Doll, FRAMING INSPECTOR [Primary Care Provider] - Stand Alone Forms: [employer] Info Instructions
== END 2024-05-09 12:13 | disposition home or self-care (01) ==
LOC: ED 12:10
PROVIDERS: Emergency Provider Emergency Medicine Emergency Medical Services; PCP Registered Nurse
DX: R07.89 Other chest pain (principal)
CPT/HCPCS: 99284

== ENCOUNTER 2024-05-10 12:58 | Outpatient (CLI) | payer BC, OTHER, SELFPAY ==
--- OUTSIDE RECORDS SUMMARY | 2024-05-10 13:01 | XMS_ITS | Clinical Summary ---
Author Organization [facility] Address [place], [place] [address] Care Team Providers Care Dehydrogenation Supervisor Name Role Phone [facility] Allergies Active Allergy Reactions Criticality Noted Date [...] Anxiety with Depression, Previous provider- Jayde Grande Active venlafaxine (EFFEXOR XR) 75 mg cp24 Extended-Release capsuleIndications: anxiety with depression,Previous provider- Jayde Grande Take 75 mg by mouth at bedtime. Indications: Anxiety with Depression, Previous provider- Jayde Grande Active traZODone (DESYREL) 50 mg tablet Take 50-100 mg by mouth at bedtime if needed for Sleep. Active SUMAtriptan (IMITREX) 50 mg tablet Take 50 mg by mouth. Give at minimum 2hrs apart. Max Dose: 200mg per 24hrs. Active albuterol (PROVENTIL) 0.083 % neb solution Inhale 2.5 mg via a nebulizer every 6 hours if needed. Active levonorgestrel intrauterine device (MIRENA) 20 mcg/24 hr (5 years) IUD Inject 1 Device intrauterine one time. Active docusate (COLACE) 100 mg capsuleIndications: Chronic constipation Take 1 capsule by mouth 2 times daily. 60 capsule 3 02/28/2017 Active busPIRone (BUSPAR) 10 mg tablet Take 10 mg by mouth once daily. Active LORazepam (ATIVAN) 0.5 mg tabIndications:Vert igo Place 1 tablet under the tongue every 8 hours if needed for Other (Specify) (vertigo) for up to 3 doses. 3 tablet 05/11/2017 Active Phentermine HCl 37.5 mg capsule Take 37.5 mg by mouth once daily. 0 08/19/2018 Active topiramate (TOPAMAX) 50 mg tablet Take 50 mg by mouth 2 times daily. 0 06/12/2018 Active cyclobenzaprine (FLEXERIL) 10 mg tabletIndications:N elizabeth pain, acute Take 1 tablet by mouth 3 times daily if needed for Muscle Spasm. 15 tablet 08/23/2018 Active oxyCODONE (ROXICODONE) 5 mg immediate release tabletIndications:E piploic appendagitis Take 1 Tablet (5 mg) by mouth every 6 hours if needed for Pain. 15 Tablet 12/11/2023 Active meloxicam 15 mg tabletIndications:E piploic appendagitis Take 1 Tablet (15 mg) by mouth once daily. 5 Tablet 12/11/2023 Active Active Problems Problem Noted Date Diagnosed Date GI bleed 11/21/2016 URTI (acute upper respiratory infection) 014 Cough 12/10/2013 Fever 12/10/2013 h/o Migraine 12/10/2013 h/o Asthma 12/10/2013 Premenopausal menorrhagia 06/12/2011 Pelvic pain in female 06/10/2011 Family History Medical History Relation Name Comments [...] drink = 0.6 oz pur e alcohol) Sex and Gender Information Value Date Recorded Sex Assigned at Not on file Gender Identity Not on file Sexual Orientation Not on file Obstetrics History Para Term AB IAB SAB Ectopic Multiple Livin g Live Births 3 1 1 1 Date Outcome GA Total Labor Labor/2nd/3rd Weight Sex Type Anes PTL Xuan A1 A5 Name Clin Comments:System Genera opal. Please review and update details. 06/2009 Para F Vag Epidur al Livin g Last Filed Vital Signs Vital Sign Reading Time Taken Comments Blood Pressure 127/75 12/11/2023 8:56 AM CDT Pulse 66 12/11/2023 8:56 AM CDT Temperature 36.8 C (98.3 F) 12/11/2023 8:56 AM CDT Respiratory Rate 14 12/11/2023 8:56 AM CDT Oxygen Saturation 98% 12/11/2023 8:56 AM CDT Inhaled Oxygen Concentration - - Weight 92.5 kg (204 lb) 12/11/2023 8:56 AM CDT Height 170.2 cm (5' 7) 12/11/2023 8:56 AM CDT Body Mass Index 31.95 12/11/2023 8:56 AM CDT Plan of Treatment Health Maintenance Due Date Last Done Comments Tdap 2001 Depression screening for age 12+ 2002 HIV for age 15-65 2005 Hepatitis C screening for age 18-79 2008 Tetanus booster 2010 BMI (ht and wt on same day) for age 18+ 02/21/2018 02/21/2017, 11/20/2016, 03/15/2016, Additional history exists COVID-19 vaccine series (2023- season) 2024 Influenza for age 9-49 02/22/2024 Pap test for age 21-65 08/10/2024 08/10/2021, 2021 Pneumococcal series for age 6-64 Aged Out No longer eligible based on patient's age to complete this topic Procedures Procedure Name Priority Date/Time Associated Diagnosis Comments HPV HIGH RISK Routine 08/10/2021 2:25 PM HALL [facility]ER from Last 3 Months or Most Recently Relevant to Health Maintenance Results * (ABNORMAL) HPV HIGH RISK (08/10/2021 2:25 PM HALL CLEANER) TYPE 16 Negative Negative 08/16/2021 11:22 AM HALL CLEANER [facility] TYPE 18 Negative Negative 08/16/2021 11:22 AM HALL CLEANER [facility] OTHER HIGH RISK TYPES Positive(A) Negative 08/16/2021 11:22 AM HALL CLEANER [facility] Other (Cervical/Vagina l) 08/10/2021 2:25 PM HALL CLEANER 08/14/2021 8:48 AM HALL CLEANER Narrative [facility] - 08/16/2021 11:22 AM HALL CLEANER Specimen is positive for the DNA of any one of, or combination of, the following high risk HPV types: 31, 33, 35, 39, 45, 51, 52, 56, 58, 59, 66, 68. HPV types 16 and 18 DNA were undetectable or below the pre-set threshold. Methodology: Dagmar Rosalind 4800 HPV Test September Yoselin ORELLANA MICROBI[employer] [facility] [address] [place] [address], from Last 3 Months or Most Recently Relevant to Health Maintenance Advance Directives * Full Code (Latest Code Status on File) Date Activated Date Inactivated Comments 11/21/2016 12:28 AM 11/22/2016 8:38 PM * Full Code Date Activated Date Inactivated Comments 08/29/2015 11:04 AM 08/30/2015 7:02 PM * Full Code Date Activated Date Inactivated Comments 12/10/2013 11:06 PM 12/12/2013 2:31 PM * Full Code Date Activated Date Inactivated Comments 08/13/2013 8:00 AM 08/13/2013 12:57 PM * Full Code Date Activated Date Inactivated Comments 05/09/2013 9:05 PM 05/10/2013 12:36 AM Care Teams Dehydrogenation Supervisor Relationship Specialty Start Date End Date [facility] [address] [place] [id number] PCP - General 12/11/23
== END 2024-05-10 12:59 | disposition home or self-care (01) ==
LOC: NFLDREF 12:58
PROVIDERS: PCP Registered Nurse; Visit Provider Registered Nurse
DX: R07.89 Other chest pain (principal)
CPT/HCPCS: 80048